=== PATIENT | female | born 2000 | race Caucasian/White ===

== ENCOUNTER 2020-07-21 17:39 | Emergency (ER) | payer SELFPAY ==
[2020-07-21 18:22] VITALS: BP 109/77; PULSE 108; RESP 14; TEMP 36.4; O2SAT 98; BMI 35.5
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
[2020-07-21] MEDS: ketorolac 60 mg/2 mL INJ IM (19:25)
[2020-07-21 20:06] VITALS: BP 113/75; PULSE 96; RESP 14; O2SAT 97
== END 2020-07-21 20:06 | disposition home or self-care (01) ==
PROVIDERS: Emergency Provider Physician Assistant; PCP Family Medicine
DX: Z04.1 Encounter for examination and observation following transport accident (principal); G44.319 Acute post-traumatic headache, not intractable; R07.89 Other chest pain; V47.6XXA Car passenger injured in collision with fixed or stationary object in traffic accident, initial encounter
CPT/HCPCS: 70450; 71101; 99283; J1885

== ENCOUNTER 2020-11-23 21:00 | Inpatient (IN) | payer SELFPAY ==
[2020-11-23 21:09] VITALS: BP 139/88; PULSE 113; RESP 16; TEMP 36.6; O2SAT 97; BMI 34.7
--- NOTE | 2020-11-23 21:18 | W.ED.PSYCH ---
Documented by User: KARIME Andrade 11/24/20 02:20 HPI - Psych General: Chief Complaint: Psychiatric Symptoms Stated Complaint: SI Time Seen by Provider: 11/23/20 21:12 History of Present Illness: HPI Narrative: Patient is a 20-year-old female comes to the ED with SI. She states she has a history of depression, anxiety and SI and was on some antidepressant medications couple years ago but when she became an adult she lost insurance and has not been on any meds since. Patient says symptoms started approximately 1 week ago. Denies any acute distress or causing worsening symptoms. she denies any plan. She is also a cutter and made some superficial cuts on her left wrist but today before coming to the ED. She endorses worsening depression and she says she sometimes sleeps a lot and other times she can hardly get any sleep during the night. She also endorses increased anxiety currently. Denies any HI, auditory or visual hallucinations. Associated symptoms: Reports depression and suicidal ideation; Deny auditory hallucinations, visual hallucinations or homicidal ideation Review of Systems Const: Denies: fever(s), chills or fatigue Eyes: Denies: change in vision or eye discomfort ENMT: Denies: throat pain, odynophagia, nasal discharge or nasal congestion Card: Denies: chest pain, palpitations, edema, swelling of feet/ankles, dyspnea on exertion or orthopnea Resp: Denies: dyspnea, productive cough or non-productive cough GI: Denies: abdominal pain, nausea, vomiting, diarrhea, constipation or hematochezia : Denies: flank pain, dysuria or hematuria Musc: Denies: neck pain, back pain or extremity swelling Skin/Breast: Denies: rash or new lesions Neuro: Denies: headache(s), numbness in extremities or weakness in extremities Psych: Reports: anxiety, depression, sleeping less, sleeping more and suicidal ideation; Denies: visual hallucinations, auditory hallucinations or homicidal ideation COUNT INCLUDES THE [facility] ED Female Reproductive History: Date of last menstrual period: 11/23/20 Physical Exam Const: COMMON NORMALS: patient oriented x3 HENMT: COMMON NORMALS: normocephalic HEAD & SCALP: normocephalic MOUTH: Normal oral and palatal mucosa present THROAT: posterior oropharynx normal and uvula midline Neck/C-Spine: COMMON NORMALS: supple GENERAL: Yes normal visual inspection Resp: COMMON NORMALS: normal respiratory effort, No retractions, No use of accessory muscles and clear to auscultation bilaterally AUSCULTATION: clear to auscultation bilaterally Cardio: COMMON NORMALS: regular rate, regular rhythm, S1 normal heart sound present, S2 normal heart sound present, No gallops present (Cardio), No clicks present (Cardio), No murmurs present (Cardio) and Peripheral pulses 2+ throughout RATE: regular rate RHYTHM: regular rhythm HEART SOUNDS: S1 normal heart sound present and S2 normal heart sound present PERIPHERAL PULSES: Peripheral pulses 2+ throughout GI: COMMON NORMALS: Normal to inspection, nondistended, normoactive bowel sounds present, Soft to palpation, non-tender and no masses PALPATION: Yes Soft to palpation : COMMON NORMALS: Yes no CVA tenderness BLADDER/KIDNEY EXAM: Yes no CVA tenderness Back/Pelvis: COMMON NORMALS: no CVA tenderness Extremity: COMMON NORMALS: normal to inspection Neuro: COMMON NORMALS: patient oriented x3 and moves all extremities Psych: COMMON NORMALS: Normal thought process present and speech normal APPEARANCE: Yes grossly normal ATTITUDE: Yes calm ACTIVITY/MOTOR BEHAVIOR: Yes Avoids eye contact (attititude/behavior) SPEECH: Yes normal speech MOOD & AFFECT: Yes Flat affect present THOUGHT PROCESS: Normal thought process present THOUGHT CONTENT: Yes Suicidality present, No Homicidality present and No Hallucination(s) present ATTENTION/CONCENTRATION: Yes attention grossly intact and Yes concentration grossly intact MEMORY/COGNITION: Yes memory grossly intact and Yes cognition grossly intact INSIGHT: Fair insight present (Psych) JUDGEMENT: Fair judgement present (Psych) Skin: GENERAL SKIN EXAM: dry skin Course Consultations: Consultation #1: Contacted Dr. Hdz and told about patient case. He agreed to have patient admitted into the NPU. Vital Signs: Vital signs: Vital Signs Temperature 97.5 F L 11/24/20 00:13 Pulse Rate 91 11/24/20 00:13 Respiratory Rate 20 H 11/24/20 00:13 Blood Pressure 111/75 11/24/20 00:13 Pulse Oximetry 95 11/24/20 00:13 MDM - Psych MDM Narrative: Medical decision making narrative: Patient is a 20-year-old female comes to the ED with SI worsening depression symptoms. Patient denies any other physical symptoms such as fever, chills, abdominal pain, nausea/vomiting, chest pain, bladder or bowel symptoms. All prescreening labs performed. I contacted Dr. Hdz about patient case and he agreed to have patient admitted to NPU. Dr. Matamoros placed the admitting orders. Lab Data: Attestation: I reviewed the patient's lab results. Labs: Lab Results 11/23/20 11/23/20 11/23/20 Range/Units 22:00 22:00 22:00 WBC 8.8 (4.5-13.0) 10^3/ uL RBC 5.10 (4.1-5.3) 10^6/u L Hgb 14.8 (11.5-15.3) g/dL Hct 45.6 (37.0-47.0) % MCV 89.4 (81-99) fL MCH 29.0 (28.0-34.0) pg MCHC 32.5 (30.0-36.0) g/dL RDW 13.2 (12.1-15.1) % Plt Count 433 H (130-400) 10^3/c mm MPV 9.8 (7.4-10.4) fL Neut % (Auto) 55.5 % Lymph % (Auto) 35.5 % Casey % (Auto) 6.9 % Eos % (Auto) 1.3 % Baso % (Auto) 0.5 % Neut # (Auto) 4.88 (1.8-8.0) 10^3/u L Lymph # (Auto) 3.1 (1.5-6.5) 10^3/u L Casey # (Auto) 0.6 (0.2-0.9) 10^3/u L Eos # (Auto) 0.1 (0.0-0.8) 10^3/u L Baso # (Auto) 0.0 (0.0-0.1) 10^3/u L Nucleated RBC % (a uto) 0 % Nucleated RBCs # 0.0 /100WBC Sodium 145 (136-145) mmol/L Potassium 3.8 (3.5-5.1) mmol/L Chloride 107 (98-107) mmol/L Carbon Dioxide 25 (22-29) mmol/L Anion Gap 16.8 (5-19) BUN 5 L (6-20) mg/dL Creatinine 0.6 (0.5-0.9) mg/dL GFR Calculation 127.5 (90-130) mL/min Glucose 94 (65-115) mg/dL Calculated Osmolal ity 297 H (285-295) mOsm/k g Calcium 9.2 (8.5-10.5) mg/dL Total Bilirubin 0.2 (0.15-1.2) mg/dL AST 15 (0-32) U/L ALT 15 (0-33) U/L Alkaline Phosphata se 77 (35-105) IU/L Total Protein 7.1 (6.6-8.7) g/dL Albumin 4.0 (3.5-5.2) g/dL Globulin 3.1 (1.3-4.6) g/dL HCG, Qual Negative (Negative) Urine Color (Yellow) Urine Appearance (CLEAR) Urine pH (5-7) Ur Specific Gravit y (1.005-1.030) Urine Protein (Negative) Urine Glucose (UA) (Normal) Urine Ketones (Negative) Urine Blood (Negative) Urine Nitrate (Negative) Urine Bilirubin (Negative) Urine Urobilinogen (Negative) mg/dL Ur Leukocyte Porsha ase (Negative) Urine RBC (0-2) /hpf Urine WBC (0-5) /hpf Ur Squamous Epith Cells (0-5) /hpf Amorphous Sediment Urine Bacteria (NONE) /hpf Urine Mucus /hpf Salicylates < 0.3 L (3-10) mg/dL Urine Opiates Scre en (Negative) ng/mL Acetaminophen 17.0 (10-30) ug/mL Ur Barbiturates Sc reen (Negative) ng/mL Ur Phencyclidine S crn (Negative) ng/mL Ur Amphetamines Sc reen (Negative) ng/mL U Benzodiazepines Scrn (Negative) ng/mL Urine Cocaine Scre en (Negative) ng/mL U Marijuana (THC) Screen (Negative) ng/mL Ethyl Alcohol < 10 (0-10) mg/dL 11/23/20 11/23/20 Range/Units 22:00 22:00 WBC (4.5-13.0) 10^3/ uL RBC (4.1-5.3) 10^6/u L Hgb (11.5-15.3) g/dL Hct (37.0-47.0) % MCV (81-99) fL MCH (28.0-34.0) pg MCHC (30.0-36.0) g/dL RDW (12.1-15.1) % Plt Count (130-400) 10^3/c mm MPV (7.4-10.4) fL Neut % (Auto) % Lymph % (Auto) % Casey % (Auto) % Eos % (Auto) % Baso % (Auto) % Neut # (Auto) (1.8-8.0) 10^3/u L Lymph # (Auto) (1.5-6.5) 10^3/u L Casey # (Auto) (0.2-0.9) 10^3/u L Eos # (Auto) (0.0-0.8) 10^3/u L Baso # (Auto) (0.0-0.1) 10^3/u L Nucleated RBC % (a uto) % Nucleated RBCs # /100WBC Sodium (136-145) mmol/L Potassium (3.5-5.1) mmol/L Chloride (98-107) mmol/L Carbon Dioxide (22-29) mmol/L Anion Gap (5-19) BUN (6-20) mg/dL Creatinine (0.5-0.9) mg/dL GFR Calculation (90-130) mL/min Glucose (65-115) mg/dL Calculated Osmolal ity (285-295) mOsm/k g Calcium (8.5-10.5) mg/dL Total Bilirubin (0.15-1.2) mg/dL AST (0-32) U/L ALT (0-33) U/L Alkaline Phosphata se (35-105) IU/L Total Protein (6.6-8.7) g/dL Albumin (3.5-5.2) g/dL Globulin (1.3-4.6) g/dL HCG, Qual (Negative) Urine Color Yellow (Yellow) Urine Appearance Clear (CLEAR) Urine pH 6 (5-7) Ur Specific Gravit y 1.010 (1.005-1.030) Urine Protein Neg (Negative) Urine Glucose (UA) Norm (Normal) Urine Ketones Negative (Negative) Urine Blood 3+ H (Negative) Urine Nitrate Negative (Negative) Urine Bilirubin Neg (Negative) Urine Urobilinogen 1 H (Negative) mg/dL Ur Leukocyte Porsha ase Negative (Negative) Urine RBC 25-40 H (0-2) /hpf Urine WBC 0-4 H (0-5) /hpf Ur Squamous Epith Cells 10-15 H (0-5) /hpf Amorphous Sediment Not Reportable Urine Bacteria Trace (NONE) /hpf Urine Mucus 4+ /hpf Salicylates (3-10) mg/dL Urine Opiates Scre en Negative (Negative) ng/mL Acetaminophen (10-30) ug/mL Ur Barbiturates Sc reen Negative (Negative) ng/mL Ur Phencyclidine S crn Negative (Negative) ng/mL Ur Amphetamines Sc reen Negative (Negative) ng/mL U Benzodiazepines Scrn Negative (Negative) ng/mL Urine Cocaine Scre en Negative (Negative) ng/mL U Marijuana (THC) Screen Positive H (Negative) ng/mL Ethyl Alcohol (0-10) mg/dL Discharge Plan Discharge Patient Disposition: Admitted As Inpatient Admit Provider: Josse Hdz Clinical Impression: Suicidal ideation Condition: Stable Coding Level of Care Code ED Dye Range Operator for Chg Fwd Exam Comprehensive Documented by User: Danny Matamoros DO 11/24/20 05:32 HPI - Psych General: Chief Complaint: Psychiatric Symptoms Stated Complaint: SI Time Seen by Provider: 11/23/20 21:12 Course Vital Signs: Vital signs: Vital Signs Temperature 97.5 F L 11/24/20 00:13 Pulse Rate 91 11/24/20 00:13 Respiratory Rate 20 H 11/24/20 00:13 Blood Pressure 111/75 11/24/20 00:13 Pulse Oximetry 95 11/24/20 00:13 MDM - Psych MDM Narrative: Medical decision making narrative: Patient originally seen by Mr. Jayro PA-C. I agree with his history, evaluation, and work-up. This patient is medically stable. She is suicidal. She is willing to come in. She will go to the NPU. Lab Data: Labs: Lab Results 11/23/20 11/23/20 11/23/20 Range/Units 22:00 22:00 22:00 WBC 8.8 (4.5-13.0) 10^3/ uL RBC 5.10 (4.1-5.3) 10^6/u L Hgb 14.8 (11.5-15.3) g/dL Hct 45.6 (37.0-47.0) % MCV 89.4 (81-99) fL MCH 29.0 (28.0-34.0) pg MCHC 32.5 (30.0-36.0) g/dL RDW 13.2 (12.1-15.1) % Plt Count 433 H (130-400) 10^3/c mm MPV 9.8 (7.4-10.4) fL Neut % (Auto) 55.5 % Lymph % (Auto) 35.5 % Casey % (Auto) 6.9 % Eos % (Auto) 1.3 % Baso % (Auto) 0.5 % Neut # (Auto) 4.88 (1.8-8.0) 10^3/u L Lymph # (Auto) 3.1 (1.5-6.5) 10^3/u L Casey # (Auto) 0.6 (0.2-0.9) 10^3/u L Eos # (Auto) 0.1 (0.0-0.8) 10^3/u L Baso # (Auto) 0.0 (0.0-0.1) 10^3/u L Nucleated RBC % (a uto) 0 % Nucleated RBCs # 0.0 /100WBC Sodium 145 (136-145) mmol/L Potassium 3.8 (3.5-5.1) mmol/L Chloride 107 (98-107) mmol/L Carbon Dioxide 25 (22-29) mmol/L Anion Gap 16.8 (5-19) BUN 5 L (6-20) mg/dL Creatinine 0.6 (0.5-0.9) mg/dL GFR Calculation 127.5 (90-130) mL/min Glucose 94 (65-115) mg/dL Calculated Osmolal ity 297 H (285-295) mOsm/k g Calcium 9.2 (8.5-10.5) mg/dL Total Bilirubin 0.2 (0.15-1.2) mg/dL AST 15 (0-32) U/L ALT 15 (0-33) U/L Alkaline Phosphata se 77 (35-105) IU/L Total Protein 7.1 (6.6-8.7) g/dL Albumin 4.0 (3.5-5.2) g/dL Globulin 3.1 (1.3-4.6) g/dL HCG, Qual Negative (Negative) Urine Color (Yellow) Urine Appearance (CLEAR) Urine pH (5-7) Ur Specific Gravit y (1.005-1.030) Urine Protein (Negative) Urine Glucose (UA) (Normal) Urine Ketones (Negative) Urine Blood (Negative) Urine Nitrate (Negative) Urine Bilirubin (Negative) Urine Urobilinogen (Negative) mg/dL Ur Leukocyte Porsha ase (Negative) Urine RBC (0-2) /hpf Urine WBC (0-5) /hpf Ur Squamous Epith Cells (0-5) /hpf Amorphous Sediment Urine Bacteria (NONE) /hpf Urine Mucus /hpf Salicylates < 0.3 L (3-10) mg/dL Urine Opiates Scre en (Negative) ng/mL Acetaminophen 17.0 (10-30) ug/mL Ur Barbiturates Sc reen (Negative) ng/mL Ur Phencyclidine S crn (Negative) ng/mL Ur Amphetamines Sc reen (Negative) ng/mL U Benzodiazepines Scrn (Negative) ng/mL Urine Cocaine Scre en (Negative) ng/mL U Marijuana (THC) Screen (Negative) ng/mL Ethyl Alcohol < 10 (0-10) mg/dL 11/23/20 11/23/20 Range/Units 22:00 22:00 WBC (4.5-13.0) 10^3/ uL RBC (4.1-5.3) 10^6/u L Hgb (11.5-15.3) g/dL Hct (37.0-47.0) % MCV (81-99) fL MCH (28.0-34.0) pg MCHC (30.0-36.0) g/dL RDW (12.1-15.1) % Plt Count (130-400) 10^3/c mm MPV (7.4-10.4) fL Neut % (Auto) % Lymph % (Auto) % Casey % (Auto) % Eos % (Auto) % Baso % (Auto) % Neut # (Auto) (1.8-8.0) 10^3/u L Lymph # (Auto) (1.5-6.5) 10^3/u L Casey # (Auto) (0.2-0.9) 10^3/u L Eos # (Auto) (0.0-0.8) 10^3/u L Baso # (Auto) (0.0-0.1) 10^3/u L Nucleated RBC % (a uto) % Nucleated RBCs # /100WBC Sodium (136-145) mmol/L Potassium (3.5-5.1) mmol/L Chloride (98-107) mmol/L Carbon Dioxide (22-29) mmol/L Anion Gap (5-19) BUN (6-20) mg/dL Creatinine (0.5-0.9) mg/dL GFR Calculation (90-130) mL/min Glucose (65-115) mg/dL Calculated Osmolal ity (285-295) mOsm/k g Calcium (8.5-10.5) mg/dL Total Bilirubin (0.15-1.2) mg/dL AST (0-32) U/L ALT (0-33) U/L Alkaline Phosphata se (35-105) IU/L Total Protein (6.6-8.7) g/dL Albumin (3.5-5.2) g/dL Globulin (1.3-4.6) g/dL HCG, Qual (Negative) Urine Color Yellow (Yellow) Urine Appearance Clear (CLEAR) Urine pH 6 (5-7) Ur Specific Gravit y 1.010 (1.005-1.030) Urine Protein Neg (Negative) Urine Glucose (UA) Norm (Normal) Urine Ketones Negative (Negative) Urine Blood 3+ H (Negative) Urine Nitrate Negative (Negative) Urine Bilirubin Neg (Negative) Urine Urobilinogen 1 H (Negative) mg/dL Ur Leukocyte Porsha ase Negative (Negative) Urine RBC 25-40 H (0-2) /hpf Urine WBC 0-4 H (0-5) /hpf Ur Squamous Epith Cells 10-15 H (0-5) /hpf Amorphous Sediment Not Reportable Urine Bacteria Trace (NONE) /hpf Urine Mucus 4+ /hpf Salicylates (3-10) mg/dL Urine Opiates Scre en Negative (Negative) ng/mL Acetaminophen (10-30) ug/mL Ur Barbiturates Sc reen Negative (Negative) ng/mL Ur Phencyclidine S crn Negative (Negative) ng/mL Ur Amphetamines Sc reen Negative (Negative) ng/mL U Benzodiazepines Scrn Negative (Negative) ng/mL Urine Cocaine Scre en Negative (Negative) ng/mL U Marijuana (THC) Screen Positive H (Negative) ng/mL Ethyl Alcohol (0-10) mg/dL Discharge Plan Discharge Patient Disposition: Admitted As Inpatient Admit Provider: Josse Hdz Clinical Impression: Suicidal ideation Condition: Stable Coding Level of Care Code ED Dye Range Operator for Jannyg Fwd Exam Comprehensive
[2020-11-23] MEDS: LORazepam 1 mg Tablet PO (21:49)
[2020-11-23 22:13] LABS: Basophils % 0.5 %; Eosinophils # 0.1 10^3/uL (0.0-0.8); Eosinophils % 1.3 %; Hematocrit 45.6 % (37.0-47.0); Hemoglobin 14.8 g/dL (11.5-15.3); Lymphocytes # 3.1 10^3/uL (1.5-6.5); Lymphocytes % 35.5 %; Mean Corpuscular HGB Conc 32.5 g/dL (30.0-36.0); Mean Corpuscular Volume 89.4 fL (81-99); Mean Platelet Volume 9.8 fL (7.4-10.4); Monocytes # 0.6 10^3/uL (0.2-0.9); Monocytes % 6.9 %; Neutrophils # 4.88 10^3/uL (1.8-8.0); Neutrophils % 55.5 %; Nucleated Red Blood Cells % 0 %; Platelet Count 433 10^3/cmm (130-400); Red Cell Distribution Width 13.2 % (12.1-15.1); White Blood Count 8.8 10^3/uL (4.5-13.0)
[2020-11-23 22:22] LABS: HCG, Serum Qual Negative (Negative)
[2020-11-23 22:29] LABS: Alanine Aminotransferase 15 U/L (0-33); Alkaline Phosphatase 77 IU/L (35-105); Anion Gap 16.8 (5-19); Aspartate Amino Transferase 15 U/L (0-32); Blood Urea Nitrogen 5 mg/dL (6-20); Calcium 9.2 mg/dL (8.5-10.5); Carbon Dioxide 25 mmol/L (22-29); Chloride 107 mmol/L (98-107); Globulin 3.1 g/dL (1.3-4.6); Glomerular Filtration Rate 127.5 mL/min (90-130); Glucose 94 mg/dL (65-115); Osmolality Calculated 297 mOsm/kg (285-295); Potassium 3.8 mmol/L (3.5-5.1); Sodium 145 mmol/L (136-145); Total Bilirubin 0.2 mg/dL (0.15-1.2); Total Protein 7.1 g/dL (6.6-8.7)
[2020-11-23 22:30] LABS: Alcohol Level < 10 mg/dL (0-10); Salicylate < 0.3 mg/dL (3-10)
[2020-11-23 22:36] LABS: Amphetamines Screen Urine Negative (Negative); Barbiturates Screen Urine Negative (Negative); Benzodiazepines Screen Urine Negative (Negative); Cocaine Screen Urine Negative (Negative); Opiate Screen Urine Negative (Negative); PCP Screen Urine Negative (Negative); THC Screen Urine Positive (Negative)
[2020-11-23 22:42] LABS: Bilirubin Urine Neg (Negative); Blood Urine 3+ (Negative); Glucose Urine UA Norm (Normal); Ketones Urine Negative (Negative); Leukocyte Esterase Urine Negative (Negative); Nitrate Urine Negative (Negative); Protein Urine Neg (Negative); Urine Appearance Clear (CLEAR); Urine Color Yellow (Yellow); Urobilinogen Urine 1 mg/dL (Negative); pH Urine 6 (5-7)
[2020-11-23 22:43] LABS: Bacteria Urine TRACE /hpf; Mucus Urine 4+ /hpf; RBC Urine 25-40 /hpf (0-2); WBC Urine 0-4 /hpf (0-5)
[2020-11-23 22:44] LABS: Add Urine Culture? No
[2020-11-24 00:13] VITALS: BP 111/75; PULSE 91; RESP 20; TEMP 36.4; O2SAT 95
[2020-11-24 00:14] VITALS: BMI 35.7
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
[2020-11-24 06:00] VITALS: BP 96/52; PULSE 57; RESP 16; TEMP 36.9
[2020-11-24 14:00] VITALS: BP 111/75; PULSE 57; RESP 16; TEMP 36.7; O2SAT 98
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
--- NOTE | 2020-11-24 18:37 | PC.NURSE ---
Patient became tearful and upset after this nurse asked patient to remove a cardigan that had strings on the bottom, a nose ring and a surgical mask. Possessions were placed in the the patients storage bin and safe. Nurse will continue to monitor patient and redirect as needed.
[2020-11-24] MEDS: nicotine 2 mg Gum BUCCAL (19:22)
[2020-11-24 20:12] VITALS: BP 133/79; PULSE 75; RESP 15; TEMP 36.9; O2SAT 98
[2020-11-24] MEDS: trazodone 50 mg Tablet PO (20:50)
[2020-11-25 06:00] VITALS: BP 106/70; PULSE 81; RESP 15; TEMP 37; O2SAT 96
[2020-11-25] MEDS: nicotine 2 mg Gum BUCCAL ×3 (11:21→19:37)
[2020-11-25] MEDS: citalopram 20 mg Tablet PO (13:40)
[2020-11-25] MEDS: propranolol 20 mg Tablet PO ×2 (13:40→21:37)
[2020-11-25 14:00] VITALS: BP 103/65; PULSE 70; RESP 16; TEMP 36.7; O2SAT 98
[2020-11-25] MEDS: acetaminophen 325 mg Tablet 650 MG PO ×2 (15:39→22:27)
--- NOTE | 2020-11-25 16:05 | P.PN_ITS ---
Subjective NPU Subjective: Interval history: Nas presents today reporting that things are slowly improving. She reports that she is reached out to her family and she does not have some supports after discharge. She reports that work is important and she needs to make sure that she is back on track with that as well. We discussed her medications plan moving forward. We discussed that if she wanted to resume the Adderall she would have to work with her outpatient provider who has been prescribing that on that. She reports that her insurance is a big factor in her not being on her medication still. She reports that she should have insurance soon. We discussed the possibility of discharge in the next 48 hours. Mental Status Exam MSE Comments: This is an obese white female with two-tone colored hightop fade with it significantly longer on the top hospital scrubs with adequate grooming and eye contact. No abnormal movements except for mild psychomotor retardation. Cooperative with exam in no acute distress. Speech was slightly decreased mood described as numb affect subdued. Thought process organized. Thought content: Patient denied suicidal or homicidal ideation, there are no delusions reported or noted, she denied any auditory or visual donations. Attention concentration were intact memory appeared reliable but none were fully tested. She alert and oriented x3. Insight and judgment are limited, but improving and impulse control is limited. Vitals/I&O/Wt Last Vital Signs Temp 97.8 F 11/25/20 21:14 Pulse 96 11/25/20 21:14 Resp 20 H 11/25/20 21:14 BP 124/84 11/25/20 21:14 Pulse Ox 100 11/25/20 21:14 Data NPU : 11/23/20 22:00 11/23/20 22:00 A&P Additional A&P Information (1) Suicidal ideation: (2) PTSD (post-traumatic stress disorder): (3) Cluster B personality disorder: (4) Depression: (5) Alcohol use: (6) Cannabis use disorder, mild, abuse: Additional A&P Information This is a 20-year-old white female with a long history of trauma depression and pain issues with them likely cluster B personality traits who presents off of medication due to insurance considerations with a plan to be with insurance soon hoping to get her medications restarted. 1. Continue current medication. We restarted her Celexa, trazodone and propranolol with a plan to start Lamictal prior to discharge. 2. Continue every 15 minute checks for safety. 3. Encourage individual, group and milieu therapies. 4. Encourage sober living treatment after discharge at the highest level of care to which he is willing to commit. Attestations NPU Medical Necessity Statement*: Inpatient hospitalization is medically necessary and the clinically appropriate intervention at this time. We will monitor medications and make changes as indicated. Likely length of stay 1-3 days. Coding Level of Care Code Acute Warble Saw Operator for Winsome Muñoz
[2020-11-25 21:14] VITALS: BP 124/84; PULSE 96; RESP 20; TEMP 36.6; O2SAT 100
[2020-11-25] MEDS: trazodone 50 mg Tablet PO (21:38)
--- NOTE | 2020-11-25 22:30 | PC.NURSE ---
pt requested med for a headache, tylenol 650mg po given.
[2020-11-26 06:00] VITALS: BP 99/54; PULSE 63; RESP 18; TEMP 36.7; O2SAT 97
[2020-11-26] MEDS: propranolol 20 mg Tablet PO (09:54)
[2020-11-26] MEDS: lamoTRIgine 25 mg Tablet PO (09:54)
[2020-11-26] MEDS: citalopram 20 mg Tablet PO (09:54)
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
[2020-11-26 11:35] VITALS: BP 99/54; PULSE 63; RESP 18; TEMP 36.7; O2SAT 97
== END 2020-11-26 11:49 | disposition home or self-care (01) | DRG 881 ==
LOC: ER 23:56 → NP 11-24 00:10
PROVIDERS: Admitting Provider Psychiatry & Neurology Psychiatry; Emergency Provider Physician Assistant; PCP Family Medicine; Visit Provider Psychiatry & Neurology Psychiatry
DX: F32.9 Major depressive disorder, single episode, unspecified (principal); R45.851 Suicidal ideations; F60.89 Other specific personality disorders; F43.10 Post-traumatic stress disorder, unspecified; F41.9 Anxiety disorder, unspecified; F12.10 Cannabis abuse, uncomplicated; E66.9 Obesity, unspecified; G47.9 Sleep disorder, unspecified; Z72.89 Other problems related to lifestyle; Z81.8 Family history of other mental and behavioral disorders; Z62.810 Personal history of physical and sexual abuse in childhood; Z68.35 Body mass index [BMI] 35.0-35.9, adult; Z91.5 Personal history of self-harm
CPT/HCPCS: 80053; 80306; 80307; 81001; 84703; 85025; 99285

== ENCOUNTER 2021-03-19 00:41 | Emergency (ER) | payer SELFPAY ==
[2021-03-19 00:59] VITALS: BP 140/90; PULSE 84; RESP 18; TEMP 37.1; O2SAT 98; BMI 36.6
--- NOTE | 2021-03-19 01:06 | ECG_ITS ---
[facility] Test Date: 2021-03-19 Pat Name: Nas Haji Department: Room: Gender: Female Egg Breaker: : 2000 Requested By: Carlos Dial Order Number: [id number] Amaro MD: Gaby Bravo M.D. Measurements Intervals [place] Rate: 70 P: 42 IN: 146 QRS: 43 QRSD: 95 T: 27 QT: 412 QTc: 446 Interpretive Statements SINUS RHYTHM WITH MARKED SINUS ARRHYTHMIA Compared to ECG 08/03/2016 00:58:10 Short IN interval no longer present Electronically Signed On 03-20-2021 5:46:04 CDT by Gaby Bravo M.D. [id number]
--- NOTE | 2021-03-19 01:06 | XRR_ITS ---
PROCEDURE INFORMATION: Exam: XR Chest Exam date and time: 03/19/2021 1:06 AM Age: 20 years old Clinical indication: Shortness of breath; Patient HX: C/O SOB TECHNIQUE: Imaging protocol: XR of the chest. Views: 1 view. COMPARISON: CR XR ribs LT mn 3V w CXR1V [id number] 07/21/2020 7:09 PM FINDINGS: Lungs: Unremarkable. No consolidation. Pleural spaces: Unremarkable. No pleural effusion. No pneumothorax. Heart/Mediastinum: Unremarkable. No cardiomegaly. Bones/joints: Unremarkable. XR/XR chest 1V portable [id number] IMPRESSION: No acute findings. Radiation Dose CTDIVOL = (mGy): DLP = (mGy-cm)
--- NOTE | 2021-03-19 01:07 | ED_ITS ---
HPI - SOB/Dyspnea General: Chief Complaint: Shortness of Breath/Dyspnea Stated Complaint: SOB, chest discomfort Time Seen by Provider: 03/19/21 00:46 History of Present Illness: HPI Narrative: Patient is a 20-year-old female comes to the ED with shortness of breath. Patient has a history of depression, anxiety, PTSD and panic attacks. Her symptoms of shortness of breath started approximately a week ago. She also describes having some mild chest discomfort that is located all throughout her chest. this seems similar to past anxiety attacks but they have never went on this long. Symptoms get worse when she is around people and sometimes she gets the symptoms as well when she is alone. Patient has a prescription for propranolol to take for acute anxiety but says it does not work that well and she has not been taking it. She feels like her depr ession has improved over the past couple months. Denies any SI, HI, auditory or visual hallucinations. Denies any fever, chills, cough, upper respiratory symptoms, abdominal pain, bladder or bowel symptoms. She endorses having an episode of emesis today after she ate. Associated symptoms: Reports chest pain (mild discomfort-similar to past anxiety attacks); Deny abdominal pain, fever(s), nausea, orthopnea, palpitations or vomiting Review of Systems Const: Denies: fever(s), chills or fatigue Eyes: Denies: change in vision or eye discomfort ENMT: Denies: throat pain, odynophagia, nasal discharge or nasal congestion Card: Reports: chest pain (mild discomfort-similar to past anxiety attacks); Denies: palpitations, edema, swelling of feet/ankles, dyspnea on exertion or orthopnea Resp: Reports: dyspnea; Denies: productive cough or non-productive cough GI: Denies: abdominal pain, nausea, vomiting, diarrhea, constipation or hematochezia : Denies: flank pain, dysuria or hematuria Musc: Denies: neck pain, back pain or extremity swelling Skin/Breast: Denies: rash or new lesions Neuro: Denies: headache(s), numbness in extremities or weakness in extremities Psych: Reports: anxiety; Denies: visual hallucinations, auditory hallucinations, suicidal ideation or homicidal ideation [facility] ED Female Reproductive History: Date of last menstrual period: 11/23/20 Physical Exam Const: COMMON NORMALS: no acute distress, patient oriented x3, healthy appearing and alert GENERAL APPEARANCE: cooperative and anxious HENMT: COMMON NORMALS: normocephalic HEAD & SCALP: normocephalic MOUTH: Normal oral and palatal mucosa present THROAT: posterior oropharynx normal and uvula midline Eye: COMMON NORMALS: Equal, round and reactive pupils present PUPIL: Yes Equal, round and reactive pupils present Neck/C-Spine: COMMON NORMALS: supple GENERAL: Yes normal visual inspection Resp: COMMON NORMALS: normal respiratory effort, No retractions, No use of accessory muscles and clear to auscultation bilaterally EFFORT & INSPECTION: Yes able to speak in complete sentences, No tachypneic, No respiratory distress and No labored AUSCULTATION: clear to auscultation bilaterally Cardio: COMMON NORMALS: regular rate, regular rhythm, S1 normal heart sound present, S2 normal heart sound present, No gallops present (Cardio), No clicks present (Cardio), No murmurs present (Cardio) and Peripheral pulses 2+ throughout RATE: regular rate RHYTHM: regular rhythm HEART SOUNDS: S1 normal heart sound present and S2 normal heart sound present PERIPHERAL PULSES: Peripheral pulses 2+ throughout GI: COMMON NORMALS: Normal to inspection, nondistended, normoactive bowel sounds present, Soft to palpation, non-tender and no masses PALPATION: Yes Soft to palpation : COMMON NORMALS: Yes no CVA tenderness BLADDER/KIDNEY EXAM: Yes no CVA tenderness Back/Pelvis: COMMON NORMALS: no CVA tenderness Extremity: COMMON NORMALS: normal to inspection Neuro: COMMON NORMALS: patient oriented x3 and moves all extremities SENSORIUM/ORIENTATION: Yes alert Psych: COMMON NORMALS: mental status grossly normal, Normal thought process present and speech normal APPEARANCE: Yes grossly normal ATTITUDE: Yes calm ACTIVITY/MOTOR BEHAVIOR: Yes appropriate eye contact SPEECH: Yes normal speech MOOD & AFFECT: Yes anxious (Symptoms worsen when around people) and Yes tearful (When talking about her anxiety symptoms) THOUGHT PROCESS: Normal thought process present THOUGHT CONTENT: Yes Normal thought content present, No Suicidality present, No Homicidality present and No Hallucination(s) present ATTENTION/CONCENTRATION: Yes attention grossly intact and Yes concentration grossly intact MEMORY/COGNITION: Yes memory grossly intact and Yes cognition grossly intact INSIGHT: Good insight present (Psych) JUDGEMENT: Good judgement present (Psych) Skin: GENERAL SKIN EXAM: dry skin Course ED course: I talked with patient extensively about anxiety and told her that she needs to continue taking her prescribed propranolol to help with acute anxiety. I asked again if she is having any other issues or thoughts of suicide. Patient denied any SI and says that she has not had any thoughts of SI since her last psych hospitalization back on 11/24/20. While I was in the room talking to patient for approximately 10 minutes her pulse ox continued to be 95% and above. Her breathing appeared unlabored. Reevaluation(s): Reevaluation #1: After patient received Ativan her symptoms did improve. Anxiety is almost completely resolved and her shortness of breath has improved. Time: 02:10 Vital Signs: Vital signs: Vital Signs Temperature 98.7 F 03/19/21 00:59 Pulse Rate 76 03/19/21 02:29 Respiratory Rate 16 03/19/21 02:29 Blood Pressure 136/89 03/19/21 02:29 Pulse Oximetry 90 03/19/21 02:29 MDM - SOB/Dyspnea MDM Narrative: Medical decision making narrative: Patient is a 20-year-old female comes to the ED with shortness of breath. Patient has a history of anxiety, PTSD and depression. She says her current symptoms are like past acute anxiety attacks. Symptoms started approximately 7 days ago. Patient denies any SI, HI or any auditory visual hallucinations. She has a prescription of propranolol for acute anxiety but has not been taking it because she does not think it works. Exam shows a healthy and nontoxic appearing 20-year-old female that appears anxious. Rest of exam was benign. Vitals stable and patient patient was given a dose of Ativan while here in the ED and her symptoms improved. Chest x-ray showed no acute findings. EKG showed. Vitals are stable. I placed an order with case management for patient to be referred to behavioral health for follow-up and further evaluation of anxiety. Patient was discharged home with a prescription for Vistaril to use for any acute anxiety. I encourage patient to still try to use propranolol first to help with any acute anxiety attacks and if the propranolol is not working she can take the Vistaril. Return to ED precautions given. Told patient case mgr will contact in the next several days to set up an appointment with behavioral health. Patient understood and agreed with plan. Imaging Data^: CXR: Attestation: I personally reviewed and interpreted this imaging study as follows: My impression: chest x-ray showed no acute findings or infiltrates Radiologist's impression: [facility] [place], [place] [address]OFkv ReportSigned Patient: Nas Haji #: [id number]: 2000Acct#:[id number]/Sex: 20 / FADM Date: 03/19/21Loc: ERRoom/Bed:Attending Dr: Ordering Provider/Ordering MD: Carlos Dial Date of Service: 03/19/21 Procedure(s): XR chest 1V portable [id number] Accession Number(s): [id number] Report Number: [id number] PROCEDURE INFORMATION: Exam: XR Chest Exam date and time: 03/19/2021 1:06 AM Age: 20 years old Clinical indication: Shortness of breath; Patient HX: C/O SOB TECHNIQUE: Imaging protocol: XR of the chest. Views: 1 view. COMPARISON: CR XR ribs LT mn 3V w CXR1V [id number] 07/21/2020 7:09 PM FINDINGS: Lungs: Unremarkable. No consolidation. Pleural spaces: Unremarkable. No pleural effusion. No pneumothorax. Heart/Mediastinum: Unremarkable. No cardiomegaly. Bones/joints: Unremarkable. XR/XR chest 1V portable [id number] IMPRESSION: No acute findings. Radiation Dose CTDIVOL = (mGy): DLP = (mGy-cm) Dictated By:Ramana Osullivan MDSigned By:Ramana Osullivan MDSigned Date/Time:03/19/217DD/ 5 EKG Data^: EKG 1: Attestation: I personally reviewed and interpreted this EKG as follows: EKG Interpretation Date: 03/19/21 Interpretation: Sinus rhythm, 70 bpm, no ST segment elevation or depression seen. Discharge Plan Discharge Patient Disposition: Home Clinical Impression: Acute anxiety Condition: Stable Prescriptions: New Vistaril 50 mg capsule 50 mg PO Q8H PRN (Reason: acute anxiety) Qty: 30 RF: 0 No Action No Known Home Medications RF: 0 trazodone 50 mg Tablet 50 mg PO BEDTIME 30 Days Qty: 30 RF: 1 citalopram 20 mg Tablet 20 mg PO DAILY 30 Days Qty: 30 RF: 1 propranolol 20 mg Tablet 20 mg PO TID 30 Days Qty: 90 RF: 1 Lamictal 100 mg tablet 100 mg PO DAILY Qty: 30 RF: 1 Discharge Orders: Discharge ED (Routine); Ordered 03/19/21 Ordered By: Carlos Dial Discharge Diet: Regular Discharge Activity: Increase activity as tolerated Patient Instructions: Anxiety (ED) Activity Restrictions/Additional Instructions: Follow-up with medical provider as directed. Case management should be contacting you in the next several days to set up an appointment with behavioral health. Take medications as prescribed. Return to the ER or your medical provider if condition worsens. Please read and understand discharge instructions. Thank you for choosing [facility] for your healthcare needs today. Please realize this is an emergency room and that we are providing you with a medical screening exam and this may not be complete and all inclusive of all the testing and or work up that you may need to determine your ailment or severity of your illness. It is very important that you follow up as instructed or that you return to the Emergency Department should you have concerns or if your condition changes or worsens in any way. Coding Level of Care Code ED Supervisor Riprap Placing for Winsome Fwellie Exam Comprehensive
[2021-03-19] MEDS: LORazepam 2 mg/mL INJ 1 mL IM (01:25)
[2021-03-19 02:29] VITALS: BP 136/89; PULSE 76; RESP 16; O2SAT 90
[2021-03-19] MEDS: hyDROXYzine 25 mg Capsule PO (02:29)
--- NOTE | 2021-03-24 15:17 | DCPLANNER ---
real estate operations manager had message to speak with patient about getting services at [facility]. real estate operations manager called and spoke with patient, informed patient how to get services at [facility]. real estate operations manager explained to patient that she would need to go to [facility] anytime from 7:30 to 3:00 and fill out the initial paperwork and turn it in. real estate operations manager did explain to patient that [facility] pays for services at [facility] if patient did not have insurance.
== END 2021-03-19 02:20 | disposition home or self-care (01) ==
PROVIDERS: Emergency Provider Physician Assistant
DX: F41.9 Anxiety disorder, unspecified (principal)
CPT/HCPCS: 71045; 93005; 96372; 99283; J2060

== ENCOUNTER 2021-08-31 14:46 | Emergency (ER) | payer SELFPAY ==
[2021-08-31 15:17] VITALS: BP 139/86; PULSE 85; RESP 16; TEMP 37.2; O2SAT 99; BMI 37.5
--- NOTE | 2021-08-31 15:40 | XR_ITS ---
WS: [id number] Exam: XR chest 1V portable [id number] Date/Time of Exam: 08/31/2021 3:40 PM Reason For Exam: cough and congestion Comparison 03/19/2021. Findings: The lungs are clear and fully expanded. Costophrenic angles are sharp. No infiltrates. Bronchovascula r relief appears normal. Cardiac silhouette is unremarkable. Bony elements are intact. XR/XR chest 1V portable [id number] IMPRESSION: Unremarkable chest radiograph.
--- NOTE | 2021-08-31 15:42 | ED_ITS ---
Documented by User: KARIME Andrade 09/01/21 07:33 HPI - Headache General: Chief Complaint: Headache Stated Complaint: Fever, sick past week Time Seen by Provider: 08/31/21 15:28 History of Present Illness: Patient is a 21-year-old female comes to the ED wi th headache. Symptoms started about 5 days ago. She has a history of migraines and says this is similar to her past migraines. She rates her headache an 8 out of 10 and it is located all throughout her head but the more intense pain is behind both eyes. Endorses worsening headache with loud noises and lights. She has had nausea with it as well but no emesis. She has been taking Tylenol and i buprofen for the past 5 days and it has not helped. Patient also complaining of having a sore throat, cough and nasal congestion drainage. Upper respiratory symptoms started a little over 5 days ago as well. Cough was productive initially but is now become dry and nonproductive. Her cough and sore throat are improving over the past 5 days. Denies any fevers, vision changes, numbness/tingling or weakness to extremities or 1 side of face. Associated symptoms: Reports nausea; Deny chest pain, fever(s), rash or vomiting Review of Systems Const: Denies: fever(s), chills or fatigue Eyes: Reports: photophobia; Denies: change in vision or eye discomfort ENMT: Reports: throat pain, nasal discharge and nasal congestion; Denies: odynophagia Card: Denies: chest pain, palpitations, edema, swelling of feet/ankles, dyspnea on exertion or orthopnea Resp: Reports: non-productive cough; Denies: dyspnea or productive cough GI: Reports: nausea; Denies: abdominal pain, vomiting, diarrhea, constipation or hematochezia : Denies: flank pain, dysuria or hematuria Musc: Denies: neck pain, back pain or extremity swelling Skin/Breast: Denies: rash or new lesions Neuro: Reports: headache(s); Denies: numbness in extremities or weakness in extremities [facility] ED PFSH: Medical History Depression PTSD (post-traumatic stress disorder) Surgical History No pertinent past surgical history Female Reproductive History: Date of last menstrual period: 11/23/20 Physical Exam Const: COMMON NORMALS: no acute distress, patient oriented x3 and alert GENERAL APPEARANCE: cooperative and comfortable HENMT: COMMON NORMALS: normocephalic HEAD & SCALP: normocephalic MOUTH: Normal oral and palatal mucosa present THROAT: uvula midline, abnormal tonsil bilateral erythema and hypertrophy 1+ and posterior oropharynx abnormal erythema Eye: COMMON NORMALS: Equal, round and reactive pupils present GENERAL EYE: appearance normal, both eyes and all related structures PUPIL: Yes Equal, round and reactive pupils present Neck/C-Spine: COMMON NORMALS: supple GENERAL: Yes normal visual inspection Resp: COMMON NORMALS: normal respiratory effort, No retractions, No use of accessory muscles and clear to auscultation bilaterally AUSCULTATION: clear to auscultation bilaterally Cardio: COMMON NORMALS: regular rate, regular rhythm, S1 normal heart sound present, S2 normal heart sound present, No gallops present (Cardio), No clicks present (Cardio), No murmurs present (Cardio) and Peripheral pulses 2+ throughout RATE: regular rate RHYTHM: regular rhythm HEART SOUNDS: S1 normal heart sound present and S2 normal heart sound present PERIPHERAL PULSES: Peripheral pulses 2+ throughout GI: COMMON NORMALS: Normal to inspection, nondistended, normoactive bowel sounds present, Soft to palpation, non-tender and no masses PALPATION: Yes Soft to palpation : COMMON NORMALS: Yes no CVA tenderness BLADDER/KIDNEY EXAM: Yes no CVA tenderness Back/Pelvis: COMMON NORMALS: no CVA tenderness Extremity: COMMON NORMALS: normal to inspection Neuro: COMMON NORMALS: patient oriented x3 and moves all extremities SENSORIUM/ORIENTATION: Yes alert Skin: GENERAL SKIN EXAM: dry skin Course Vital Signs: Vital signs: Vital Signs Temperature 99 F 08/31/21 15:17 Pulse Rate 85 08/31/21 15:17 Respiratory Rate 16 08/31/21 15:17 Blood Pressure 139/86 08/31/21 15:17 Pulse Oximetry 99 08/31/21 15:17 MDM - Headache Lab Data Radiology Impressions Chest X-Ray 08/31/21 15:40 IMPRESSION: Unremarkable chest radiograph. Laboratory Results Group A Strep Rapid Negative (Negative) 08/31/21 17:46 Discharge Plan Discharge Patient Disposition: Home Clinical Impression: Migraine Qualifiers: Migraine type: unspecified Status migrainosus presence: without status migrainosus Intractability: not intractable Qualified Code(s): G43.909 - Migraine, unspecified, not intractable, without status migrainosus Pharyngitis Qualifiers: Pharyngitis/tonsillitis etiology: unspecified etiology Qualified Code(s): J02.9 - Acute pharyngitis, unspecified Condition: Stable Prescriptions: No Action Vistaril 50 mg capsule 50 mg PO Q8H PRN (Reason: acute anxiety) Qty: 30 0RF No Known Home Medications 0RF trazodone 50 mg Tablet 50 mg PO BEDTIME 30 Days Qty: 30 1RF citalopram 20 mg Tablet 20 mg PO DAILY 30 Days Qty: 30 1RF propranolol 20 mg Tablet 20 mg PO TID 30 Days Qty: 90 1RF Lamictal 100 mg tablet 100 mg PO DAILY Qty: 30 1RF Rx Instructions: Start after 25 mg titration complete. Discharge Orders: Discharge ED (Routine); Ordered 08/31/21 Ordered By: Octavio Rush Discharge Diet: Regular Discharge Activity: Increase activity as tolerated Patient Instructions: Migraine Headache (ED) Activity Restrictions/Additional Instructions: Follow-up with your primary care physician in the next 7 to 10 days for reevaluation. Continue taking all home medications as previously prescribed. Return to the ER or your medical provider if condition worsens. Please read and understand discharge instructions. Thank you for choosing [facility] for your healthcare needs today. Please realize this is an emergency room and that we are providing you with a medical screening exam and this may not be complete and all inclusive of all the testing and or work up that you may need to determine your ailment or severity of your illness. It is very important that you follow up as instructed or that you return to the Emergency Department should you have concerns or if your condition changes or worsens in any way. Stand Alone Forms: Work/School Release Sign Out Sign Out Data: Patient Sign Out occurred on 08/31/21 at 17:05. Patient's care was discussed, and care was transferred from to Octavio Rush. Post-Handoff Eval: Strep test was negative. Patient report resolutionof headache. Patient was released to home with work note for tonight. Coding Level of Care Code ED Beamer Hand for Chg Fwd Exam Comprehensive Documented by User: CAMRON Frey 08/31/21 18:02 HPI - Headache General: Chief Complaint: Headache Stated Complaint: Fever, sick past week Time Seen by Provider: 08/31/21 15:28 PFSH ED PFSH: Medical History Depression PTSD (post-traumatic stress disorder) Surgical History No pertinent past surgical history Course Vital Signs: Vital signs: Vital Signs Temperature 99 F 08/31/21 15:17 Pulse Rate 85 08/31/21 15:17 Respiratory Rate 16 08/31/21 15:17 Blood Pressure 139/86 08/31/21 15:17 Pulse Oximetry 99 08/31/21 15:17 MDM - Headache Medical Decision Making Patient came in today with complaints of headache and sore throat. Patient has felt ill for about 5 days. Patient does have a history of migraines. Exam showed some erythema to the posterior pharynx. Lungs were clear to auscultation. Skin was warm and dry. Differential diagnosis included but not limited to migraine headache, upper respiratory infection, strep pharyngitis. Chest x-ray was normal. Strep test was negative. Patient was given a migraine cocktail for headache and it resolved. Reviewed exam with patient with recommendations for fluids and rest. Patient reported understanding and agreed to plan. Lab Data Radiology Impressions Chest X-Ray 08/31/21 15:40 IMPRESSION: Unremarkable chest radiograph. Laboratory Results Group A Strep Rapid Negative (Negative) 08/31/21 17:46 Discharge Plan Discharge Patient Disposition: Home Clinical Impression: Migraine Qualifiers: Migraine type: unspecified Status migrainosus presence: without status migrainosus Intractability: not intractable Qualified Code(s): G43.909 - Migraine, unspecified, not intractable, without status migrainosus Pharyngitis Qualifiers: Pharyngitis/tonsillitis etiology: unspecified etiology Qualified Code(s): J02.9 - Acute pharyngitis, unspecified Condition: Stable Prescriptions: No Action Vistaril 50 mg capsule 50 mg PO Q8H PRN (Reason: acute anxiety) Qty: 30 0RF No Known Home Medications 0RF trazodone 50 mg Tablet 50 mg PO BEDTIME 30 Days Qty: 30 1RF citalopram 20 mg Tablet 20 mg PO DAILY 30 Days Qty: 30 1RF propranolol 20 mg Tablet 20 mg PO TID 30 Days Qty: 90 1RF Lamictal 100 mg tablet 100 mg PO DAILY Qty: 30 1RF Rx Instructions: Start after 25 mg titration complete. Discharge Orders: Discharge ED (Routine); Ordered 08/31/21 Ordered By: Octavio Rush Discharge Diet: Regular Discharge Activity: Increase activity as tolerated Patient Instructions: Migraine Headache (ED) Activity Restrictions/Additional Instructions: Follow-up with your primary care physician in the next 7 to 10 days for reevaluation. Continue taking all home medications as previously prescribed. Return to the ER or your medical provider if condition worsens. Please read and understand discharge instructions. Thank you for choosing [facility] for your healthcare needs today. Please realize this is an emergency room and that we are providing you with a medical screening exam and this may not be complete and all inclusive of all the testing and or work up that you may need to determine your ailment or severity of your illness. It is very important that you follow up as instructed or that you return to the Emergency Department should you have concerns or if your condition changes or worsens in any way. Stand Alone Forms: Work/School Release Sign Out Sign Out Data: Patient Sign Out occurred on 08/31/21 at 17:05. Patient's care was discussed, and care was transferred from to Octavio Rush. Post-Handoff Eval: Strep test was negative. Patient report resolutionof headache. Patient was released to home with work note for tonight. Coding Level of Care Code ED Beamer Hand for Winsome Muñoz Exam Comprehensive
[2021-08-31] MEDS: sodium chloride 0.9% 500 ML 999 ML IV (16:21)
[2021-08-31] MEDS: dexamethasone 10 mg/mL INJ IVP (16:26)
[2021-08-31] MEDS: metoclopramide 5 mg/mL SDV 2 mL 10 MG IVP (16:26)
[2021-08-31] MEDS: ketorolac 30 mg/mL INJ IVP (16:26)
[2021-08-31] MEDS: diphenhydrAMINE 50 mg/mL SDV 1mL 25 MG IVP (16:26)
[2021-08-31 17:57] LABS: Rapid Strep A Test Negative (Negative)
== END 2021-08-31 17:50 | disposition home or self-care (01) ==
PROVIDERS: Physician Assistant; Emergency Provider Nurse Practitioner Family
DX: G43.909 Migraine, unspecified, not intractable, without status migrainosus (principal); J02.9 Acute pharyngitis, unspecified
CPT/HCPCS: 71045; 87081; 87880; 96374; 96375; 99283; J1100; J1200; J1885; J2765; J7040

== ENCOUNTER 2021-10-29 02:13 | Emergency (ER) | payer SELFPAY ==
[2021-10-29 02:23] VITALS: BP 144/104; PULSE 70; RESP 18; TEMP 36.6; O2SAT 95; BMI 34.5
--- NOTE | 2021-10-29 02:29 | CTR_ITS ---
PROCEDURE INFORMATION: Exam: CT Head Without Contrast Exam date and time: 10/29/2021 2:43 AM Age: 21 years old Clinical indication: Injury or trauma; Fall; Blunt trauma (contusions or hematomas); Patient HX: Patient fell at home from becoming dizzy and struck head. C/O generalized headache. History of migraines. ; Additional info: Head injury TECHNIQUE: Imaging protocol: Computed tomography of the head without contrast. Radiation optimization: All CT scans at this facility use at least one of these dose optimization techniques: automated exposure control; mA and/or kV adjustment per patient size (includes targeted exams where dose is matched to clinical indication); or iterative reconstruction. COMPARISON: CT head wo con* [id number] 07/21/2020 7:06 PM RADIATION DOSE METRICS: Total DLP (mGy-cm): 782.65 FINDINGS: Brain: No acute intracranial hemorrhage or mass effect. No definite acute infarct by CT. MRI could be more sensitive/specific for detection, as clinically directed. Cerebral ventricles: Ventricle size is normal for age. Paranasal sinuses: Included paranasal sinuses are essentially clear. Mastoid air cells: No significant acute finding. Bones/joints: No definite acute skull fracture. Soft tissues: No significant acute finding. CT/CT head wo con* [id number] IMPRESSION: 1. No acute intracranial hemorrhage or mass effect. 2. No definite acute infarct by CT, see above. 3. Other findings discussed above.
--- NOTE | 2021-10-29 02:32 | ED_ITS ---
HPI - Nausea/Vomiting/Diarrhea General: Chief complaint: Nausea/Vomiting/Diarrhea Stated complaint: N/V,fall/hit head Time Seen by Provider: 10/29/21 02:25 Source: patient Mode of arrival: ambulatory Limitations: no limitations History of Present Illness: 21-year-old female 21-year-old female who states the last 2 to 3 hours has had multiple episodes of nausea and vomiting. She states she been trying to drink p.o. fluids and has not been able to tolerate any water and is vomited up immediately she states she is at work and after vomiting she felt very lightheaded and fell and hit her head she states since then she has had a headache she did posterior head with a posterior headache she denies any chest pain she has some mild abdominal cramping especially with vomiting denies any dysuria denies any fevers. Associated nausea: Yes Associated symtoms: Reports fatigue, headache(s) and nausea; Denies chest pain or dysuria Review of Systems Const: Reports: fatigue Eyes: Denies: blurry vision or eye discomfort ENMT: Denies: throat pain or dental pain Card: Denies: chest pain Resp: Denies: dyspnea GI: Reports: abdominal pain, nausea and vomiting : Denies: dysuria Musc: Denies: neck pain or back pain Skin/Breast: Denies: rash Neuro: Reports: headache(s) Psych: Denies: depression Luigi/Lymph: Denies: easy bruising All/Imm: Denies: urticaria PFS ED PFSH: Medical History Depression PTSD (post-traumatic stress disorder) Surgical History No pertinent past surgical history Female Reproductive History: Date of last menstrual period: 11/23/20 Physical Exam Const: COMMON NORMALS: no acute distress, patient oriented x3 and healthy appearing HENMT: COMMON NORMALS: normocephalic and atraumatic HEAD & SCALP: normoceph alic and atraumatic Eye: COMMON NORMALS: Equal, round and reactive pupils present and EOMs intact bilaterally PUPIL: Yes Equal, round and reactive pupils present Neck/C-Spine: COMMON NORMALS: full ROM and supple Chest: COMMONS NORMALS: normal inspection of the chest and normal palpation of entire chest wall Resp: COMMON NORMALS: normal respiratory effort, No retractions, No use of accessory muscles and clear to auscultation bilaterally AUSCULTATION: clear to auscultation bilaterally Cardio: COMMON NORMALS: regular rate, regular rhythm and No murmurs present (Cardio) RATE: regular rate RHYTHM: regular rhythm GI: COMMON NORMALS: Normal to inspection, nondistended, normoactive bowel sounds present, Soft to palpation, non-tender and no masses PALPATION: Yes Soft to palpation Extremity: COMMON NORMALS: normal to inspection and full ROM Neuro: COMMON NORMALS: patient oriented x3, moves all extremities and no focal motor deficits Psych: COMMON NORMALS: mental status grossly normal, Normal thought process present and cooperative THOUGHT PROCESS: Normal thought process present Skin: COMMON NORMALS: no rashes or lesions noted and no wounds GENERAL SKIN EXAM: no rashes or lesions noted Course Vital Signs: Vital signs: Vital Signs Temperature 97.9 F 10/29/21 02:23 Pulse Rate 70 10/29/21 02:23 Respiratory Rate 18 10/29/21 02:23 Blood Pressure 144/104 10/29/21 02:23 Pulse Oximetry 95 10/29/21 02:23 MDM - Nausea/Vomiting/Diarrhea Medical Decision Making Patient presents with nausea vomiting that improved here with Zofran she is able to tolerate p.o. patient's blood work shows no signs of anemia or dehydration her head CT here is normal she is able ambulate without any difficulty we will prescribe her Zofran she is stable for discharge return if worsening she understands agrees to plan. Lab Data : 10/29/21 03:56 10/29/21 03:[address] 10/29/21 02:29 IMPRESSION: 1. No acute intracranial hemorrhage or mass effect. 2. No definite acute infarct by CT, see above. 3. Other findings discussed above. Laboratory Results WBC 7.4 10^3/uL (4.0-10.0) 10/29/21 03:56 Corrected WBC Cancelled 10/29/21 03:00 RBC 5.78 10^6/uL (4.1-5.3) H 10/29/21 03:56 Hgb 16.7 g/dL (11.5-15.3) H 10/29/21 03:56 Hct 51.5 % (37.0-47.0) H 10/29/21 03:56 MCV 89.1 fl (81-99) 10/29/21 03:56 MCH 28.9 pg (28.0-34.0) 10/29/21 03:56 MCHC 32.4 g/dL (30.0-36.0) 10/29/21 03:56 RDW 13.6 % (12.1-15.1) 10/29/21 03:56 Plt Count 355 10^3/cmm (130-400) 10/29/21 03:56 MPV 9.3 fL (7.4-10.4) 10/29/21 03:56 Gran % Cancelled 10/29/21 03:00 Neut % (Auto) 65.7 % 10/29/21 03:56 Lymph % (Auto) 25.1 % 10/29/21 03:56 Young % (Auto) 7.5 % 10/29/21 03:56 Eos % (Auto) 1.0 % 10/29/21 03:56 Baso % (Auto) 0.4 % 10/29/21 03:56 Neut # (Auto) 4.84 10^3/uL (1.8-7.7) 10/29/21 03:56 Lymph # (Auto) 1.9 10^3/uL (0.8-4.8) 10/29/21 03:56 Young # (Auto) 0.6 10^3/uL (0.2-0.9) 10/29/21 03:56 Eos # (Auto) 0.1 10^3/uL (0.0-0.8) 10/29/21 03:56 Baso # (Auto) 0.0 10^3/uL (0.0-0.1) 10/29/21 03:56 Absolute Gran (auto) Cancelled 10/29/21 03:00 Nucleated RBC % (auto) 0 % 10/29/21 03:56 Nucleated RBCs # 0.0 /100WBC 10/29/21 03:56 Sodium 141 mmol/L (136-145) 10/29/21 03:56 Potassium 3.9 mmol/L (3.5-5.1) 10/29/21 03:56 Chloride 106 mmol/L (98-107) 10/29/21 03:56 Carbon Dioxide 22 mmol/L (22-29) 10/29/21 03:56 Anion Gap 16.9 (5-19) 10/29/21 03:56 BUN 6 mg/dL (6-20) 10/29/21 03:56 Creatinine 0.5 mg/dL (0.5-0.9) 10/29/21 03:56 GFR Calculation 155.7 mL/min (90-130) H 10/29/21 03:56 Glucose 95 mg/dL (65-115) 10/29/21 03:56 Calculated Osmolality 289 mOsm/kg (285-295) 10/29/21 03:56 Calcium 8.6 mg/dL (8.5-10.5) 10/29/21 03:56 Total Bilirubin 0.3 mg/dL (0.15-1.2) 10/29/21 03:56 AST 26 U/L (0-32) 10/29/21 03:56 ALT 28 U/L (0-33) 10/29/21 03:56 Alkaline Phosphatase 66 IU/L (35-105) 10/29/21 03:56 Total Protein 7.3 g/dL (6.6-8.7) 10/29/21 03:56 Albumin 3.8 g/dL (3.5-5.2) 10/29/21 03:56 Globulin 3.5 g/dL (1.3-4.6) 10/29/21 03:56 Lipase 14 U/L (13-60) 10/29/21 03:56 HCG, Qual Negative (Negative) 10/29/21 03:00 Discharge Plan Discharge Patient Disposition: Home Clinical Impression: Vomiting Qualifiers: Vomiting type: unspecified Nausea presence: with nausea Qualified Code(s): R11.2 - Nausea with vomiting, unspecified CHI (closed head injury) Qualifiers: Encounter type: initial encounter Qualified Code(s): S09.90XA - Unspecified injury of head, initial encounter Condition: Stable Prescriptions: New ondansetron 4 mg tablet,disintegrating 4 mg PO Q6H PRN (Reason: nausea and vomiting) Qty: 14 0RF No Action Vistaril 50 mg capsule 50 mg PO Q8H PRN (Reason: acute anxiety) Qty: 30 0RF trazodone 50 mg Tablet 50 mg PO BEDTIME 30 Days Qty: 30 1RF citalopram 20 mg Tablet 20 mg PO DAILY 30 Days Qty: 30 1RF propranolol 20 mg Tablet 20 mg PO TID 30 Days Qty: 90 1RF Lamictal 100 mg tablet 100 mg PO DAILY Qty: 30 1RF Rx Instructions: Start after 25 mg titration complete. Discharge Orders: Discharge ED (Routine); Ordered 10/29/21 Ordered By: Darryl Cook Discharge Diet: Advance as tolerated Discharge Activity: Resume usual activity Patient Instructions: Acute Nausea and Vomiting (ED) Coding Level of Care Code ED [facility] for Winsome Fwd Exam Comprehensive
[2021-10-29 03:00] VITALS: BP 114/83; PULSE 62; RESP 16; O2SAT 95
[2021-10-29] MEDS: sodium chloride 0.9% 1,000 ML 999 ML IV (03:06)
[2021-10-29] MEDS: ondansetron 2 mg/ML SDV 2 mL 4 MG IVP (03:07)
[2021-10-29 03:26] LABS: HCG, Serum Qual Negative (Negative)
[2021-10-29 04:00] VITALS: BP 110/72; PULSE 69; RESP 20; O2SAT 93
[2021-10-29 04:00] LABS: Basophils % 0.4 %; Eosinophils # 0.1 10^3/uL (0.0-0.8); Hematocrit 51.5 % (37.0-47.0); Hemoglobin 16.7 g/dL (11.5-15.3); Lymphocytes # 1.9 10^3/uL (0.8-4.8); Lymphocytes % 25.1 %; Mean Corpuscular HGB Conc 32.4 g/dL (30.0-36.0); Mean Corpuscular Hemoglobin 28.9 pg (28.0-34.0); Mean Corpuscular Volume 89.1 fl (81-99); Mean Platelet Volume 9.3 fL (7.4-10.4); Monocytes # 0.6 10^3/uL (0.2-0.9); Monocytes % 7.5 %; Neutrophils # 4.84 10^3/uL (1.8-7.7); Neutrophils % 65.7 %; Nucleated Red Blood Cells % 0 %; Platelet Count 355 10^3/cmm (130-400); Red Blood Count 5.78 10^6/uL (4.1-5.3); Red Cell Distribution Width 13.6 % (12.1-15.1); White Blood Count 7.4 10^3/uL (4.0-10.0)
[2021-10-29 04:18] LABS: Alanine Aminotransferase 28 U/L (0-33); Albumin Level 3.8 g/dL (3.5-5.2); Alkaline Phosphatase 66 IU/L (35-105); Blood Urea Nitrogen 6 mg/dL (6-20); Calcium 8.6 mg/dL (8.5-10.5); Carbon Dioxide 22 mmol/L (22-29); Chloride 106 mmol/L (98-107); Globulin 3.5 g/dL (1.3-4.6); Glomerular Filtration Rate 155.7 mL/min (90-130); Glucose 95 mg/dL (65-115); Lipase 14 U/L (13-60); Osmolality Calculated 289 mOsm/kg (285-295); Sodium 141 mmol/L (136-145); Total Bilirubin 0.3 mg/dL (0.15-1.2); Total Protein 7.3 g/dL (6.6-8.7)
[2021-10-29 04:20] LABS: Anion Gap 16.9 (5-19); Aspartate Amino Transferase 26 U/L (0-32); Potassium 3.9 mmol/L (3.5-5.1)
[2021-10-29 05:00] VITALS: BP 133/80; PULSE 64; RESP 16; O2SAT 96
[2021-10-29 06:08] LABS: Estmated Average Glucose 97
== END 2021-10-29 05:00 | disposition home or self-care (01) ==
PROVIDERS: Emergency Provider Emergency Medicine
DX: R11.2 Nausea with vomiting, unspecified (principal); S09.90XA Unspecified injury of head, initial encounter; W19.XXXA Unspecified fall, initial encounter
CPT/HCPCS: 70450; 80053; 83036; 83690; 84703; 85025; 96361; 96374; 99284; J2405; J7030

== ENCOUNTER 2021-12-26 14:42 | Emergency (ER) | payer SELFPAY ==
[2021-12-26 15:36] VITALS: BP 136/85; PULSE 98; RESP 14; TEMP 36.8; O2SAT 98; BMI 34.4
[2021-12-26 17:42] LABS: HCG Qualitative Urine. Negative (Negative)
[2021-12-26] MEDS: ketorolac 30 mg/mL INJ 15 MG IVP (18:16)
[2021-12-26] MEDS: ondansetron 2 mg/ML SDV 2 mL 4 MG IVP (18:16)
[2021-12-26] MEDS: diphenhydrAMINE 50 mg/mL SDV 1mL 25 MG IVP (18:18)
[2021-12-26] MEDS: dexamethasone 4 mg/mL INJ IVP (18:18)
[2021-12-26 18:45] LABS: Add Urine Microscopic? YES; Bilirubin Urine 1+ (Negative); Blood Urine Neg (Negative); Glucose Urine UA Norm (Normal); Ketones Urine Negative (Negative); Leukocyte Esterase Urine Trace (Negative); Nitrate Urine Negative (Negative); Protein Urine Neg (Negative); Urine Appearance SL Hazy (CLEAR); Urine Color Yellow (Yellow); Urobilinogen Urine 8 mg/dL (Negative); pH Urine 6 (5-7)
[2021-12-26 18:47] LABS: Bacteria Urine 1+ /hpf; Mucus Urine 2+ /hpf; WBC Urine 0-4 /hpf (0-5)
[2021-12-26 18:48] LABS: Add Urine Culture? No
--- NOTE | 2021-12-26 18:52 | W.ED.HA ---
HPI - Headache General: Chief Complaint: Headache Stated Complaint: Headache Time Seen by Provider: 12/26/21 16:08 History of Present Illness: 21 yo female patient presents with typical migraine headache. Pt states it started today after riding in a hot car with no AC. Pt c/o nausea with no vomiting. Pt denies any vision changes. Pt denies any other complaints. Associated symptoms: Deny chest pain, confusion, diaphoresis, fever(s), lightheadedness, malaise, pre-syncope, rash, syncope or vomiting Review of Systems Const: Denies: fever(s), chills, body aches, change in appetite, change in weight, fatigue, malaise or diaphoresis Eyes: Denies: change in vision, blurry vision, blind spots, eye discomfort, eye discharge, eye redness, floaters or seeing flashes ENMT: Denies: throat pain, uvular edema, enlarged tonsils, odynophagia, hoarseness, mouth pain, swelling of lips/tongue, oral sores, bleeding gums, dental pain, dry mouth, ear or mastoid pain, ear discharge, change in hearing, tinnitus, disequilibrium, nasal discharge, nasal congestion, post nasal drip or sinus pain Card: Denies: chest pain, palpitations, irregular heart rhythm, edema, swelling of feet/ankles, lightheadedness, syncope, pre-syncope, dyspnea on exertion, orthopnea, leg pain with exertion or acrocyanosis Resp: Denies: dyspnea, productive cough, non-productive cough, wheezing, stridor, pain on inspiration, change in phlegm color, hemoptysis or chest congestion GI: Denies: abdominal pain, vomiting, hematemesis, dysphagia, diarrhea, constipation, GI cramping, change in bowel habits or rectal pain : Denies: flank pain, difficulty voiding, dysuria, urinary frequency, urinary urgency, urinary hesitancy or hematuria Musc: Denies: neck pain, back pain, extremity pain, extremity swelling, joint pain, joint swelling, joint redness, joint warmth or deformity Skin/Breast: Denies: rash, pruritus, erythema, sores, new lesions, changes in skin color or dry skin Neuro: Denies: numbness in extremities, weakness in extremities, sensory changes, lack of coordination, difficulty walking, frequent falls, dizziness, vertigo, confusion, behavioral changes, Slurred speech present, difficulty communicating thoughts or seizure-like activity Psych: Denies: anxiety, depression, suicidal ideation or homicidal ideation Endo: Denies: polyuria, polydipsia, tired all the time, cold intolerance, excessive sweating, flushing, hot flashes or heat intolerance Luigi/Lymph: Denies: easy bruising, easy bleeding, petechiae, purpura, enlarged lymph nodes or tender lymph nodes All/Imm: Denies: urticaria, throat swelling, tongue swelling, facial swelling, acute wheezing or itchy eyes PFSH ED PFSH: Medical History Depression PTSD (post-traumatic stress disorder) Surgical History No pertinent past surgical history Female Reproductive History: Date of last menstrual period: 11/23/20 Physical Exam Const: COMMON NORMALS: no acute distress, patient oriented x3, healthy appearing, alert and well nourished GENERAL APPEARANCE: cooperative, comfortable, well kempt and well developed; not ill appearing ORIENTATION/CONSCIOUSNESS: Yes awake, Yes oriented to person, Yes oriented to place and Yes oriented to time HENMT: COMMON NORMALS: normocephalic, atraumatic, hearing grossly normal bilaterally, external ears normal, EAC's normal, TM's normal bilaterally, Normal external nose present, Normal nasal mucous membranes and turbinates present and moist oral mucous membranes HEAD & SCALP: normal to inspection, normocephalic and atraumatic FACE & SINUS: normal facial exam, sinuses nontender and face symmetric NOSE: Normal external nose present, Normal nares present, Normal nasal mucous membranes and turbinates present, No nasal discharge present and Abnormal external nose present EXTERNAL EAR: Yes external ears normal and Yes mastoids normal EXTERNAL AUDITORY CANAL: EAC's normal TYMPANIC MEMBRANE: TM's normal bilaterally MOUTH: Normal oral and palatal mucosa present, lip normal, tongue normal and Normal salivary glands and ducts present THROAT: no uvular edema Eye: COMMON NORMALS: Equal, round and reactive pupils present, EOMs intact bilaterally, conjunctivae normal and no scleral icterus GENERAL EYE: appearance normal, both eyes and all related structures EYELID: eyelids normal CONJUNCTIVA: Yes conjunctivae normal SCLERA: sclerae normal CORNEA: Yes corneas normal PUPIL: Yes Equal, round and reactive pupils present Neck/C-Spine: COMMON NORMALS: full ROM, no lymphadenopathy, supple, no meningeal signs, no JVD and Thyroid normal GENERAL: Yes normal visual inspection and Yes trachea midline THYROID: Thyroid normal CERVICAL SPINE: Yes cervical ROM normal Lymph: LYMPHATIC: no lymphadenopathy noted and no lymphedema noted Chest: COMMONS NORMALS: normal inspection of the chest and normal palpation of entire chest wall Resp: COMMON NORMALS: normal respiratory effort, No retractions, No use of accessory muscles and clear to auscultation bilaterally EFFORT & INSPECTION: Yes able to speak in complete sentences and Yes symmetric chest movement AUSCULTATION: clear to auscultation bilaterally Cardio: COMMON NORMALS: no JVD, regular rate and regular rhythm RATE: regular rate RHYTHM: regular rhythm GI: COMMON NORMALS: Normal to inspection, nondistended, normoactive bowel sounds present, Soft to palpation, non-tender, No hepatosplenomegaly present, no masses and no bruits INSPECTION: Yes normal to inspection AUSCULTATION: Yes normoactive bowel sounds PALPATION: Yes Soft to palpation and Yes No hepatosplenomegaly present PERCUSSION: normal to percussion RECTAL EXAM: deferred : COMMON NORMALS: Yes no CVA tenderness, Yes normal external appearance, Yes normal appearance of the vagina, Yes normal appearance of the cervix, Yes normal bimanual exam, Yes No adnexal tenderness and Yes no masses BLADDER/KIDNEY EXAM: Yes no CVA tenderness BIMANUAL EXAM - VAGINA & UTERUS: Yes normal bimanual exam Back/Pelvis: COMMON NORMALS: no CVA tenderness, thoracic and lumbar spine normal to inspection, no thoracic nor lumbar tenderness, thoraco-lumbar ROM normal and straight leg raise negative bilaterally THORACIC SPINE/UPPER BACK: Yes normal to inspection LUMBAR SPINE/LOWER BACK: Yes normal to inspection Extremity: COMMON NORMALS: normal to inspection, full ROM and capillary refill normal GENERAL: Yes normal exam except as noted Neuro: COMMON NORMALS: patient oriented x3, CN's II-XII intact bilaterally, moves all extremities, no focal motor deficits, no sensory deficits noted and gait normal SENSORIUM/ORIENTATION: Yes alert, Yes oriented to person, Yes oriented to place and Yes oriented to time MENINGEAL SIGNS: Yes no meningeal signs CRANIAL NERVES: Yes CN normal except as noted SPEECH: speech normal GAIT: Yes Normal gait present SENSORY EXAM: Yes extremities MOTOR EXAM: 5/5 motor strength present throughout Psych: COMMON NORMALS: mental status grossly normal, Normal thought process present, cooperative, normal affect, speech normal, activity/motor behavior normal, denies hallucinations, denies homicidal ideation and denies suicidal ideation APPEARANCE: Yes grossly normal and Yes well kempt ATTITUDE: Yes calm ACTIVITY/MOTOR BEHAVIOR: Yes appropriate eye contact SPEECH: Yes normal speech THOUGHT PROCESS: Normal thought process present THOUGHT CONTENT: Yes Normal thought content present ATTENTION/CONCENTRATION: Yes attention grossly intact MEMORY/COGNITION: Yes memory grossly intact INSIGHT: Good insight present (Psych) JUDGEMENT: Good judgement present (Psych) Skin: COMMON NORMALS: no rashes or lesions noted, no wounds, turgor normal, no jaundice, no petechiae and no mottling GENERAL SKIN EXAM: no rashes or lesions noted and turgor normal Course Vital Signs: Vital signs: Vital Signs Temperature 98.3 F 12/26/21 15:36 Pulse Rate 98 12/26/21 15:36 Respiratory Rate 14 12/26/21 15:36 Blood Pressure 136/85 12/26/21 15:36 Pulse Oximetry 98 12/26/21 15:36 MDM - Headache Medical Decision Making Patient is well appearing non toxic and in no acute distress.21 yo female patient presents with typical migraine headache. Pt states it started today after riding in a hot car with no AC. Pt c/o nausea with no vomiting. Pt denies any vision changes. Pt denies any other complaints. Pt has no red flag symptoms and has no focal neurological deficits noted. Pt had clinical improvement after 1 liter NS, Decadron, toradol, zofran and benadryl. Pt is requesting to go home at this time. Pt is medically stable for discharge Differential Diagnosis Likely migraine, tension headache, subarachnoid hemorrhage, headache, meningitis, sinusitis and postconcussion syndrome Lab Data Laboratory Results HCG, Qual Negative (Negative) 12/26/21 17:31 Urine Color Yellow (Yellow) 12/26/21 17:31 Urine Appearance Sl hazy (CLEAR) 12/26/21 17:31 Urine pH 6 (5-7) 12/26/21 17:31 Ur Specific [place] 1.020 (1.005-1.030) 12/26/21 17:31 Urine Protein Neg (Negative) 12/26/21 17:31 Urine Glucose (UA) Norm (Normal) 12/26/21 17:31 Urine Ketones Negative (Negative) 12/26/21 17:31 Urine Blood Neg (Negative) 12/26/21 17:31 Urine Nitrate Negative (Negative) 12/26/21 17:31 Urine Bilirubin 1+ (Negative) H 12/26/21 17:31 Urine Urobilinogen 8 mg/dL (Negative) H 12/26/21 17:31 Ur Leukocyte Esterase Trace (Negative) H 12/26/21 17:31 Urine RBC None /hpf (0-2) 12/26/21 17:31 Urine WBC 0-4 /hpf (0-5) H 12/26/21 17:31 Ur Squamous Epith Cells 10-15 /hpf (0-5) H 12/26/21 17:31 Amorphous Sediment Not Reportable 12/26/21 17:31 Urine Bacteria 1+ /hpf (NONE) H 12/26/21 17:31 Urine Mucus 2+ /hpf 12/26/21 17:31 Discharge Plan Discharge Patient Disposition: Home Clinical Impression: Migraine Condition: Stable Prescriptions: No Action Vistaril 50 mg capsule 50 mg PO Q8H PRN (Reason: acute anxiety) Qty: 30 0RF trazodone 50 mg Tablet 50 mg PO BEDTIME 30 Days Qty: 30 1RF citalopram 20 mg Tablet 20 mg PO DAILY 30 Days Qty: 30 1RF propranolol 20 mg Tablet 20 mg PO TID 30 Days Qty: 90 1RF Lamictal 100 mg tablet 100 mg PO DAILY Qty: 30 1RF Rx Instructions: Start after 25 mg titration complete. ondansetron 4 mg tablet,disintegrating 4 mg PO Q6H PRN (Reason: nausea and vomiting) Qty: 14 0RF Discharge Orders: Discharge ED (Routine); Ordered 12/26/21 Ordered By: Trina Wiggins Discharge Diet: Advance as tolerated Discharge Activity: Increase activity as tolerated Patient Instructions: Opioid Safety Activity Restrictions/Additional Instructions: Please return to ER with any fever, worsening nof pain, or any other concerning findings Stand Alone Forms: Work/School Release Coding Level of Care Code ED Day Camp Counselor for Winsome Muñoz
== END 2021-12-26 19:50 | disposition home or self-care (01) ==
PROVIDERS: Emergency Provider Registered Nurse
DX: G43.909 Migraine, unspecified, not intractable, without status migrainosus (principal)
CPT/HCPCS: 81001; 81025; 96374; 96375; 99284; J1100; J1200; J1885; J2405

== ENCOUNTER 2022-04-08 17:06 | Emergency (ER) | payer SELFPAY ==
[2022-04-08 17:09] VITALS: BP 128/82; PULSE 94; RESP 16; TEMP 36.8; O2SAT 98; BMI 34.4
--- NOTE | 2022-04-08 17:43 | W.ED.HA ---
HPI - Headache General: Chief Complaint: Headache Stated Complaint: headache for two days Time Seen by Provider: 04/08/22 17:40 Source: patient Mode of arrival: ambulatory Limitations: no limitations History of Present Illness: 21 yo female that states she has had a headache over the last 2 days. She states that she has a hx of migraines and this is similar. it began gradually and has worsened over the last 2 days. Headache is currently a 8/10. Has had photophobia and phonophobia. Denies vomiting and has had nausea. Denies fever, denies this being worse headache of her life. Associated symptoms: Deny chest pain, fever(s), nausea, rash or vomiting Review of Systems Const: Denies: fever(s), chills, body aches or change in appetite Eyes: Denies: blurry vision or eye discomfort ENMT: Denies: throat pain or dental pain Card: Denies: chest pain Resp: Denies: dyspnea GI: Denies: abdominal pain, nausea, vomiting or diarrhea : Denies: dysuria Musc: Denies: neck pain or back pain Skin/Breast: Denies: rash Neuro: Reports: headache(s) Psych: Denies: depression Luigi/Lymph: Denies: easy bruising All/Imm: Denies: urticaria PFSH ED PFSH: Medical History Depression PTSD (post-traumatic stress disorder) Surgical History No pertinent past surgical history Female Reproductive History: Date of last menstrual period: 04/05/22 Physical Exam Const: COMMON NORMALS: no acute distress, patient oriented x3 and healthy appearing HENMT: COMMON NORMALS: normocephalic and atraumatic HEAD & SCALP: normocephalic and atraumatic Eye: COMMON NORMALS: Equal, round and reactive pupils present and EOMs intact bilaterally PUPIL: Yes Equal, round and reactive pupils present Neck/C-Spine: COMMON NORMALS: full ROM and supple Chest: COMMONS NORMALS: normal inspection of the chest and normal palpation of entire chest wall Resp: COMMON NORMALS: normal respiratory effort, No retractions, No use of accessory muscles and clear to auscultation bilaterally AUSCULTATION: clear to auscultation bilaterally Cardio: COMMON NORMALS: regular rate, regular rhythm and No murmurs present (Cardio) RATE: regular rate RHYTHM: regular rhythm GI: COMMON NORMALS: Normal to inspection, nondistended, normoactive bowel sounds present, Soft to palpation, non-tender and no masses PALPATION: Yes Soft to palpation Extremity: COMMON NORMALS: normal to inspection and full ROM Neuro: COMMON NORMALS: patient oriented x3, moves all extremities and no focal motor deficits Psych: COMMON NORMALS: mental status grossly normal, Normal thought process present and cooperative THOUGHT PROCESS: Normal thought process present Skin: COMMON NORMALS: no rashes or lesions noted and no wounds GENERAL SKIN EXAM: no rashes or lesions noted Course Vital Signs: Vital signs: Vital Signs Temperature 98.3 F 04/08/22 18:16 Pulse Rate 94 04/08/22 18:16 Respiratory Rate 16 04/08/22 18:16 Blood Pressure 128/82 04/08/22 18:16 Pulse Oximetry 98 04/08/22 18:16 Oxygen Delivery Me thod 04/08/22 18:16 MDM - Headache Medical Decision Making Patient presents here with headache likely migraine headache feels like her previous migraines she is well-appearing here no signs of meningitis or subarachnoid hemorrhage she stable for discharge she is followed her PCP and return if worsening. Discharge Plan Discharge Patient Disposition: Home Clinical Impression: Migraine Condition: Stable Prescriptions: No Action Vistaril 50 mg capsule 50 mg PO Q8H PRN (Reason: acute anxiety) Qty: 30 0RF trazodone 50 mg Tablet 50 mg PO BEDTIME 30 Days Qty: 30 1RF citalopram 20 mg Tablet 20 mg PO DAILY 30 Days Qty: 30 1RF propranolol 20 mg Tablet 20 mg PO TID 30 Days Qty: 90 1RF Lamictal 100 mg tablet 100 mg PO DAILY Qty: 30 1RF Rx Instructions: Start after 25 mg titration complete. ondansetron 4 mg tablet,disintegrating 4 mg PO Q6H PRN (Reason: nausea and vomiting) Qty: 14 0RF Discharge Orders: Discharge ED (Routine); Ordered 04/08/22 Ordered By: Darryl Cook Discharge Diet: Advance as tolerated Discharge Activity: Resume usual activity Patient Instructions: Migraine Headache (ED) Coding Level of Care Code ED Falsework Builder for Chg Fwd Exam Comprehensive
[2022-04-08] MEDS: metoclopramide 5 mg/mL SDV 2 mL 10 MG IVP (18:01)
[2022-04-08] MEDS: diphenhydrAMINE 50 mg/mL SDV 1mL IVP (18:01)
[2022-04-08] MEDS: ketorolac 30 mg/mL INJ 15 MG IVP (18:01)
[2022-04-08 18:16] VITALS: BP 128/82; PULSE 94; RESP 16; TEMP 36.8; O2SAT 98
[2022-04-08 18:56] VITALS: BP 128/82; PULSE 94; RESP 16; TEMP 36.8; O2SAT 98
== END 2022-04-08 18:59 | disposition home or self-care (01) ==
PROVIDERS: Emergency Provider Emergency Medicine
DX: G43.909 Migraine, unspecified, not intractable, without status migrainosus (principal)
CPT/HCPCS: 96374; 96375; 99284; J1200; J1885; J2765

== ENCOUNTER 2022-10-05 10:54 | Emergency (ER) | payer SELFPAY ==
[2022-10-05 11:08] VITALS: BP 125/80; PULSE 60; RESP 18; TEMP 36.5; O2SAT 98
[2022-10-05 11:52] LABS: Basophils # 0.1 10^3/uL (0.0-0.1); Basophils % 0.8 %; Eosinophils # 0.4 10^3/uL (0.0-0.8); Eosinophils % 6.3 %; Hematocrit 49.2 % (37.0-47.0); Hemoglobin 15.7 g/dL (11.5-15.3); Lymphocytes # 1.9 10^3/uL (0.8-4.8); Lymphocytes % 29.8 %; Mean Corpuscular HGB Conc 31.9 g/dL (30.0-36.0); Mean Corpuscular Hemoglobin 29.3 pg (28.0-34.0); Mean Corpuscular Volume 91.8 fl (81-99); Mean Platelet Volume 9.8 fL (7.4-10.4); Monocytes # 0.5 10^3/uL (0.2-0.9); Monocytes % 7.8 %; Neutrophils # 3.47 10^3/uL (1.8-7.7); Neutrophils % 55.1 %; Nucleated Red Blood Cells % 0 %; Platelet Count 416 10^3/cmm (130-400); Red Blood Count 5.36 10^6/uL (4.1-5.3); Red Cell Distribution Width 13.2 % (12.1-15.1); White Blood Count 6.3 10^3/uL (4.0-10.0)
[2022-10-05 12:10] LABS: HCG, Serum Qual Negative (Negative)
[2022-10-05 12:16] LABS: Alanine Aminotransferase 12 U/L (0-33); Albumin Level 4.1 g/dL (3.5-5.2); Alkaline Phosphatase 59 U/L (35-105); Anion Gap 13.8 (5-19); Aspartate Amino Transferase 13 U/L (0-32); Blood Urea Nitrogen 4 mg/dL (6-20); Calcium 9.6 mg/dL (8.5-10.5); Carbon Dioxide 28 mmol/L (22-29); Chloride 104 mmol/L (98-107); Globulin 3.1 g/dL (1.3-4.6); Glucose 91 mg/dL (65-115); Osmolality Calculated 288 mOsm/kg (285-295); Potassium 4.8 mmol/L (3.5-5.1); Sodium 141 mmol/L (136-145); Total Bilirubin 0.2 mg/dL (0.15-1.2); Total Protein 7.2 g/dL (6.6-8.7)
--- NOTE | 2022-10-05 14:11 | ED_ITS ---
HPI - Headache General: Chief Complaint: Headache Stated Complaint: headache Time Seen by Provider: 10/05/22 13:43 Source: patient Mode of arrival: ambulatory Limitations: no limitations History of Present Illness: Patient is a 22-year-old female presents to ED today with a complaint of a migraine headache. Patient states she suffered from migraine headaches for many years and feels like her headache today is identical to previous migraines. She states she has had to come to the ED previously for headaches and feels like typical migraine cocktails usually work for her. She states she was on pr ophylactic and abortive medication therapies for her headaches but lost her insurance and has not been on these medications in many years. MD elicited complaint: migraine Pertinent past history: migraines Onset (ago): day(s) Onset description: gradually Severity: moderate Pain scale (0-10): 7 Exacerbating factors: none Relieving factors: nothing Associated symptoms: Reports no associated symptoms; Deny chest pain, fever(s), malaise, nausea, rash or vomiting Treatments prior to arrival: none Review of Systems Const: Denies: fever(s), chills, body aches, fatigue or malaise Eyes: Denies: change in vision or blurry vision Card: Denies: chest pain Resp: Denies: dyspnea GI: Denies: abdominal pain, nausea or vomiting Musc: Denies: neck pain, back pain, extremity pain or joint pain Skin/Breast: Denies: rash Neuro: Reports: headache(s); Denies: numbness in extremities, weakness in extremities, sensory changes or dizziness [facility] ED PFSH: Medical History Depression PTSD (post-traumatic stress disorder) Surgical History No pertinent past surgical history Physical Exam Const: COMMON NORMALS: no acute distress, average body habitus, patient oriented x3, no limitations, healthy appearing, alert and well nourished ORIENTATION/CONSCIOUSNESS: Yes awake, Yes oriented to person, Yes oriented to place and Yes oriented to time HENMT: COMMON NORMALS: normocephalic and atraumatic HEAD & SCALP: normal to inspection, normocephalic and atraumatic FACE & SINUS: normal facial exam Eye: GENERAL EYE: appearance normal, both eyes and all related structures Neck/C-Spine: COMMON NORMALS: full ROM, no lymphadenopathy and no meningeal signs Neuro: DIAN COMA SCALE: document GCS findings [place] coma scale eye opening: Spontaneous [place] coma scale verbal response: Orientated Dian coma scale motor response: Obey commands Dian coma scale total score: 15 COMMON NORMALS: patient oriented x3, CN's II-XII intact bilaterally, moves all extremities, no focal motor deficits, no sensory deficits noted and gait normal SENSORIUM/ORIENTATION: Yes alert, Yes oriented to person, Yes oriented to place and Yes oriented to time MENINGEAL SIGNS: Yes no meningeal signs Skin: COMMON NORMALS: no rashes or lesions noted GENERAL SKIN EXAM: no rashes or lesions noted Course Vital Signs: Vital signs: Vital Signs Temperature 97.7 F 10/05/22 11:08 Pulse Rate 60 10/05/22 11:08 Respiratory Rate 18 10/05/22 11:08 Blood Pressure 125/80 10/05/22 11:08 Pulse Oximetry 98 10/05/22 11:08 Oxygen Delivery Me thod Room Air 10/05/22 11:08 MDM - Headache Medical Decision Making SAMANIEGO trending downward. Patient states she feels comfortable going home at this time. She has received financial secretary paperwork from registration. Will place referral with case management to get her set up with a primary care provider. Lab Data 10/05/22 11:30 10/05/22 11:30 Laboratory Results WBC 6.3 10^3/uL (4.0-10.0) 10/05/22 11:30 RBC 5.36 10^6/uL (4.1-5.3) H 10/05/22 11:30 Hgb 15.7 g/dL (11.5-15.3) H 10/05/22 11:30 Hct 49.2 % (37.0-47.0) H 10/05/22 11:30 MCV 91.8 fl (81-99) 10/05/22 11:30 MCH 29.3 pg (28.0-34.0) 10/05/22 11:30 MCHC 31.9 g/dL (30.0-36.0) 10/05/22 11:30 RDW 13.2 % (12.1-15.1) 10/05/22 11:30 Plt Count 416 10^3/cmm (130-400) H 10/05/22 11:30 MPV 9.8 fL (7.4-10.4) 10/05/22 11:30 Neut % (Auto) 55.1 % 10/05/22 11:30 Lymph % (Auto) 29.8 % 10/05/22 11:30 [place] % (Auto) 7.8 % 10/05/22 11:30 Eos % (Auto) 6.3 % 10/05/22 11:30 Baso % (Auto) 0.8 % 10/05/22 11:30 Neut # (Auto) 3.47 10^3/uL (1.8-7.7) 10/05/22 11:30 Lymph # (Auto) 1.9 10^3/uL (0.8-4.8) 10/05/22 11:30 [place] # (Auto) 0.5 10^3/uL (0.2-0.9) 10/05/22 11:30 Eos # (Auto) 0.4 10^3/uL (0.0-0.8) 10/05/22 11:30 Baso # (Auto) 0.1 10^3/uL (0.0-0.1) 10/05/22 11:30 Nucleated RBC % (auto) 0 % 10/05/22 11:30 Nucleated RBCs # 0.0 /100WBC 10/05/22 11:30 Sodium 141 mmol/L (136-145) 10/05/22 11:30 Potassium 4.8 mmol/L (3.5-5.1) 10/05/22 11:30 Chloride 104 mmol/L (98-107) 10/05/22 11:30 Carbon Dioxide 28 mmol/L (22-29) 10/05/22 11:30 Anion Gap 13.8 (5-19) 10/05/22 11:30 BUN 4 mg/dL (6-20) L 10/05/22 11:30 Creatinine 0.6 mg/dL (0.5-0.9) 10/05/22 11:30 GFR Calculation 125.0 mL/min (90-130) 10/05/22 11:30 Glucose 91 mg/dL (65-115) 10/05/22 11:30 Calculated Osmolality 288 mOsm/kg (285-295) 10/05/22 11:30 Calcium 9.6 mg/dL (8.5-10.5) 10/05/22 11:30 Total Bilirubin 0.2 mg/dL (0.15-1.2) 10/05/22 11:30 AST 13 U/L (0-32) 10/05/22 11:30 ALT 12 U/L (0-33) 10/05/22 11:30 Alkaline Phosphatase 59 U/L (35-105) 10/05/22 11:30 Total Protein 7.2 g/dL (6.6-8.7) 10/05/22 11:30 Albumin 4.1 g/dL (3.5-5.2) 10/05/22 11:30 Globulin 3.1 g/dL (1.3-4.6) 10/05/22 11:30 HCG, Qual Negative (Negative) 10/05/22 11:30 Discharge Plan Discharge Patient Disposition: Home Clinical Impression: Migraine Qualifiers: Migraine type: unspecified Status migrainosus presence: without status migrainosus Intractability: not intractable Qualified Code(s): G43.909 - Migraine, unspecified, not intractable, without status migrainosus Condition: Stable Prescriptions: No Action No Known Home Medications Discharge Orders: Discharge ED (Routine); Ordered 10/05/22 Ordered By: Selina Roberson Patient Instructions: Headache - Migraine (Adult) Coding Level of Care Code ED Cad Draftsman for Winsome Muñoz
[2022-10-05] MEDS: sodium chloride 0.9% 1,000 ML 999 ML IV (15:11)
[2022-10-05] MEDS: ketorolac 60 mg/2 mL INJ 30 MG IVP (15:11)
[2022-10-05] MEDS: ondansetron 2 mg/ML SDV 2 mL 4 MG IVP (15:11)
[2022-10-05] MEDS: dexamethasone 10 mg/mL INJ 8 MG IV (15:11)
[2022-10-05] MEDS: diphenhydrAMINE 50 mg/mL SDV 1mL IVP (15:12)
--- NOTE | 2022-10-06 08:26 | DCPLANNER ---
feed manager had message to speak with patient about getting established with a primary care physician. feed manager called patient, no answer and unable to leave a voicemail. Recording stated that the line was placed out of service.
== END 2022-10-05 16:12 | disposition home or self-care (01) ==
PROVIDERS: Family Medicine; Emergency Provider Physician Assistant
DX: G43.909 Migraine, unspecified, not intractable, without status migrainosus (principal)
CPT/HCPCS: 36415; 80053; 84703; 85025; 96361; 96374; 96375; 99284; J1100; J1200; J1885; J2405; J7030

== ENCOUNTER 2022-11-18 02:46 | Emergency (ER) | payer SELFPAY ==
[2022-11-18 02:55] VITALS: BP 133/91; PULSE 97; RESP 18; TEMP 36.8; O2SAT 96; BMI 37.9
--- NOTE | 2022-11-18 02:59 | W.ED.EXTPRO ---
HPI - Extremity Problem General: Chief complaint: Extremity Injury, Upper Stated complaint: Rt hand Injury Time Seen by Provider: 11/18/22 02:56 History of Present Illness: Patient presents to the ER with complaints of right hand pain. Patient punched a wall when now her hand dominantly on her third and fourth metacarpals are bruised swollen and painful. MD Complaint: extremity pain and extremity swelling Onset (ago): hour(s) (2 hours ago) Pain Consistency: constant Location: right (Hand) Quality: aching Radiation: none Relieving factors: nothing Exacerbating factors: range of motion Associated symptoms: Reports no associated symptoms Review of Systems General: Reports: 10 or more systems reviewed and unremarkable except in HPI and below PFSH ED PFSH: Medical History Depression PTSD (post-traumatic stress disorder) Surgical History No pertinent past surgical history Physical Exam Const: COMMON NORMALS: no acute distress, average body habitus, patient oriented x3, no limitations, healthy appearing, alert and well nourished HENMT: COMMON NORMALS: normocephalic, atraumatic, hearing grossly normal bilaterally, external ears normal and moist oral mucous membranes HEAD & SCALP: normocephalic and atraumatic EXTERNAL EAR: Yes external ears normal Neck/C-Spine: COMMON NORMALS: full ROM, no lymphadenopathy, supple, no meningeal signs, no JVD and Thyroid normal THYROID: Thyroid normal Chest: COMMONS NORMALS: normal inspection of the chest and normal palpation of entire chest wall Resp: COMMON NORMALS: normal respiratory effort, No retractions, No use of accessory muscles and clear to auscultation bilaterally AUSCULTATION: clear to auscultation bilaterally Cardio: COMMON NORMALS: no JVD, regular rate, regular rhythm, S1 normal heart sound present, S2 normal heart sound present, No gallops present (Cardio), No clicks present (Cardio), No murmurs present (Cardio) and No rub (Cardio) RATE: regular rate RHYTHM: regular rhythm HEART SOUNDS: S1 normal heart sound present and S2 normal heart sound present GI: COMMON NORMALS: Normal to inspection, nondistended, normoactive bowel sounds present, Soft to palpation, non-tender, No hepatosplenomegaly present and no masses PALPATION: Yes Soft to palpation and Yes No hepatosplenomegaly present Extremity: NARRATIVE EXTREMITY EXAM: Right hand third and fourth metacarpal carpal junction bruise swollen tender to palpation. Good range of motion patient is neurovascularly intact distal to the wound Neuro: COMMON NORMALS: patient oriented x3 SENSORIUM/ORIENTATION: Yes alert MENINGEAL SIGNS: Yes no meningeal signs Course Vital Signs: Vital signs: Vital Signs Temperature 98.2 F 11/18/22 02:55 Pulse Rate 97 11/18/22 02:55 Respiratory Rate 18 11/18/22 02:55 Blood Pressure 133/91 11/18/22 02:55 Pulse Oximetry 96 11/18/22 02:55 MDM - Extremity (Nontraumatic) Medical Decision Making Patient presents to the ER with complaints of hand pain secondary to punching wall. Physical exam was performed patient had x-rays of her right hand which preliminary report was negative. Awaiting final report by radiologist. Patient will be discharged home with diagnosis of contusion and can take [id number] pain medicine. Differential Diagnosis Unlikely herpes zoster, gout, cellulitis, superficial thrombophlebitis, deep venous thrombosis of upper extremity, lower extremity edema or deep vein thrombosis of lower extremity Medical Records I reviewed the patient's medical records. Lab Data I reviewed the patient's lab results. Discharge Plan Discharge Patient Disposition: Home Clinical Impression: Contusion of hand, right Qualifiers: Encounter type: initial encounter Qualified Code(s): S60.221A - Contusion of right hand, initial encounter Condition: Stable Prescriptions: No Action No Known Home Medications Discharge Orders: Discharge ED (Routine); Ordered 11/18/22 Ordered By: Manuel Burk Patient Instructions: Contusion, P.R.I.C.E. Treatment (ED) Activity Restrictions/Additional Instructions: Take [id number] Tylenol and Motrin as directed as needed for pain. Please follow-up with your family practice doctor in the next 7 to 10 days as needed for further evaluation and treatment. Coding Level of Care Code ED Real Estate Director for Winsome Muñoz
--- NOTE | 2022-11-18 03:04 | XRR_ITS ---
PROCEDURE INFORMATION: Exam: XR Right Hand Exam date and time: 11/18/2022 3:05 AM Age: 22 years old Clinical indication: Injury or trauma; Blunt trauma (contusions or hematomas); Right; Patient HX: Contusion to posterior aspect of hand at region of 3rd and 4th mcp joints from punching a wall. ; Additional info: Pain, trauma TECHNIQUE: Imaging protocol: Radiologic exam of the right hand. Views: 3 or more views. COMPARISON: No relevant prior studies available. FINDINGS: Bones/joints: No acute fracture or malalignment. Joint spaces are maintained. Soft tissues: Soft tissue swelling over the dorsal aspect of the metacarpal heads. XR/XR hand RT min 3V* [id number] IMPRESSION: No acute fracture or malalignment.
--- NOTE | 2022-11-19 12:52 | DCPLANNER ---
clinical operations manager had message to speak with patient about getting established with a primary care physician. clinical operations manager called patient, no answer and unable to leave a voicemail. Recording stated that the line was placed out of service.
== END 2022-11-18 04:40 | disposition home or self-care (01) ==
PROVIDERS: Emergency Provider Emergency Medicine
DX: S60.221A Contusion of right hand, initial encounter (principal); W22.09XA Striking against other stationary object, initial encounter
CPT/HCPCS: 73130; 99283

== ENCOUNTER 2023-01-08 16:28 | Emergency (ER) | payer SELFPAY ==
[2023-01-08 16:38] VITALS: BP 136/85; PULSE 75; RESP 14; TEMP 36.8; O2SAT 98
--- NOTE | 2023-01-08 16:46 | XRR_ITS ---
PROCEDURE INFORMATION: Exam: XR Left Knee Exam date and time: 01/08/2023 5:08 PM Age: 22 years old Clinical indication: Injury or trauma; Fall; Work related; Sprain or strain; Patella or knee; Left TECHNIQUE: Imaging protocol: Radiologic exam of the left knee. Views: 3 views. COMPARISON: No relevant prior studies available. FINDINGS: Bones/joints: The bones are intact. No fracture. Probable small knee effusion. Soft tissues: Normal. XR/XR knee LT 3V* [id number] IMPRESSION: 1. No acute skeletal findings. 2. Probable small knee effusion.
--- NOTE | 2023-01-08 17:05 | W.ED.EXTPRO ---
HPI - Extremity Problem General: Chief complaint: Extremity Injury, Lower Stated complaint: fall, knee pain Time Seen by Provider: 01/08/23 16:56 History of Present Illness: 22-year-old female comes in today with injury to the left knee. Patient reports about 2 weeks ago she was at work when she slipped causing her to fall and twist her knee in awkward position. Since then patient has had difficulty with ambulation and has ended up falling 3 times. Patient reports that her knee seems to lock up on her at times. Patient appears nontoxic. Patient appears in no pain at rest. Patient has been able to ambulate on the knee and has been using a knee support. Associated symptoms: Deny chest pain or fever(s) Review of Systems Const: Denies: fever(s) Card: Denies: chest pain Resp: Denies: dyspnea Musc: Reports: joint pain (right knee) [facility] ED PFSH: Medical History Depression PTSD (post-traumatic stress disorder) Surgical History No pertinent past surgical history Physical Exam Const: COMMON NORMALS: alert HENMT: COMMON NORMALS: normocephalic HEAD & SCALP: normocephalic Neck/C-Spine: COMMON NORMALS: full ROM Resp: COMMON NORMALS: normal respiratory effort Cardio: COMMON NORMALS: regular rate RATE: regular rate Extremity: LEFT LOWER EXTREMITY: Yes knee joint (Lateral joint tenderness, minimal swelling,) Left knee: Yes inspection, Yes palpation, Yes ROM and Yes other (Tenderness to femoral lateral condyle and tibial plateau lateral) Neuro: SENSORIUM/ORIENTATION: Yes alert Course Vital Signs: Vital signs: Vital Signs Temperature 98.2 F 01/08/23 16:38 Pulse Rate 75 01/08/23 16:38 Respiratory Rate 14 01/08/23 16:38 Blood Pressure 136/85 01/08/23 16:38 Pulse Oximetry 98 01/08/23 16:38 MDM - Extremity (Nontraumatic) Medical Decision Making 22-year-old female comes in today for injury to the left knee. On exam patient has lateral joint tenderness of the left knee. Normal range of motion. No obvious laxity is noted with maneuvers. Tenderness is noted on palpation of the lateral femoral condyle, and lateral tibial plateau. Differential diagnosis includes lateral collateral ligament sprain, meniscal injury, tibial plateau fracture, contusion. X-ray of the knee was unremarkable. Patient has possibly a small effusion that was noted on the x-ray. Recommend follow-up with orthopedics for further evaluation and treatment. Patient was started on naproxen recommend use acetaminophen otherwise for pain. Patient has a knee brace that she uses which will be okay for her to continue. Patient reported understanding of care plan and need for follow-up or return to the ER. Lab Data Radiology Impressions Knee X-Ray 01/08/23 16:46 IMPRESSION: 1. No acute skeletal findings. 2. Probable small knee effusion. Discharge Plan Discharge Patient Disposition: Home Clinical Impression: Acute internal derangement of knee Qualifiers: Laterality: left Qualified Code(s): M23.92 - Unspecified internal derangement of left knee Condition: Stable Prescriptions: New naproxen 500 mg tablet 500 mg PO BID Qty: 30 0RF Discharge Orders: Discharge ED (Routine); Ordered 01/08/23 Ordered By: Octavio Rush Discharge Diet: Usual diet Discharge Activity: Increase activity as tolerated Patient Instructions: Knee Pain (ED) Activity Restrictions/Additional Instructions: Use naproxen 500 mg twice a day for pain and inflammation. Use acetaminophen for further pain relief. Activity as tolerated. Follow-up with primary care for further instructions. Return to ED for new concerns. Case management will contact you regarding follow-up appointment with orthopedist. Coding Level of Care Code ED Substitute School Nurse for Winsome Muñoz
--- NOTE | 2023-01-10 09:04 | DCPLANNER ---
it service manager had message to schedule a follow up appointment for patient with ortho. it service manager sent patients information to the front office staff at ortho. Patients information will be printed and reviewed. Clinic will call patient with appointment information.
== END 2023-01-08 17:53 | disposition home or self-care (01) ==
PROVIDERS: Emergency Provider Nurse Practitioner Family
DX: M23.92 Unspecified internal derangement of left knee (principal)
CPT/HCPCS: 73562; 99283

== ENCOUNTER 2023-07-12 15:02 | Emergency (ER) | payer OTHER, SELFPAY ==
[2023-07-12 15:13] VITALS: BP 129/74; PULSE 80; RESP 16; TEMP 37; O2SAT 99; BMI 28.4
[2023-07-12 15:25] VITALS: BP 129/75; PULSE 71; RESP 19; O2SAT 97
--- NOTE | 2023-07-12 15:35 | W.ED.HA ---
HPI - Headache General: Chief Complaint: Headache Stated Complaint: headache Time Seen by Provider: 07/12/23 15:19 Source: patient Mode of arrival: ambulatory Limitations: no limitations History of Present Illness: 22-year-old female with a history of migraine she states that she had a migraine over the last week states it is waxed and waned and resolved for couple days and is returned last 2 days she states that the main pain is in her left eye she denies any blurry vision she has photophobia and phonophobia denies any fever denies any neck pain Associated symptoms: Reports nausea; Deny chest pain, fever(s) or vomiting Review of Systems Const: Denies: fever(s), chills, body aches or change in appetite Eyes: Denies: blurry vision or eye discomfort ENMT: Denies: throat pain or dental pain Card: Denies: chest pain Resp: Denies: dyspnea GI: Reports: nausea; Denies: abdominal pain or vomiting Musc: Denies: neck pain or back pain Neuro: Reports: headache(s) PFSH ED PFSH: Medical History Depression PTSD (post-traumatic stress disorder) Surgical History No pertinent past surgical history Physical Exam Const: COMMON NORMALS: no acute distress, patient oriented x3 and healthy appearing HENMT: COMMON NORMALS: normocephalic and atraumatic HEAD & SCALP: normocephalic and atraumatic Eye: COMMON NORMALS: Equal, round and reactive pupils present and EOMs intact bilaterally PUPIL: Yes Equal, round and reactive pupils present Neck/C-Spine: COMMON NORMALS: full ROM, supple and no meningeal signs Chest: COMMONS NORMALS: normal inspection of the chest Resp: COMMON NORMALS: normal respiratory effort Extremity: COMMON NORMALS: normal to inspection and full ROM Neuro: COMMON NORMALS: patient oriented x3, moves all extremities and no focal motor deficits MENINGEAL SIGNS: Yes no meningeal signs Psych: COMMON NORMALS: mental status grossly normal, Normal thought process present and cooperative THOUGHT PROCESS: Normal thought process present Skin: COMMON NORMALS: no rashes or lesions noted and no wounds GENERAL SKIN EXAM: no rashes or lesions noted Course Vital Signs: Vital signs: Vital Signs Temperature 98.6 F 02/06/24 15:13 Pulse Rate 71 07/12/23 15:25 Respiratory Rate 19 H 07/12/23 15:25 Blood Pressure 129/75 07/12/23 15:25 Pulse Oximetry 97 07/12/23 15:25 Oxygen Delivery Me thod Room Air 07/12/23 15:25 MDM - Headache Medical Decision Making Patient presents here with headache is likely migraine headache headache is resolved here after Reglan Benadryl and Toradol we will get her follow-up with her neurologist she has had chronic migraine she has no signs of subarachnoid hemorrhage or meningitis. Medical Records I reviewed the patient's medical records. No radiology studies performed this visit Discharge Plan Discharge Patient Disposition: Home Clinical Impression: Headache Condition: Stable Prescriptions: No Action prednisone 20 mg tablet 60 mg PO DAILY 5 Days Qty: 15 0RF methocarbamol 750 mg tablet 750 mg PO TID PRN (Reason: muscle spasm) Qty: 30 0RF ibuprofen 600 mg tablet 600 mg PO Q8H PRN (Reason: pain) Qty: 60 0RF Discharge Orders: Discharge ED (Routine); Ordered 07/12/23 Ordered By: Darryl Cook Referrals: Byron Castillo MD [Physician] - 4-7 days Discharge Diet: Advance as tolerated Discharge Activity: Resume usual activity Patient Instructions: Migraine Headache (ED) Stand Alone Forms: Work/School Release Coding Level of Care Code ED Finishing Machine Operator Automatic for Winsome Muñoz
[2023-07-12] MEDS: ketorolac 60 mg/2 mL INJ IM (15:37)
[2023-07-12] MEDS: diphenhydrAMINE 50 mg/mL SDV 1mL IM (15:38)
[2023-07-12] MEDS: metoclopramide 5 mg/mL SDV 2 mL 10 MG IM (15:39)
[2023-07-12 16:22] VITALS: BP 105/60; PULSE 66; O2SAT 98
--- NOTE | 2023-07-13 11:20 | DCPLANNER ---
message sent to neurology for follow up- migraine headaches
== END 2023-07-12 16:24 | disposition home or self-care (01) ==
PROVIDERS: Emergency Provider Emergency Medicine
DX: R51.9 Headache, unspecified (principal)
CPT/HCPCS: 96372; 99284; J1200; J1885; J2765

== ENCOUNTER 2023-07-14 18:24 | Emergency (ER) | payer OTHER, SELFPAY ==
--- NOTE | 2023-07-14 18:25 | XRR_ITS ---
PROCEDURE INFORMATION: Exam: XR Left Hand Exam date and time: 07/14/2023 6:42 PM Age: 22 years old Clinical indication: Injury or trauma; Fall; Swelling (edema); Hand; Left TECHNIQUE: Imaging protocol: Radiologic exam of the left hand. Views: 3 or more views. COMPARISON: No relevant prior studies available. FINDINGS: Bones/joints: Normal. Soft tissues: Normal. XR/XR hand LT min 3V* [id number] IMPRESSION: No acute findings.
[2023-07-14 18:26] VITALS: BP 116/74; PULSE 64; RESP 16; TEMP 36.3; O2SAT 99; BMI 28.4
--- NOTE | 2023-07-14 18:28 | W.ED.UPPEXIN ---
HPI - Extremity Injury (Upper) General: Chief Complaint: Extremity Injury, Upper Stated Complaint: Left Hand Injury Fall Time Seen by Provider: 07/14/23 18:28 History of Present Illness: Patient was at work and she slipped and fell catching herself with outstretched left hand. Patient has bruising to the palmar left hand along the second metacarpal. Patient is concerned she might have fractured her hand. Patient appears nontoxic. Patient appears no acute distress. Review of Systems General: Reports: 10 or more systems reviewed and unremarkable except in HPI and below Musc: Reports: extremity pain and extremity swelling ON LICENSE OF [facility] ED PFSH: Medical History Depression PTSD (post-traumatic stress disorder) Surgical History No pertinent past surgical history Physical Exam Const: COMMON NORMALS: alert HENMT: COMMON NORMALS: normocephalic HEAD & SCALP: normocephalic Neck/C-Spine: COMMON NORMALS: full ROM Resp: COMMON NORMALS: normal respiratory effort and clear to auscultation bilaterally AUSCULTATION: clear to auscultation bilaterally Cardio: COMMON NORMALS: regular rate and regular rhythm RATE: regular rate RHYTHM: regular rhythm GI: COMMON NORMALS: non-tender Back/Pelvis: COMMON NORMALS: thoracic and lumbar spine normal to inspection Extremity: LEFT UPPER EXTREMITY: Yes hand & digits (Bruising along the MCP joint palmar) Neuro: SENSORIUM/ORIENTATION: Yes alert Skin: COMMON NORMALS: turgor normal GENERAL SKIN EXAM: turgor normal Course Vital Signs: Vital signs: Vital Signs Temperature 97.4 F L 07/14/23 18:26 Pulse Rate 64 07/14/23 18:26 Respiratory Rate 16 07/14/23 18:26 Blood Pressure 116/74 07/14/23 18:26 Pulse Oximetry 99 07/14/23 18:26 Oxygen Delivery Me thod Room Air 07/14/23 18:26 MDM - Extremity Injury (Upper) Medical Decision Making Patient comes in for evaluation of injury to the left hand. On exam patient has some bruising to the MCP joint area of the second digit of the left hand. Differential diagnosis includes sprain, fracture, dislocation. X-ray notes no acute fracture. Reviewed exam with patient with recommendations for treatment and follow-up. Patient reported understanding. Lab Data Radiology Impressions Hand X-Ray 07/14/23 18:25 IMPRESSION: No acute findings. All radiology interpretation(s) finalized by discharge Discharge Plan Discharge Patient Disposition: Home Clinical Impression: Sprain of hand, left Qualifiers: Encounter type: initial encounter Qualified Code(s): S63.92XA - Sprain of unspecified part of left wrist and hand, initial encounter Condition: Stable Prescriptions: No Action prednisone 20 mg tablet 60 mg PO DAILY 5 Days Qty: 15 0RF methocarbamol 750 mg tablet 750 mg PO TID PRN (Reason: muscle spasm) Qty: 30 0RF ibuprofen 600 mg tablet 600 mg PO Q8H PRN (Reason: pain) Qty: 60 0RF Discharge Orders: Discharge ED (Routine); Ordered 07/14/23 Ordered By: Octavio Rush Patient Instructions: Opioid Safety, Pain Management Coding Level of Care Code ED Terminal System Operator for Winsome Muñoz
[2023-07-14 19:19] VITALS: BP 116/74; PULSE 64; RESP 16; TEMP 36.3; O2SAT 99
== END 2023-07-14 19:20 | disposition home or self-care (01) ==
PROVIDERS: Emergency Provider Nurse Practitioner Family
DX: S63.92XA Sprain of unspecified part of left wrist and hand, initial encounter (principal); W01.0XXA Fall on same level from slipping, tripping and stumbling without subsequent striking against object, initial encounter
CPT/HCPCS: 73130; 99283

== ENCOUNTER → 2023-08-04 11:49 | Outpatient (BNVA) | payer OTHER, SELFPAY | PROVIDERS: Visit Provider Family Medicine Adult Medicine | DX: R68.89 Other general symptoms and signs (principal) | CPT/HCPCS: 87400 ==

== ENCOUNTER 2023-08-25 20:40 | Emergency (ER) | payer OTHER, SELFPAY ==
[2023-08-25 20:53] VITALS: BP 111/72; PULSE 84; RESP 14; TEMP 36.6; O2SAT 97
--- NOTE | 2023-08-25 22:48 | W.ED.HA ---
HPI - Headache General: Chief Complaint: Headache Stated Complaint: N\Blurrey Vision\Weak Time Seen by Provider: 08/25/23 22:47 History of Present Illness: 23-year-old female comes in today for complaints of headache x 3 days. Patient also reports that she felt dizzy at work which prompted her to come in for further evaluation. Patient appears nontoxic. Patient appears in mild to moderate pain. Review of Systems General: Reports: 10 or more systems reviewed and unremarkable except in HPI and below PFSH ED PFSH: Medical History (Updated 08/26/23 @ 00:08 by CAMRON Frey) Influenza B Positive test 08/04/2023 for influenza B Depression PTSD (post-traumatic stress disorder) Surgical History No pertinent past surgical history Physical Exam Const: COMMON NORMALS: alert HENMT: COMMON NORMALS: normocephalic HEAD & SCALP: normocephalic Resp: COMMON NORMALS: normal respiratory effort Cardio: COMMON NORMALS: regular rate RATE: regular rate Back/Pelvis: COMMON NORMALS: thoracic and lumbar spine normal to inspection Extremity: COMMON NORMALS: normal to inspection Neuro: SENSORIUM/ORIENTATION: Yes alert Skin: COMMON NORMALS: turgor normal GENERAL SKIN EXAM: turgor normal Course Vital Signs: Vital signs: Vital Signs Temperature 97.9 F 08/25/23 20:53 Pulse Rate 83 08/25/23 23:09 Respiratory Rate 18 08/25/23 23:09 Blood Pressure 113/64 08/25/23 23:09 Pulse Oximetry 99 08/25/23 23:09 Oxygen Delivery Me thod Room Air 08/25/23 23:09 MDM - Headache Medical Decision Making 23-year-old female comes in today with migraine headache. On exam there is no focal neurodeficits. Pupils are equal reactive. Bilateral lungs are clear to auscultation. Vital signs are normal. Differential diagnosis includes tension headache, dehydration, migraine headache, anxiety. CBC CMP was normal. Patient was administered a headache cocktail including 10 mg of metoclopramide, 15 mg ketorolac, 25 mg diphenhydramine, and 10 mg of dexamethasone along with 500 mL of saline. Patient had resolution of headache and was discharged home. Lab Data 08/25/23 23:00 08/25/23 23:00 Laboratory Results WBC 10.85 10^3/uL (3.29-11.43) 08/25/23 23:00 RBC 4.77 10^6/uL (3.85-5.65) 08/25/23 23:00 Hgb 13.90 g/dL (11.27-16.99) 08/25/23 23:00 Hct 43.3 % (36-47) 08/25/23 23:00 MCV 90.8 fl (85-98) 08/25/23 23:00 MCH 29.1 pg (27-33) 08/25/23 23:00 MCHC 32.1 g/dL (30-55) 08/25/23 23:00 RDW 13.2 % (12.1-15.1) 08/25/23 23:00 Plt Count 354 10^3/cmm (157-399) 08/25/23 23:00 MPV 9.5 fL (7.4-10.4) 08/25/23 23:00 Neut % (Auto) 83.4 % 08/25/23 23:00 Lymph % (Auto) 8.8 % 08/25/23 23:00 Ashley % (Auto) 6.6 % 08/25/23 23:00 Eos % (Auto) 0.8 % 08/25/23 23:00 Baso % (Auto) 0.1 % 08/25/23 23:00 Neut # (Auto) 9.05 10^3/uL (1.8-7.7) H 08/25/23 23:00 Lymph # (Auto) 1.0 10^3/uL (0.8-4.8) 08/25/23 23:00 Ashley # (Auto) 0.7 10^3/uL (0.2-0.9) 08/25/23 23:00 Eos # (Auto) 0.1 10^3/uL (0.0-0.8) 08/25/23 23:00 Baso # (Auto) 0.0 10^3/uL (0.0-0.1) 08/25/23 23:00 Nucleated RBC % (auto) 0 % 08/25/23 23:00 Nucleated RBCs # 0.0 /100WBC 08/25/23 23:00 Sodium 141 mmol/L (136-145) 08/25/23 23:00 Potassium 3.8 mmol/L (3.5-5.1) 08/25/23 23:00 Chloride 106 mmol/L (98-107) 08/25/23 23:00 Carbon Dioxide 24 mmol/L (22-29) 08/25/23 23:00 Anion Gap 14.8 (5-19) 08/25/23 23:00 BUN 9 mg/dL (6-20) 08/25/23 23:00 Creatinine 0.6 mg/dL (0.5-0.9) 08/25/23 23:00 GFR Calculation 123.9 mL/min (90-130) 08/25/23 23:00 Glucose 87 mg/dL (65-115) 08/25/23 23:00 Calculated Osmolality 290 mOsm/kg (285-295) 08/25/23 23:00 Calcium 9.1 mg/dL (8.5-10.5) 08/25/23 23:00 Total Bilirubin 0.4 mg/dL (0.15-1.2) 08/25/23 23:00 AST 13 U/L (0-32) 08/25/23 23:00 ALT 13 U/L (0-33) 08/25/23 23:00 Alkaline Phosphatase 52 U/L (35-105) 08/25/23 23:00 Total Protein 7.4 g/dL (6.6-8.7) 08/25/23 23:00 Albumin 4.2 g/dL (3.5-5.2) 08/25/23 23:00 Globulin 3.2 g/dL (1.3-4.6) 08/25/23 23:00 HCG, Qual Negative (Negative) 08/25/23 23:00 No radiology studies performed this visit Discharge Plan Discharge Patient Disposition: Home Clinical Impression: Migraine Qualifiers: Migraine type: unspecified Status migrainosus presence: without status migrainosus Intractability: not intractable Qualified Code(s): G43.909 - Migraine, unspecified, not intractable, without status migrainosus Condition: Stable Prescriptions: No Action ibuprofen 600 mg tablet 600 mg PO Q8H PRN (Reason: pain) Qty: 60 0RF Discharge Orders: Discharge ED (Routine); Ordered 08/26/23 Ordered By: Octavio Rush Discharge Diet: Usual diet Discharge Activity: Increase activity as tolerated Patient Instructions: Migraine Headache (ED) Activity Restrictions/Additional Instructions: Home and rest. Drink plenty water and fluids. Follow-up with primary care in 2 to 3 days. Return to ED for new concerns. Stand Alone Forms: Work/School Release Coding Level of Care Code ED Inventory Control Analyst for Winsome Muñoz
[2023-08-25] MEDS: sodium chloride 0.9% 500 ML 999 ML IV (23:00)
[2023-08-25] MEDS: diphenhydrAMINE 50 mg/mL SDV 1mL 25 MG IVP (23:02)
[2023-08-25] MEDS: metoclopramide 5 mg/mL SDV 2 mL 10 MG IVP (23:02)
[2023-08-25] MEDS: dexamethasone 10 mg/mL INJ IM (23:02)
[2023-08-25] MEDS: ketorolac 30 mg/mL INJ 15 MG IVP (23:02)
[2023-08-25 23:04] LABS: Basophils % 0.1 %; Eosinophils # 0.1 10^3/uL (0.0-0.8); Eosinophils % 0.8 %; Hematocrit 43.3 % (36-47); Lymphocytes % 8.8 %; Mean Corpuscular HGB Conc 32.1 g/dL (30-55); Mean Corpuscular Hemoglobin 29.1 pg (27-33); Mean Corpuscular Volume 90.8 fl (85-98); Mean Platelet Volume 9.5 fL (7.4-10.4); Monocytes # 0.7 10^3/uL (0.2-0.9); Monocytes % 6.6 %; Neutrophils # 9.05 10^3/uL (1.8-7.7); Neutrophils % 83.4 %; Nucleated Red Blood Cells % 0 %; Platelet Count 354 10^3/cmm (157-399); Red Blood Count 4.77 10^6/uL (3.85-5.65); Red Cell Distribution Width 13.2 % (12.1-15.1); White Blood Count 10.85 10^3/uL (3.29-11.43)
[2023-08-25 23:09] VITALS: BP 113/64; PULSE 83; RESP 18; O2SAT 99
[2023-08-25 23:19] LABS: HCG, Serum Qual Negative (Negative)
[2023-08-25 23:23] LABS: Alanine Aminotransferase 13 U/L (0-33); Albumin Level 4.2 g/dL (3.5-5.2); Alkaline Phosphatase 52 U/L (35-105); Anion Gap 14.8 (5-19); Aspartate Amino Transferase 13 U/L (0-32); Blood Urea Nitrogen 9 mg/dL (6-20); Calcium 9.1 mg/dL (8.5-10.5); Carbon Dioxide 24 mmol/L (22-29); Chloride 106 mmol/L (98-107); Creatinine Clr Calc Pharmacy 153.3316; Globulin 3.2 g/dL (1.3-4.6); Glomerular Filtration Rate 123.9 mL/min (90-130); Glucose 87 mg/dL (65-115); Osmolality Calculated 290 mOsm/kg (285-295); Potassium 3.8 mmol/L (3.5-5.1); Sodium 141 mmol/L (136-145); Total Bilirubin 0.4 mg/dL (0.15-1.2); Total Protein 7.4 g/dL (6.6-8.7)
[2023-08-26 00:29] VITALS: BP 120/59; PULSE 69; O2SAT 95
== END 2023-08-26 00:29 | disposition home or self-care (01) ==
PROVIDERS: Emergency Provider Nurse Practitioner Family
DX: G43.909 Migraine, unspecified, not intractable, without status migrainosus (principal)
CPT/HCPCS: 80053; 84703; 85025; 96372; 96374; 96375; 99284; J1100; J1200; J1885; J2765; J7040

== ENCOUNTER → 2023-09-14 14:27 | Outpatient (BNVA) | payer OTHER, SELFPAY | PROVIDERS: Referring Provider Nurse Practitioner Family; Visit Provider Psychiatry & Neurology Neurology | DX: G43.909 Migraine, unspecified, not intractable, without status migrainosus (principal); E53.8 Deficiency of other specified B group vitamins; E55.9 Vitamin D deficiency, unspecified | CPT/HCPCS: 36415; 82306; 82607; 82746; 83735; 83921; 84439; 84443; 84481 ==

== ENCOUNTER → 2024-03-12 15:40 | Outpatient (BNVA) | payer OTHER, SELFPAY | PROVIDERS: PCP Family Medicine; Visit Provider Family Medicine | DX: F32.1 Major depressive disorder, single episode, moderate (principal); F31.9 Bipolar disorder, unspecified; S69.91XA Unspecified injury of right wrist, hand and finger(s), initial encounter; X58.XXXA Exposure to other specified factors, initial encounter | CPT/HCPCS: 73130 ==

== ENCOUNTER 2024-07-20 14:09 | Emergency (ER) | payer OTHER, SELFPAY ==
[2024-07-20 14:10] VITALS: BP 101/66; PULSE 73; RESP 16; TEMP 36.4; O2SAT 99; BMI 27.4
--- NOTE | 2024-07-20 14:19 | W.ED.HA ---
HPI - Headache General: Chief Complaint: Headache Stated Complaint: migraine Time Seen by Provider: 07/20/24 14:12 Source: patient Mode of arrival: ambulatory Limitations: no limitations History of Present Illness: Patient is a 24-year-old female presents to ED today with a complaint of a migraine headache over the past 4 days. She states she has a longstanding history of migraine headaches and normally uses Ubrelvy. She states this medication is not helping with her current headache. She states her headache currently feels like typical migraine headaches. She is currently rating it an 8/10. Headache seems to be worse with light and sound. She has no fevers or neck pain/stiffness. No recent injury or trauma. She states she has had to come to the ER before for previous migraines and the typical migraine medications usually help. MD elicited complaint: headache and migraine Pertinent past history: migraines Onset (ago): day(s) Severity: severe Pain scale (0-10): 8 Quality & Timing: similar to previous headaches Exacerbating factors: light and noise Relieving factors: nothing Associated symptoms: Reports nausea; Deny confusion, fever(s), lightheadedness, pre-syncope, syncope or vomiting Treatments prior to arrival: migraine medication Related Data Previous Rx's ?Medication ?Instructions ?Recorded thiamine HCl (vitamin B1) 100 mg 100 mg PO DAILY #30 tabs 09/14/23 tablet cholecalciferol (vitamin D3) 1,250 50,000 unit PO ONCE #8 caps 09/19/23 mcg (50,000 unit) capsule ubrogepant 100 mg tablet (Ubrelvy) 100 mg PO DAILY PRN chronic 12/15/23 migraine #14 tabs aripiprazole 10 mg tablet (Abilify) 10 mg PO DAILY #30 tabs 05/22/24 buspirone 10 mg tablet 10 mg PO BID #60 tabs 05/22/24 trazodone 50 mg tablet 100 mg (2 x 50 mg) PO .HS PRN 05/22/24 insomnia #60 tabs venlafaxine 75 mg tablet,extended 75 mg PO DAILY #30 tabs 05/22/24 release 24 hr ondansetron HCl 4 mg tablet 4 mg PO Q8H PRN nausea and 06/19/24 vomiting #10 tabs Allergies Allergy/AdvReac Type Severity Reaction Status Date / Time NKDA AdvReac Mild NKDA Uncoded 06/19/24 18:10 Review of Systems Const: Denies: fever(s) Eyes: Reports: photophobia; Denies: change in vision, blurry vision, floaters or seeing flashes Card: Denies: lightheadedness, syncope or pre-syncope GI: Reports: nausea; Denies: vomiting Musc: Denies: neck pain Neuro: Reports: headache(s); Denies: numbness in extremities, weakness in extremities, sensory changes, lack of coordination, dizziness, confusion, behavioral changes, Slurred speech present, difficulty communicating thoughts or seizure-like activity PFS ED PFSH: Medical History Psychiatric care Chronic migraine Methamphetamine use disorder, moderate, in sustained remission Alcohol use disorder, severe, in sustained remission DEEPAK (generalized anxiety disorder) Moderate major depression Concentration deficit Tachycardia Bipolar disorder Influenza B Positive test 08/04/2023 for influenza B Depression PTSD (post-traumatic stress disorder) Surgical History No pertinent past surgical history Social History Smoking and tobacco/nicotine status: current every day tobacco/nicotine user (vape) Physical Exam Const: COMMON NORMALS: no acute distress, average body habitus, patient oriented x3, no limitations, healthy appearing, alert and well nourished HENMT: FACE & SINUS: normal facial exam Eye: GENERAL EYE: appearance normal, both eyes and all related structures and normal light reflex DIRECT OPHTHALMOSCOPY: Yes normal light reflex Neck/C-Spine: COMMON NORMALS: full ROM and no meningeal signs GENERAL: Yes normal visual inspection Neuro: DIAN COMA SCALE: document GCS findings [place] coma scale eye opening: Spontaneous Dian coma scale verbal response: Orientated Dian coma scale motor response: Obey commands [place] coma scale total score: 15 COMMON NORMALS: patient oriented x3, CN's II-XII intact bilaterally, moves all extremities, no focal motor deficits, no sensory deficits noted and gait normal SENSORIUM/ORIENTATION: Yes alert MENINGEAL SIGNS: Yes no meningeal signs Course Vital Signs: Vital signs: Vital Signs Temperature 97.5 F L 07/20/24 14:10 Pulse Rate 58 L 07/20/24 15:32 Respiratory Rate 16 07/20/24 15:32 Blood Pressure 111/66 07/20/24 15:32 Pulse Oximetry 98 07/20/24 15:32 Oxygen Delivery Me thod Room Air 07/20/24 15:32 MDM - Headache Medical Decision Making SAMANIEGO improved after medications. She wants to go home and rest. Return precautions discussed. Medical Records I reviewed the patient's medical records. No radiology studies performed this visit Discharge Plan Discharge Patient Disposition: Home Clinical Impression: Migraine Qualifiers: Migraine type: unspecified Status migrainosus presence: without status migrainosus Intractability: not intractable Qualified Code(s): G43.909 - Migraine, unspecified, not intractable, without status migrainosus Condition: Stable Prescriptions: No Action thiamine HCl (vitamin B1) 100 mg tablet 100 mg PO DAILY Qty: 30 0RF ondansetron HCl 4 mg tablet 4 mg PO Q8H PRN (Reason: nausea and vomiting) Qty: 10 0RF venlafaxine 75 mg tablet extended release 24hr 75 mg PO DAILY Qty: 30 2RF aripiprazole [Abilify] 10 mg tablet 10 mg PO DAILY Qty: 30 2RF buspirone 10 mg tablet 10 mg PO BID Qty: 60 2RF trazodone 50 mg tablet 100 mg PO .HS PRN (Reason: insomnia) Qty: 60 2RF cholecalciferol (vitamin D3) 1,250 mcg (50,000 unit) capsule 50,000 unit PO ONCE Qty: 8 5RF Rx Instructions: take 1 tab weekly Ubrelvy 100 mg tablet 100 mg PO DAILY PRN (Reason: chronic migraine) Qty: 14 5RF Rx Instructions: do not exceed 200 mg a day Discharge Orders: Discharge ED (Routine); Ordered 07/20/24 Ordered By: Selina Roberson Referrals: Marcus Nicholson MD [Primary Care Provider] - Patient Instructions: Migraine Headache (ED) Stand Alone Forms: Work/School Release Print Language: Tuvaluan Coding Level of Care Code ED Hand Mold Maker for Winsome Muñoz
[2024-07-20] MEDS: diphenhydrAMINE 50 mg/mL SDV 1mL IM (14:55)
[2024-07-20] MEDS: ketorolac 60 mg/2 mL INJ IM (14:55)
[2024-07-20] MEDS: ondansetron 2 mg/ML SDV 2 mL 4 MG IM (14:55)
[2024-07-20 15:32] VITALS: BP 111/66; PULSE 58; RESP 16; O2SAT 98
[2024-07-20] MEDS: SUMAtriptan 6 mg/0.5 mL SDV SUBCUT (15:36)
[2024-07-20 16:23] VITALS: BP 109/84; PULSE 79; RESP 18; O2SAT 100
== END 2024-07-20 16:24 | disposition home or self-care (01) ==
PROVIDERS: Emergency Provider Physician Assistant; PCP Family Medicine
DX: G43.909 Migraine, unspecified, not intractable, without status migrainosus (principal); F17.290 Nicotine dependence, other tobacco product, uncomplicated
CPT/HCPCS: 96372; 99284; J1200; J1885; J2405; J3030

== ENCOUNTER 2024-07-26 10:11 | Emergency (ER) | payer OTHER, SELFPAY ==
[2024-07-26 11:06] LABS: Basophils % 0.5 %; Eosinophils # 0.1 10^3/uL (0.0-0.8); Eosinophils % 1.9 %; Hematocrit 44.2 % (36-47); Lymphocytes # 1.1 10^3/uL (0.8-4.8); Lymphocytes % 17.6 %; Mean Corpuscular HGB Conc 32.4 g/dL (30-55); Mean Corpuscular Hemoglobin 29.4 pg (27-33); Mean Corpuscular Volume 90.8 fl (85-98); Mean Platelet Volume 8.9 fL (7.4-10.4); Monocytes # 0.4 10^3/uL (0.2-0.9); Monocytes % 6.6 %; Neutrophils # 4.69 10^3/uL (1.8-7.7); Neutrophils % 73.1 %; Nucleated Red Blood Cells % 0 %; Platelet Count 424 10^3/cmm (157-399); Red Blood Count 4.87 10^6/uL (3.85-5.65); Red Cell Distribution Width 13.1 % (12.1-15.1); White Blood Count 6.41 10^3/uL (3.29-11.43)
[2024-07-26 11:19] VITALS: BP 119/71; PULSE 65; RESP 18; TEMP 36.8; O2SAT 98
[2024-07-26 11:35] LABS: Alanine Aminotransferase 10 U/L (0-33); Alkaline Phosphatase 51 U/L (35-105); Aspartate Amino Transferase 12 U/L (0-32); Blood Urea Nitrogen 7 mg/dL (6-20); Calcium 9.3 mg/dL (8.5-10.5); Carbon Dioxide 26 mmol/L (22-29); Chloride 100 mmol/L (98-107); Globulin 3.4 g/dL (1.3-4.6); Glomerular Filtration Rate 102.8 mL/min (90-130); Glucose 92 mg/dL (65-115); Lipase 20 U/L (13-60); Osmolality Calculated 286 mOsm/kg (285-295); Sodium 139 mmol/L (136-145); Total Bilirubin 0.3 mg/dL (0.15-1.2); Total Protein 7.4 g/dL (6.6-8.7)
--- NOTE | 2024-07-26 11:46 | ED_ITS ---
HPI - Headache 2 General: Chief Complaint: Headache Stated Complaint: vomitting blood and headache Time Seen by Provider: 07/26/24 11:18 History of Present Illness: 24-year-old female with history of migra ine headaches, alcohol use in remission, bipolar disorder and PTSD who presents emergency room with a headache and vomiting. She says she vomited some blood. Says she has vomited blood before but use that after she vomited she said there was blood when she had vomited initially today. She has some mild left lower quadrant pain. Not tender to palpation. No dysuria. No chest pain. She has photophobia. She says this could be just one of her migraines but she was concerned about the vomiting of the blood. Related Data Previous Rx's ?Medication ?Instructions ?Recorded thiamine HCl (vitamin B1) 100 mg 100 mg PO DAILY #30 t abs 09/14/23 tablet cholecalciferol (vitamin D3) 1,250 50,000 unit PO ONCE #8 caps 09/19/23 mcg (50,000 unit) capsule ubrogepant 100 mg tablet (Ubrelvy) 100 mg PO DAILY PRN chronic 12/15/23 migraine #14 tabs aripiprazole 10 mg tablet (Abilify) 10 mg PO DAILY #30 tabs 05/22/24 buspirone 10 mg tablet 10 mg PO BID #60 tabs trazodone 50 mg tablet 100 mg (2 x 50 mg) PO .HS [place] N 05/22/24 insomnia #60 tabs venlafaxine 75 mg tablet,extended 75 mg PO DAILY #30 t abs 05/22/24 release 24 hr ondansetron HCl 4 mg tablet 4 mg PO Q8H PRN nausea and 06/19/24 vomiting #10 tabs ondansetron 8 mg disintegrating 8 mg PO Q6H #14 tabs 0 07/26/24 tablet promethazine 25 mg rectal 25 mg [place] Q6H PRN nausea and 07/26/24 suppository vomiting #12 ea Allergies Allergy/AdvReac Type Severity Reaction Status Date / Time NKDA AdvReac Mild NKDA Uncoded 06/19/24 18:10 Review of Systems 2 Narrative: Constitutional symptoms: Negative except as documented in HPI. Skin symptoms: Negative except as documented in HPI. Eye symptoms: Negative except as documented in HPI. ENMT symptoms: Negative except as documented in HPI. Respiratory symptoms: Negative except as documented in HPI. Cardiovascular symptoms: Negative except as documented in HPI. Gastrointestinal symptoms: Negative except as documented in HPI. Genitourinary symptoms: Negative except as documented in HPI. Musculoskeletal symptoms: Negative except as documented in HPI. Neurologic symptoms: Negative except as documented in HPI. Psychiatric symptoms: Negative except as documented in HPI. Endocrine symptoms: Negative except as documented in HPI. PFSH ED 2 PFSH: Medical History Psychiatric care Chronic migraine Methamphetamine use disorder, moderate, in sustained remission Alcohol use disorder, severe, in sustained remission DEEPAK (generalized anxiety disorder) Moderate major depression Concentration deficit Tachycardia Bipolar disorder Influenza B Positive test 08/04/2023 for influenza B Depression PTSD (post-traumatic stress disorder) Surgical History No pertinent past surgical history Social History Smoking and tobacco/nicotine status: current every day tobacco/nicotine user (vape) Physical Exam 2 Narrative: EXAM NARRATIVE: General: Alert, no acute distress. Skin: Warm, dry. Head: Normocephalic, atraumatic. Neck: Supple, trachea midline. Eye: Extraocular movements are intact. Ears, nose, mouth and throat: Tacky oral mucosa Cardiovascular: Regular, Normal peripheral perfusion. Respiratory: Lungs are clear to auscultation, respirations are non-labored, breath sounds are equal, Symmetrical chest wall expansion. Gastrointestinal: Soft, Nontender, Non distended Musculoskeletal: Normal ROM, no deformity. Neurological: Alert and oriented, No focal neurological deficit observed. Psychiatric: Cooperative, appropriate mood & affect. Course 2 Vital Signs: Vital signs: Vital Signs Temperature 98.2 F 07/26/24 11:19 Pulse Rate 63 07/26/24 14:35 Respiratory Rate 18 07/26/24 11:19 Blood Pressure 126/87 07/26/24 14:35 Pulse Oximetry 93 07/26/24 14:35 Oxygen Delivery Me thod Room Air 07/26/24 14:00 MDM - Headache Medical Decision Making Medical decision making: Differential diagnosis for this patient presenting with severe headache including but not limited to and based on the above HPI, review of systems and physical exam: Intracranial hemorrhage, stroke, migraine, cluster headache, infections such as influenza, covid Orders placed to evaluate differential diagnosis based on the above differential, HPI and physical exam Lab Review: Laboratory results were reviewed and interpreted by myself the emergency room physician. No leukocytosis. No anemia. No renal failure. No UTI. No flu or COVID. I reviewed the patient's medical record. Reexamination: Patient says she feels much better after medications. Assessment and plan: Migraine headache - 50 mg IV Benadryl - 30 mg IV Toradol - 10 mg IV Reglan - 8 mg IV Zofran - 60 mg IV Norflex - 1 L normal saline bolus - Discharged home - Discussed plan with patient. Answered any questions. - Evaluation and treatment of this problem were appropriate in the emergency setting. Lab Data 07/26/24 10:50 07/26/24 10:50 Laboratory Results WBC 6.41 10^3/uL (3.29-11.43) 07/26/24 10:50 RBC 4.87 10^6/uL (3.85-5.65) 07/26/24 10:50 Hgb 14.30 g/dL (11.27-16.99) 07/26/24 10:50 Hct 44.2 % (36-47) 07/26/24 10:50 MCV 90.8 fl (85-98) 07/26/24 10:50 MCH 29.4 pg (27-33) 07/26/24 10:50 MCHC 32.4 g/dL (30-55) 07/26/24 10:50 RDW 13.1 % (12.1-15.1) 07/26/24 10:50 Plt Count 424 10^3/cmm (157-399) H 07/26/24 10:50 MPV 8.9 fL (7.4-10.4) 07/26/24 10:50 Neut % (Auto) 73.1 % 07/26/24 10:50 Lymph % (Auto) 17.6 % 07/26/24 10:50 Bleck[place] % (Auto) 6.6 % 07/26/24 10:50 Eos % (Auto) 1.9 % 07/26/24 10:50 Baso % (Auto) 0.5 % 07/26/24 10:50 Neut # (Auto) 4.69 10^3/uL (1.8-7.7) 07/26/24 10:50 Lymph # (Auto) 1.1 10^3/uL (0.8-4.8) 07/26/24 10:50 [place]ck[place] # (Auto) 0.4 10^3/uL (0.2-0.9) 07/26/24 10:50 Eos # (Auto) 0.1 10^3/uL (0.0-0.8) 07/26/24 10:50 Baso # (Auto) 0.0 10^3/uL (0.0-0.1) 07/26/24 10:50 Nucleated RBC % (auto) 0 % 07/26/24 10:50 Nucleated RBCs # 0.0 /100WBC 07/26/24 10:50 Sodium 139 mmol/L (136-145) 07/26/24 10:50 Potassium 4.0 mmol/L (3.5-5.1) 07/26/24 10:50 Chloride 100 mmol/L (98-107) 07/26/24 10:50 Carbon Dioxide 26 mmol/L (22-29) 07/26/24 10:50 Anion Gap 17.0 (5-19) 07/26/24 10:50 BUN 7 mg/dL (6-20) 07/26/24 10:50 Creatinine 0.7 mg/dL (0.5-0.9) 07/26/24 10:50 GFR Calculation 102.8 mL/min (90-130) 07/26/24 10:50 Glucose 92 mg/dL (65-115) 07/26/24 10:50 Calculated Osmolality 286 mOsm/kg (285-295) 07/26/24 10:50 Calcium 9.3 mg/dL (8.5-10.5) 07/26/24 10:50 Total Bilirubin 0.3 mg/dL (0.15-1.2) 07/26/24 10:50 AST 12 U/L (0-32) 07/26/24 10:50 ALT 10 U/L (0-33) 07/26/24 10:50 Alkaline Phosphatase 51 U/L (35-105) 07/26/24 10:50 Total Protein 7.4 g/dL (6.6-8.7) 07/26/24 10:50 Albumin 4.0 g/dL (3.5-5.2) 07/26/24 10:50 Globulin 3.4 g/dL (1.3-4.6) 07/26/24 10:50 Lipase 20 U/L (13-60) 07/26/24 10:50 Urine Color Yellow (Yellow) 07/26/24 13:21 Urine Appearance Clear (CLEAR) 07/26/24 13:21 Urine pH 7.5 (5-7) 07/26/24 13:21 Ur Specific [place] 1.008 (1.005-1.030) 07/26/24 13:21 Urine Protein Negative (Negative) 07/26/24 13:21 Urine Glucose (UA) Negative (Normal) 07/26/24 13:21 Urine Ketones Negative (Negative) 07/26/24 13:21 Urine Blood Negative (Negative) 07/26/24 13:21 Urine Nitrate Negative (Negative) 07/26/24 13:21 Urine Bilirubin Negative (Negative) 07/26/24 13:21 Urine Urobilinogen 0.2 mg/dL (Negative) 07/26/24 13:21 Ur Leukocyte Esterase Trace (Negative) A 07/26/24 13:21 Urine RBC 0-4 /hpf (0-2) H 07/26/24 13:21 Urine WBC 0-5 /hpf (0-5) 07/26/24 13:21 Ur Squamous Epith Cells 3-5 /hpf (0-5) 07/26/24 13:21 Amorphous Sediment Not Reportable 07/26/24 13:21 Urine Bacteria Trace /hpf (NONE) 07/26/24 13:21 Fine Granular Casts Rare /lpf 07/26/24 13:21 Urine Opiates Screen Negative ng/mL (Negative) 07/26/24 13:21 Ur Barbiturates Screen Negative ng/mL (Negative) 07/26/24 13:21 Ur Phencyclidine Scrn Negative ng/mL (Negative) 07/26/24 13:21 Ur Amphetamines Screen Negative ng/mL (Negative) 07/26/24 13:21 U Benzodiazepines Scrn Negative ng/mL (Negative) 07/26/24 13:21 Urine Cocaine Screen Negative ng/mL (Negative) 07/26/24 13:21 U Marijuana (THC) Screen Positive ng/mL (Negative) H 07/26/24 13:21 Ethyl Alcohol < 10 mg/dL (0-10) 07/26/24 10:50 Influenza A (PCR) Negative (Negative) 07/26/24 11:20 Influenza Type B (PCR) Negative (Negative) 07/26/24 11:20 RSV (PCR) Negative (Negative) 07/26/24 11:20 SARS-CoV-2 (PCR) Negative (Negative) 07/26/24 11:20 No radiology studies performed this visit Discharge Plan Discharge Patient Disposition: Home Clinical Impression: Vomiting, Dehydration Migraine Qualifiers: Migraine type: unspecified Status migrainosus presence: without status migrainosus Intractability: not intractable Qualified Code(s): G43.909 - Migraine, unspecified, not intractable, without status migrainosus Condition: Stable Prescriptions: New promethazine 25 mg suppository 25 mg [place] Q6H PRN (Reason: nausea and vomiting) Qty: 12 0RF ondansetron 8 mg tablet,disintegrating 8 mg PO Q6H Qty: 14 0RF Rx Instructions: Take 1/2-1 tab every 6 hours as needed for nausea and vomiting No Action thiamine HCl (vitamin B1) 100 mg tablet 100 mg PO DAILY Qty: 30 0RF ondansetron HCl 4 mg tablet 4 mg PO Q8H PRN (Reason: nausea and vomiting) Qty: 10 0RF venlafaxine 75 mg tablet extended release 24hr 75 mg PO DAILY Qty: 30 2RF aripiprazole [Abilify] 10 mg tablet 10 mg PO DAILY Qty: 30 2RF buspirone 10 mg tablet 10 mg PO BID Qty: 60 2RF trazodone 50 mg tablet 100 mg PO .HS PRN (Reason: insomnia) Qty: 60 2RF cholecalciferol (vitamin D3) 1,250 mcg (50,000 unit) capsule 50,000 unit PO ONCE Qty: 8 5RF Rx Instructions: take 1 tab weekly Ubrelvy 100 mg tablet 100 mg PO DAILY PRN (Reason: chronic migraine) Qty: 14 5RF Rx Instructions: do not exceed 200 mg a day Discharge Orders: Discharge ED (Routine); Ordered 07/26/24 Ordered By: Cha Munoz Referrals: Marcus Nicholson MD [Primary Care Provider] - Discharge Diet: Advance as tolerated Discharge Activity: Increase activity as tolerated Patient Instructions: Migraine Headache (ED), Acute Nausea and Vomiting (ED), Opioid Safety, Pain Management Activity Restrictions/Additional Instructions: Thank you for choosing [facility] for your healthcare needs today. Please realize this is an emergency room and that we are providing you with a medical screening exam and this may not be complete and all inclusive of all the testing and or work up that you may need to determine your ailment or severity of your illness. You have been screened and evaluated and felt safe for discharge. Health conditions do change or evolve sometimes and as such it is important that you follow up with your Primary Doctor to be re checked, 3-5 days is a general good time frame for follow up. You are always welcome to return to the ED for re assessment if your symptoms are worsening or you have new concerns Print Language: Korean Coding Level of Care Code ED Milk Collector for Winsome Muñoz
[2024-07-26 11:59] LABS: Alcohol Level < 10 mg/dL (0-10)
[2024-07-26 12:11] LABS: Influenza A NEGATIVE (Negative); Influenza B NEGATIVE (Negative); Respiratory Syncytial Virus Ce NEGATIVE (Negative); SARS-CoV-2 PCR NEGATIVE (Negative)
[2024-07-26] MEDS: sodium chloride 0.9% 1,000 ML 999 ML IV (12:13)
[2024-07-26 12:37] VITALS: PULSE 63; O2SAT 98
[2024-07-26] MEDS: ondansetron 2 mg/ML SDV 2 mL 8 MG IVP (12:37)
[2024-07-26] MEDS: ketorolac 30 mg/mL INJ IVP (12:37)
[2024-07-26 13:22] VITALS: BP 122/73; PULSE 70; O2SAT 93
[2024-07-26] MEDS: diphenhydrAMINE 50 mg/mL SDV 1mL 25 MG IVP (13:27)
[2024-07-26] MEDS: metoclopramide 5 mg/mL SDV 2 mL 10 MG IVP (13:28)
[2024-07-26] MEDS: orphenadrine 30 mg/mL Inj 2 mL 60 MG IVP (13:29)
[2024-07-26 13:32] VITALS: BP 122/72; PULSE 81; O2SAT 98
[2024-07-26 13:32] LABS: Bilirubin Urine Negative (Negative); Blood Urine Negative (Negative); Glucose Urine UA Negative (Normal); Ketones Urine Negative (Negative); Leukocyte Esterase Urine Trace (Negative); Nitrate Urine Negative (Negative); Protein Urine Negative (Negative); Specific Gravity, Urine 1.008 (1.005-1.030); Urine Appearance Clear (CLEAR); Urine Color Yellow (Yellow); Urobilinogen Urine 0.2 mg/dL (Negative); pH Urine 7.5 (5-7)
[2024-07-26 13:40] LABS: Amphetamines Screen Urine Negative (Negative); Barbiturates Screen Urine Negative (Negative); Benzodiazepines Screen Urine Negative (Negative); Cocaine Screen Urine Negative (Negative); Opiate Screen Urine Negative (Negative); PCP Screen Urine Negative (Negative); THC Screen Urine Positive (Negative)
[2024-07-26 14:00] VITALS: BP 97/53; PULSE 65; O2SAT 100
[2024-07-26 14:19] LABS: Bacteria Urine TRACE /hpf; RBC Urine 0-4 /hpf (0-2); UA Manual Slide Review YES; UA Slide Review UA Slide Review Perf; WBC Urine 0-5 /hpf (0-5)
[2024-07-26 14:20] LABS: Fine Granular Casts Urine RARE /lpf
[2024-07-26 14:35] VITALS: BP 126/87; PULSE 63; O2SAT 93
== END 2024-07-26 14:36 | disposition home or self-care (01) ==
PROVIDERS: Emergency Medicine; Emergency Provider Emergency Medicine; PCP Family Medicine
DX: R11.10 Vomiting, unspecified (principal); E86.0 Dehydration; G43.909 Migraine, unspecified, not intractable, without status migrainosus; Z11.52 Encounter for screening for COVID-19; F17.290 Nicotine dependence, other tobacco product, uncomplicated
CPT/HCPCS: 36415; 80053; 80306; 80307; 81001; 83690; 85025; 87637; 96361; 96374; 96375; 99284; J1200; J1885; J2360; J2405; J2765; J7030

== ENCOUNTER 2024-10-11 02:25 | Emergency (ER) | payer OTHER, SELFPAY ==
[2024-10-11 02:29] VITALS: BP 147/84; PULSE 118; RESP 18; TEMP 37.5; O2SAT 97; BMI 28.8
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
[2024-10-11 02:37] VITALS: BP 138/85; PULSE 104; RESP 16; O2SAT 96
[2024-10-11] MEDS: HYDROcodone-acetaminophen 5-325 mg Tablet 1 TAB PO (03:10)
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
[2024-10-11 03:38] VITALS: BP 131/81; PULSE 102; O2SAT 96
== END 2024-10-11 03:40 | disposition home or self-care (01) ==
PROVIDERS: Emergency Provider Emergency Medicine; PCP Family Medicine
DX: S62.91XA Unspecified fracture of right hand, initial encounter for closed fracture (principal); F17.290 Nicotine dependence, other tobacco product, uncomplicated; Y04.2XXA Assault by strike against or bumped into by another person, initial encounter
CPT/HCPCS: 29125; 73130; 99283; J9999

== ENCOUNTER → 2024-12-26 10:02 | Outpatient (BNVA) | payer OTHER, SELFPAY | PROVIDERS: PCP Family Medicine; Visit Provider Registered Nurse Neonatal Intensive Care | DX: M25.562 Pain in left knee (principal) | CPT/HCPCS: 73562 ==

== ENCOUNTER → 2025-01-03 14:20 | Outpatient (BNVA) | payer OTHER, SELFPAY | PROVIDERS: PCP Family Medicine; Visit Provider Orthopaedic Surgery | DX: S89.92XD Unspecified injury of left lower leg, subsequent encounter (principal); M25.562 Pain in left knee; W19.XXXD Unspecified fall, subsequent encounter | CPT/HCPCS: 73560; 73565 ==

== ENCOUNTER 2025-02-26 14:03 | Emergency (ER) | payer OTHER, SELFPAY ==
--- NOTE | 2025-02-26 14:05 | XR_ITS ---
WS: [id number] Exam: XR chest 1V portable [id number] Date/Time of Exam: 02/26/2025 2:05 PM Reason For Exam: dyspnea/cough Comparison 08/31/2021. Lungs are fully expanded and clear. Normal cardiomediastinal silhouette. No pleural effusions. Unremarkable bony structures. XR/XR chest 1V portable [id number] IMPRESSION: 1. Negative chest.
--- NOTE | 2025-02-26 14:12 | ECG_ITS ---
[facility]: 2025-02[facility]26 Pat Name: Nas Haji Department: Room: Gender: Female Rn Call Center: : 2000 Requested By: Chris Macias Order Number: [id number] Prem MD: Eric Adame M.D. Measurements Intervals [place] Rate: 89 P: 40 TX: 126 QRS: 40 QRSD: 96 T: 26 QT: 342 QTc: 416 Interpretive Statements SINUS RHYTHM POSSIBLE RIGHT VENTRICULAR CONDUCTION DELAY [RSR (QR) IN V1/V2] Compared to ECG 03/19/2021 01:27:03 Sinus arrhythmia no longer present Electronically Signed On 02-27-2025 21:24:14 CDT by Eric Adame M.D. [email or web address] [id number]
[2025-02-26 14:14] VITALS: BP 127/76; PULSE 95; RESP 16; TEMP 36.4; O2SAT 100; BMI 27.4
[2025-02-26 14:37] LABS: Hematocrit 41.0 % (36-47); Hemoglobin 13.50 g/dL (11.27-16.99); Mean Corpuscular HGB Conc 32.9 g/dL (30-55); Mean Corpuscular Hemoglobin 29.9 pg (27-33); Mean Corpuscular Volume 90.7 fl (85-98); Nucleated Red Blood Cells % 0 %; Platelet Count 407 10^3/cmm (157-399); Red Blood Count 4.52 10^6/uL (3.85-5.65); White Blood Count 7.96 10^3/uL (3.29-11.43)
--- NOTE | 2025-02-26 14:42 | ECG_ITS ---
[facility] Test Date: 2025-02-26 Pat Name: Nas Haji Department: Room: Gender: Female [employer]: : 2000 Requested By: Stefan Santos Order Number: [id number] Amaro MD: Eric Adame M.D. Measurements Intervals [place] Rate: 84 P: 37 MA: 141 QRS: 34 QRSD: 94 T: 23 QT: 345 QTc: 410 Interpretive Statements SINUS RHYTHM POSSIBLE RIGHT VENTRICULAR CONDUCTION DELAY [RSR (QR) IN V1/V2] Compared to ECG 03/19/2021 01:27:03 NO SIGNIFICANT CHANGE Electronically Signed On 02-27-2025 20:49:54 CDT by Eric Adame M.D. [email or web address] [id number]
[2025-02-26 14:57] LABS: Alanine Aminotransferase 22 U/L (0-33); Albumin Level 4.3 g/dL (3.5-5.2); Alkaline Phosphatase 49 U/L (35-105); Anion Gap 15.9 (5-19); Aspartate Amino Transferase 15 U/L (0-32); Blood Urea Nitrogen 15 mg/dL (6-20); Calcium 9.4 mg/dL (8.5-10.5); Carbon Dioxide 24 mmol/L (22-29); Chloride 102 mmol/L (98-107); Creatinine Clr Calc Pharmacy 113.7057; Globulin 3.2 g/dL (1.3-4.6); Glucose 85 mg/dL (65-115); Osmolality Calculated 286 mOsm/kg (285-295); Potassium 3.9 mmol/L (3.5-5.1); Sodium 138 mmol/L (136-145); Total Protein 7.5 g/dL (6.6-8.7)
--- NOTE | 2025-02-26 15:09 | W.ED.CHESTPA ---
HPI - Chest Pain General: Chief Complaint: Chest Pain Stated Complaint: alise saini Time Seen by Provider: 02/26/25 14:05 Source: patient Mode of arrival: ambulatory Limitations: no limitations History of Present Illness: Patient is a 24-year-old female who presents to the emergency department complaining of chest pain and shortness of breath that began yesterday. She states that she was at primary care office this morning and was referred to the emergency department as she states her primary care had fear that she was having a heart attack. Patient denies any personal cardiac history other than transient tachycardia, does have a history of anxiety and panic but states this feels somewhat different. She does have a history of asthma as well, but states that she is not wheezing and her shortness of breath is worse with ambulating. Does report positive family history of cardiac disease prior to the age of 40, states that she herself has not underwent any specialized cardiac testing such as echocardiogram or stress testing. Does report some dizziness and lightheadedness, no syncopal episodes and she does note that her chest pain has eased up at this time. She notes the pain is centrally located and nonradiating, only exacerbating factor is exertion. Overall pain has been constant since onset despite the improvement. MD complaint: chest pain Onset (ago): day(s) Timing of current episode: constant and other (Improving) Prior episodes: No Onset: during rest Pain location: substernal Pain radiation: none Severity: mild Quality: tightness Exacerbating factors: exertion Associated symptoms: Reports dyspnea; Deny abdominal pain, fever(s), nausea, palpitations or vomiting Related Data Previous Rx's ?Medication ?Instructions ?Recorded thiamine HCl (vitamin B1) 100 mg 100 mg PO DAILY #30 tabs 09/14/23 tablet cholecalciferol (vitamin D3) 1,250 50,000 unit PO ONCE #8 caps 09/19/23 mcg (50,000 unit) capsule ubrogepant 100 mg tablet (Ubrelvy) 100 mg PO DAILY PRN chronic 12/15/23 migraine #14 tabs aripiprazole 10 mg tablet (Abilify) 10 mg PO DAILY #30 tabs 05/22/24 buspirone 10 mg tablet 10 mg PO BID #60 tabs 05/22/24 trazodone 50 mg tablet 100 mg (2 x 50 mg) PO .HS PRN 05/22/24 insomnia #60 tabs venlafaxine 75 mg tablet,extended 75 mg PO DAILY #30 tabs 05/22/24 release 24 hr ondansetron HCl 4 mg tablet 4 mg PO Q8H PRN nausea and 06/19/24 vomiting #10 tabs ondansetron 8 mg disintegrating 8 mg PO Q6H #14 tabs 07/26/24 tablet Allergies Allergy/AdvReac Type Severity Reaction Status Date / Time No Known Allergies Allergy Verified 02/26/25 14:16 Review of Systems General: Reports: 10 or more systems reviewed and unremarkable except in HPI and below Const: Denies: fever(s), chills or fatigue Eyes: Denies: change in vision ENMT: Denies: throat pain, ear or mastoid pain or nasal discharge Card: Reports: chest pain and lightheadedness; Denies: palpitations or swelling of feet/ankles Resp: Reports: dyspnea; Denies: productive cough or wheezing GI: Denies: abdominal pain, nausea, vomiting, diarrhea or constipation : Denies: flank pain, difficulty voiding, dysuria or urinary frequency Musc: Denies: neck pain, back pain or joint pain Skin/Breast: Denies: rash Neuro: Reports: dizziness; Denies: headache(s), numbness in extremities or weakness in extremities PFSH ED PFSH: Medical History Psychiatric care Chronic migraine Methamphetamine use disorder, moderate, in sustained remission Alcohol use disorder, severe, in sustained remission DEEPAK (generalized anxiety disorder) Moderate major depression Concentration deficit Tachycardia Bipolar disorder Influenza B Positive test 08/04/2023 for influenza B Depression PTSD (post-traumatic stress disorder) Surgical History No pertinent past surgical history Social History Smoking and tobacco/nicotine status: current every day tobacco/nicotine user (vape) Physical Exam Const: COMMON NORMALS: no acute distress, patient oriented x3 and no limitations GENERAL APPEARANCE: cooperative, comfortable and well developed ORIENTATION/CONSCIOUSNESS: Yes awake, Yes oriented to person, Yes oriented to place and Yes oriented to time HENMT: COMMON NORMALS: normocephalic, atraumatic and hearing grossly normal bilaterally HEAD & SCALP: normocephalic and atraumatic Eye: COMMON NORMALS: Equal, round and reactive pupils present, EOMs intact bilaterally and conjunctivae normal CONJUNCTIVA: Yes conjunctivae normal PUPIL: Yes Equal, round and reactive pupils present Neck/C-Spine: COMMON NORMALS: full ROM, supple and no JVD Resp: COMMON NORMALS: normal respiratory effort, No retractions, No use of accessory muscles and clear to auscultation bilaterally AUSCULTATION: clear to auscultation bilaterally Cardio: COMMON NORMALS: no JVD, regular rate, regular rhythm, No clicks present (Cardio), No murmurs present (Cardio) and No rub (Cardio) RATE: regular rate RHYTHM: regular rhythm Extremity: COMMON NORMALS: normal to inspection, full ROM and capillary refill normal Neuro: COMMON NORMALS: patient oriented x3, moves all extremities, no focal motor deficits and no sensory deficits noted SENSORIUM/ORIENTATION: Yes oriented to person, Yes oriented to place and Yes oriented to time Psych: COMMON NORMALS: mental status grossly normal and Normal thought process present THOUGHT PROCESS: Normal thought process present Skin: COMMON NORMALS: no rashes or lesions noted GENERAL SKIN EXAM: no rashes or lesions noted Course Vital Signs: Vital signs: Vital Signs Temperature 97.5 F L 02/26/25 14:14 Pulse Rate 95 02/26/25 14:14 Respiratory Rate 16 02/26/25 14:14 Blood Pressure 127/76 02/26/25 14:14 Pulse Oximetry 100 02/26/25 14:14 Oxygen Delivery Me thod Room Air 02/26/25 14:14 MDM - Chest Pain Medical Decision Making Patient presenting with chest pain shortness of breath referred by primary care's office. Normal physical exam, reports pertinent family history but no personal history other than tachycardia. Baseline troponin was negative. CBC and CMP otherwise unremarkable, EKG normal and chest x-ray normal. Heart score of 0. Do not suspect that this chest pain is cardiac in nature, prior to discharge notes complete resolution of her symptoms. Encouraged her to follow-up with primary care in the next 1 to 2 weeks for routine reevaluation and further outpatient cardiac management. She is given strict return precautions in the meantime, is stable for discharge home at this time. Lab Data 02/26/25 14:28 02/26/25 14:28 Radiology Impressions Chest X-Ray 02/26/25 14:05 IMPRESSION: 1. Negative chest. Laboratory Results WBC 7.96 10^3/uL (3.29-11.43) 02/26/25 14: RBC 4.52 10^6/uL (3.85-5.65) 02/26/25 14:28 Hgb 13.50 g/dL (11.27-16.99) 02/26/25 14:28 Hct 41.0 % (36-47) 02/26/25 14:28 MCV 90.7 fl (85-98) 02/26/25 14:28 MCH 29.9 pg (27-33) 02/26/25 14:28 MCHC 32.9 g/dL (30-55) 02/26/25 14:28 RDW 13.0 % (12.1-15.1) 02/26/25 14:28 Plt Count 407 10^3/cmm (157-399) H 02/26/25 14:28 MPV 9.0 fL (7.4-10.4) 02/26/25 14:28 Neut % (Auto) 67.3 % 02/26/25 14:28 Lymph % (Auto) 23.1 % 02/26/25 14:28 [place] % (Auto) 7.7 % 02/26/25 14:28 Eos % (Auto) 0.9 % 02/26/25 14:28 Baso % (Auto) 0.5 % 02/26/25 14:28 Neut # (Auto) 5.36 10^3/uL (1.8-7.7) 02/26/25 14:28 Lymph # (Auto) 1.8 10^3/uL (0.8-4.8) 02/26/25 14:28 [place] # (Auto) 0.6 10^3/uL (0.2-0.9) 02/26/25 14:28 Eos # (Auto) 0.1 10^3/uL (0.0-0.8) 02/26/25 14:28 Baso # (Auto) 0.0 10^3/uL (0.0-0.1) 02/26/25 14:28 Nucleated RBC % (auto) 0 % 02/26/25 14:28 Nucleated RBCs # 0.0 /100WBC 02/26/25 14:28 Sodium 138 mmol/L (136-145) 02/26/25 14:28 Potassium 3.9 mmol/L (3.5-5.1) 02/26/25 14:28 Chloride 102 mmol/L (98-107) 02/26/25 14:28 Carbon Dioxide 24 mmol/L (22-29) 02/26/25 14:28 Anion Gap 15.9 (5-19) 02/26/25 14:28 BUN 15 mg/dL (6-20) 02/26/25 14:28 Creatinine 0.8 mg/dL (0.5-0.9) 02/26/25 14:28 GFR Calculation 88.1 mL/min (90-130) L 02/26/25 14:28 Glucose 85 mg/dL (65-115) 02/26/25 14:28 Calculated Osmolality 286 mOsm/kg (285-295) 02/26/25 14:28 Calcium 9.4 mg/dL (8.5-10.5) 02/26/25 14:28 Total Bilirubin 0.3 mg/dL (0.15-1.2) 02/26/25 14:28 AST 15 U/L (0-32) 02/26/25 14:28 ALT 22 U/L (0-33) 02/26/25 14:28 Alkaline Phosphatase 49 U/L (35-105) 02/26/25 14:28 Troponin T Baseline < 6 ng/L (0-10) 02/26/25 14:28 Total Protein 7.5 g/dL (6.6-8.7) 02/26/25 14:28 Albumin 4.3 g/dL (3.5-5.2) 02/26/25 14:28 Globulin 3.2 g/dL (1.3-4.6) 02/26/25 14:28 All radiology interpretation(s) finalized by discharge Clincial Decision Support The following clinical decision support tools were used to aid in care of the patient HEART Score -> History: Slightly Suspicous, EKG: Normal, Age: Less than 45 yrs, Risk Factors: No Risk Factors Known, Troponin: Baseline Trop <16 ng/L. Resulting HEART Score: 0. Discharge Plan Discharge Patient Disposition: Home Clinical Impression: Chest pain, non-cardiac Condition: Stable Prescriptions: No Action thiamine HCl (vitamin B1) 100 mg tablet 100 mg PO DAILY Qty: 30 0RF ondansetron HCl 4 mg tablet 4 mg PO Q8H PRN (Reason: nausea and vomiting) Qty: 10 0RF venlafaxine 75 mg tablet extended release 24hr 75 mg PO DAILY Qty: 30 2RF aripiprazole [Abilify] 10 mg tablet 10 mg PO DAILY Qty: 30 2RF buspirone 10 mg tablet 10 mg PO BID Qty: 60 2RF trazodone 50 mg tablet 100 mg PO .HS PRN (Reason: insomnia) Qty: 60 2RF cholecalciferol (vitamin D3) 1,250 mcg (50,000 unit) capsule 50,000 unit PO ONCE Qty: 8 5RF Rx Instructions: take 1 tab weekly Ubrelvy 100 mg tablet 100 mg PO DAILY PRN (Reason: chronic migraine) Qty: 14 5RF Rx Instructions: do not exceed 200 mg a day ondansetron 8 mg tablet,disintegrating 8 mg PO Q6H Qty: 14 0RF Rx Instructions: Take 1/2-1 tab every 6 hours as needed for nausea and vomiting Discharge Orders: Discharge ED (Routine); Ordered 02/26/25 Ordered By: Stefan Johns Referrals: Gloria Paredes [Primary Care Provider] Patient Instructions: Patient Portal & Camila Instructions Activity Restrictions/Additional Instructions: Noncardiac Chest Pain Discharge Discharge Instructions: Noncardiac Chest Pain You were evaluated in the emergency department for chest pain. After careful assessment?including your medical history, physical exam, heart tracing (ECG), and blood tests for heart injury (troponin)?your risk of a serious heart problem is extremely low. Your HEART score is 0, which means your chance of having a heart attack or other major heart event in the next 30 days is less than 1%. What does noncardiac chest pain mean? Your chest pain is not caused by a heart problem. There are many other possible causes, such as muscle strain, acid reflux, anxiety, or other conditions. Most people with chest pain in the emergency department do not have a heart problem. What should you do next? - Follow up with your primary care provider (PCP): Schedule an appointment within the next 2 weeks, or as soon as possible, to discuss your symptoms and any further evaluation that may be needed. - Watch for new or worsening symptoms: Return to the emergency department or call 911 if you have any of the following: - Chest pain that is severe, lasts more than a few minutes, or comes with sweating, nausea, or trouble breathing - Pain that spreads to your arm, neck, jaw, or back - Feeling faint, very weak, or having a fast or irregular heartbeat - Coughing up blood, sudden shortness of breath, or severe pain with breathing Managing your symptoms: - If your pain is mild and related to movement or position, gentle stretching and [id number] pain medicine (like acetaminophen or ibuprofen) may help. Use these only as directed. - If you have symptoms of acid reflux (burning pain after eating, sour taste), try avoiding spicy or fatty foods, eating smaller meals, and not lying down right after eating. - If you feel anxious, talk to your PCP about ways to manage stress or anxiety. Next steps in your care: Your PCP may recommend further tests or treatments based on your symptoms and medical history. Most people with low-risk chest pain do not need more heart tests right away. Questions or concerns: If you have questions about your diagnosis or treatment, write them down and bring them to your follow-up appointment. Summary: - Your heart tests today were normal and your risk of a heart problem is very low. - Follow up with your PCP within 2 weeks. - Return to the emergency department if you have new or severe symptoms. Take care and let your healthcare team know if you need more help or information. Print Language: [place] Citizen Coding Level of Care Code ED Rec[employer] Deeds for Winsome Muñoz
[2025-02-26 15:13] LABS: Troponin(5th) Baseline < 6 ng/L (0-10)
[2025-02-26 15:36] VITALS: BP 119/85; PULSE 87; O2SAT 97
[2025-02-26 15:45] VITALS: BP 119/85; PULSE 86; O2SAT 98
== END 2025-02-26 15:53 | disposition home or self-care (01) ==
PROVIDERS: Family Medicine; Emergency Provider Physician Assistant; PCP Nurse Practitioner Adult Health
DX: R07.89 Other chest pain (principal); F17.290 Nicotine dependence, other tobacco product, uncomplicated
CPT/HCPCS: 36415; 71045; 80053; 84484; 85025; 93005; 99285

== ENCOUNTER 2025-05-05 07:06 | Emergency (ER) | payer OTHER, SELFPAY ==
--- OUTSIDE RECORDS SUMMARY | 2013-08-31 02:40 | XMS_ITS | Continuity of Care Document ---
Author Organization [facility]. Address [address] [place] [address] Phone Care Team Providers Care Music Manager Name Role Phone Unavailable Unavailable Unavailable Advance Directives Directive Yes / No Effective Date File Name No Information Encounters Encounter Description Practice Location Reason(s) For Visit Diagnoses Date Provider Providers Copied on Encounter [facility]., [address], [place], [address], [place] tel:[phone] [place] [facility] No Information 4 No Information Referring Provider: MARIO Macias, [address] [place], [address]. tel:[phone] Family History Family Member Type Diagnosis Age At Onset Problem (finding) No family history of Hy pertension Problem (finding) No family hist ory of Congenital Heart Disease Problem (finding) No family hist ory of Cardiomyopathy - hypertrophic Maternal Uncle Problem (finding) Sudden Maternal Grandmother Problem (finding) Arrhythmia Mother Problem (finding) SBE with valve replacement and pericarditis Problem (finding) No family hist ory of Diabetes Mellitus Problem (finding) No family hist ory of Cardiomyopathy - dilated Problem (finding) No family hist ory of Premature CAD Payers Payer name Insurance type Covered alliance party ID Authoryulissaa emerald(s) PRAKASH [facility] [id number] Social History Type Description Quantity Date Captured [...]
[2025-05-05 07:13] VITALS: BP 107/79; PULSE 80; RESP 18; TEMP 36.9; O2SAT 97; BMI 31.6
--- OUTSIDE RECORDS SUMMARY | 2025-05-05 07:13 | XMS_ITS | Data Portability ---
Author Organization [facility] Mukesh Cochran [facility] Address [address] [facility] [address] [place] [address] Assessment No assessment recorded. Plan of Treatment Reminders Order Date Submit Date Provider Last Modified By Organization Details Last Modified Time Details Appointments None recorded. Lab None recorded. Referral None recorded. Procedures None recorded. Surgeries None recorded. Imaging None recorded. Medication Orders ondansetron HCl (PF) 4 mg/2 mL injection solution 2024 [email or web address] Not available 15:17:30 ondansetron 4 mg disintegrat ing tablet 2024 025 [facility], [address], [place], [address], 14:42:18 amoxicillin 500 mg capsule 2024 025 [facility], [address], [place], [address], 05:01:33 prednisone 10 mg tablet 2024 025 [facility], [address], [place], [address], 14:36:37 triamcinolo ne acetonide 0.1 % topical cream 2023 024 [facility], [address], [place], [address], 4 16:39:54 prednisone 20 mg tablet 2023 025 [facility], [address], [place], [address], 13:39:42 Patient TargetsNo targets recorded. Patient Instructions Encounter Date Encounter Id Patient Instructions Last Modified By Organization Details Last Modified Time 10/21/2024 [id number] Increase fluids and follow up for worsening [email or web address] Not available 10/21/2024 13:52:48 Reason for Referral None Reported. Problems Name Problem SNOMED Code Status Onset Date Resolution Date Notes Provider Name and Address Organization Details Recorded Time Removal of sebaceous cyst Active 012 cyst removed from left eyelid; 01/08/20 12 11:08AM by Mariajose Real LPN, Office Visit; Promoted ; acuity set as *; Not Available [facility] 03:07:28 Problem Notes None recorded. Procedures Surgical History Date Name Laterality Status Provider Name and Address Organization Details Recorded Time Eye Surgery completed [facility] 02/17/2024 16:22:10 procedure on elbow completed [facility] 02/17/2024 16:22:17 Imaging Results None recorded. Procedure Notes None recorded. Medical Equipment None Reported. Allergies No known drug allergies Medications Name Sig Start Date Stop Date Status Note LastModified by Organization Details LastModified Time amoxicill in 500 mg capsule Take 1 capsule every 8 hours by oral route with meal(s) for 10 days. 11/07 completed Not Available Not Available Not Available venlafaxi ne ER 37.5 mg capsule,e xtended release 24 hr TAKE 1 CAPSULE BY MOUTH ONCE DAILY active Not Available Not Available No t Available prednison e 10 mg tablet TAKE 2 TABLETS BY MOUTH ONCE DAILY FOR 4 DAYS AND 1 ONCE DAILY FOR 4 DAYS 03/31 completed Not Available Not Available Not Available trazodone 50 mg tablet TAKE 2 TABLETS BY MOUTH AT BEDTIME NEEDED FOR INSOMNIA active Not Available Not Available No t Available hydrocodo ne 5 mg-acetam inophen 325 mg tablet TAKE 1 TABLET BY MOUTH EVERY 6 HOURS 03/31 completed Not Available Not Available Not Available promethaz ine 25 mg rectal supposito ry INSERT 1 SUPPOSIT ORY RECTALLY EVERY 6 HOURS NEEDED FOR NAUSEA AND VOMITING 03/31 completed Not Available Not Available Not Available prednison e 20 mg tablet TAKE 1 TABLET BY MOUTH ONCE DAILY FOR 5 DAYS 10/21 completed Not Available Not Available Not Available triamcino lone acetonide 0.1 % topical cream APPLY A THIN LAYER TO THE AFFECTED AREA TOPICALL Y TWICE DAILY active Not Available Not Available No t Available ondansetr on 8 mg disintegr ating tablet DISSOLVE 1/2 TO 1 (ONE-FELICITAS F TO ONE) TABLET IN MOUTH EVERY 6 HOURS NEEDED FOR NAUSEA AND VOMITING active Not Available Not Available No t Available pantopraz ole 20 mg tablet,de layed release TAKE 2 TABLETS BY MOUTH ONCE DAILY active Not Available Not Available No t Available propranol ol 10 mg tablet TAKE 1 TABLET BY MOUTH TWICE DAILY 02/16 completed Not Available Not Available Not Available methocarb samir 750 mg tablet 02/16 completed Not Available Not Available Not Available trazodone 100 mg tablet TAKE 1 TABLET BY MOUTH ONCE DAILY active Not Available Not Available No t Available venlafaxi ne 37.5 mg tablet TAKE 1 TABLET BY MOUTH ONCE DAILY WITH FOOD active Not Available Not Available No t Available buspirone 10 mg tablet TAKE 1 TABLET BY MOUTH TWICE DAILY active Not Available Not Available No t Available ergocalci ferol (vitamin D2) 1,250 mcg (50,000 unit) capsule TAKE 1 CAPSULE BY MOUTH ONCE A WEEK active Not Available Not Available No t Available ibuprofen 600 mg tablet 02/16 completed Not Available Not Available Not Available ondansetr on 4 mg disintegr ating tablet Place 1 tablet every 4-6 hours by translin gual route as needed, for nausea/ vomiting . 2024 active Not Available Not Available Not Avai lable medroxypr ogesteron e 150 mg/mL intramusc ular syringe BRING TO OFFICE FOR ADMINIST RATION active Not Available Not Available No t Available aripipraz ole 10 mg tablet TAKE 1 TABLET BY MOUTH ONCE DAILY active Not Available Not Available No t Available vitamin B complex active Not Available Not Available Not Available Adderall daily 02/16 completed 0; Recorded 01/08/20 12 11:16AM by Mariajose Real LPN, Office Visit; Not Available Not Available Not Available Abilify active Not Available Not Avail able Not Available ondansetr on HCl (PF) 4 mg/2 mL injection solution Take 4 mg every day by injectio n route for 1 day. 2024 active Not Available Not Available Not Avai lable cholecalc iferol (vitamin D3) 1,250 mcg (50,000 unit) capsule TAKE 1 CAPSULE BY MOUTH ONCE A WEEK active Not Available Not Available No t Available venlafaxi ne ER 75 mg tablet,ex tended release 24 hr TAKE 1 TABLET BY MOUTH ONCE DAILY active Not Available Not Available No t Available Ubrelvy 100 mg tablet take 1-2 TABLETS BY MOUTH DAILY NEEDED FOR chronic migraine (not TO exceed 200mg PER DAY) active Not Available Not Available No t Available Vitals Date Recorded Body height Body mass index (BMI) Body weight Oxygen saturation Heart rate Respiratory rate Body temperature Systolic And Diastolic Provider Name and Address Organization Details Last Updated DateTime 5 165.1 cm 30.5 kg/m2 38945.8 g 97 % 95 /min 18 /min 98.1 [degF] 128/70 mm[Hg] ANDREWS OQUENDO [facility] 5 13:39:07 Date Recorded Body height Body mass index (BMI) Body weight Oxygen saturation Heart rate Respiratory rate Body temperature Systolic And Diastolic Provider Name and Address Organization Details Last Updated DateTime 4 165.1 cm 28.8 kg/m2 93748.4 8 g 98 % 85 /min 16 /min 98.5 [degF] 134/74 mm[Hg] Sharon Efrakamron [facility] 4 16:23:41 Date Recorded Body height Body mass index (BMI) Body weight Oxygen saturation Heart rate Body temperature Systolic And Diastolic Provider Name and Address Organization Details Last Updated DateTime 5 165.1 cm 33.6 kg/m2 70720.6 6 g 98 % 81 /min 98.5 [degF] 128/88 mm[Hg] Hedy Wang [facility] 14:39:32 Social History Question Answer Notes LastModified by Organizat ion Details LastModified Time Tobacco Smoking Status Current Every Day Smoker Sharon Awad [facility] [place] [facility] 02/17/2024 16:22:03 What Was The Date Of Your Most Recent Tobacco Screening? 03/31/2025 [email or web address] Information not available 03/31/2025 Sex: Unknown Functional Status None recorded. Mental Status None recorded. Family History Nothing Reported. Medical History No medical history recorded. Gynecological HistoryNo gynecological history recorded. Obstetrics History GPAL:G 0 P 0 0 0 0 Past Encounters Encounter ID Performer Location Encounter Start Date Encounter Closed Date Diagnosis/Indication Diagnosis SNOMED-CT Code Diagnosis ICD10 Code Diagnosis IMO Codes Diagnosis Note [id number] SUZANNE BELL MARTIAL ARTS INSTRUCTOR [facility] ([facility]) [address] [place] [phone] 02/17/2024 16:17:43 02/17/2024 16:43:28 Dry skin dermatitis 770602887 L85.3 Acute urticaria [id number] [id number] L50.9 Discused use of prednisone and topical ointment. May use zyrtec in the morning and benadryl at night. [id number] JAXON ZELAYA APRN [facility] ([facility]) [address] [place], [place] [address] 10/21/2024 13:31:02 10/22/2024 14:04:15 Bacterial sinusitis 822969626 J32.9 B96.89 [id number] CAMRON GONG [facility] ([facility]) [address] [place] [phone] 03/31/2025 14:04:16 04/01/2025 15:20:07 Nausea and vomiting 72162444 R11.2 [id number] Increase po fluids as tolerated. Use Zofran as prescribed . RTC with any new or worsening symptoms. Health Concerns Section Related Observation LastModified by Organization Detai ls LastModified Time None Recorded Concern Status LastModified by Organization Details LastModified Time None Recorded Advance Directives Directive None Recorded Payers Insurance Date Sequence Insurance Name Policy Number Policy Morales Covered Member ID Morales Member ID Guarantor Name 03/31/2025 1 ANA JAMESR FROM [employer] (EPO) Nas Haji [id number] Nas Macias Adithya Notes Date Note Type Note Provider Name and Address Organization Details Recorded Time 02/17/2024 text/html General Rash/Ski n LesionReported by PatientROS as noted in the HPI walk in patientpatient is here today for a rash on her inner right thigh that started when she woke up this morning and has just gotten bigger as the day went on. Patient said that it hayes and itches. has not taken or applied any meds to this. states she has hx of sensitive skin. no known new exposures. feels well otherwise SUZANNE BELL, [address], [address], [facility] 02/18/2024 09:45:29 10/21/2024 text/html ROS as noted in the HPI Patient c/o cough that's been going on for a couple weeks. She states that she's coughing so hard she feels like she could pass out. She feels hot but is not running a fever. Hurts to breathe. JAXON ZELAYA APRN [address] [place], [address], [facility] 10/21/2024 13:53:02 03/31/2025 text/html ROS as noted in the HPI walk inwoke this am nausea, vomiting, diarrhea. Patient has not taken anything for symptoms. Family had similar symptoms earlier this week. CALEB VASQUEZ, [facility] [address] [place], [address], [facility] 03/31/2025 14:44:20 OBGyn Episode No OBEpisode recorded.
--- OUTSIDE RECORDS SUMMARY | 2025-05-05 07:13 | XMS_ITS | Continuity of Care Document ---
Author Organization [facility], [facility] ([facility]) Address [address] [place] [address] Assessment No assessment recorded. Plan of Treatment Reminders Order Date Submit Date Provider Last Modified By Organization Details Last Modified Time Details Appointments None recorded. Lab None recorded. Referral None recorded. Procedures None recorded. Surgeries None recorded. Imaging None recorded. Medication Orders ondansetron HCl (PF) 4 mg/2 mL injection solution 2024 [email or web address] Not available 15:17:30 ondansetron 4 mg disintegrat ing tablet 2024 025 [facility], [address], [place], [address], 14:42:18 Patient TargetsNo targets recorded. Patient InstructionsNo instructions recorded. Reason for Referral None Reported. Problems Name Problem SNOMED Code Status Onset Date Resolution Date Notes Provider Name and Address Organization Details Recorded Time Removal of sebaceous cyst Active 012 cyst removed from left eyelid; 01/08/20 12 11:08AM by Mariajose Real LPN, Office Visit; Promoted ; acuity set as *; Not Available [facility] 3 03:07:28 Problem Notes None recorded. Procedures Surgical History Date Name Laterality Status Provider Name and Address Organization Details Recorded Time Eye Surgery completed [place] 16:22:10 [facility] 16:22:17 Imaging Results None recorded. Procedure [...] Updated DateTime 5 165.1 cm 33.6 kg/m2 89109.6 6 g 98 % 81 /min 98.5 [degF] 128/88 mm[Hg] Hedy Wang [facility] 5 14:39:32 Social History Question Answer Notes LastModified by Organizat ion Details LastModified Time Tobacco Smoking Status Current Every Day Smoker Sharon Awad cj, [facility] 02/17/2024 16:22:03 What Was The Date [...] ICD10 Code Diagnosis IMO Codes Diagnosis Note [id number] CAMRON GONG [facility] ([facility]) [address] [place] [address] 03/31/2025 14:04:16 04/01/2025 15:20:07 Nausea and vomiting 41238397 R11.2 [id number] Increase po fluids as tolerated. Use Zofran as prescribed . RTC with any new or worsening symptoms. Health Concerns Section Related Observation LastModified by Organization Detai ls LastModified Time None Recorded Concern Status LastModified by Organization Details LastModified Time None Recorded Payers Encounter Date Sequence Insurance Name Policy Number Policy Morales Covered Member ID Morales Member ID Guarantor Name 03/31/2025 1 [place] [employer] [employer] ([place]PO) Lexxie L Adithya [id number] Lexxie L Adithya Notes Date Note Type Note Provider Name and Address Organization Details Recorded Time 03/31/2025 text/html ROS as noted in the HPI walk inwoke this am nausea, vomiting, diarrhea. Patient has not taken anything for symptoms. Family had similar symptoms earlier this week. CAMRON GONG [address] [place] [address], [phone], [facility] 03/31/2025 14:44:20 OBGyn Episode No OBEpisode recorded.
--- NOTE | 2025-05-05 07:14 | ED_ITS ---
HPI - General Adult 2 General: Chief complaint: Nausea/Vomiting/Diarrhea Stated complaint: migraine Time Seen by Provider: 05/05/25 07:07 Source: patient Mode of arrival: ambulatory Limitations: no limitations History of Present Illness: 24-year-old female states she has been s ick over the last 3 days. States she has had nausea vomiting she states her whole family had the same symptoms. States she has a history of migraines and started having a migraine headache as well. States headaches and 8 out of 10. Denies any abdominal pain denies any fevers. Associated symptoms: Reports vomiting Related Data Previous Rx's ?Medication ?Instructions ?Recorded thiamine HCl (vitamin B1) 100 mg 100 mg PO DAILY #30 t abs 09/14/23 tablet cholecalciferol (vitamin D3) 1,250 50,000 unit PO ONCE #8 caps 09/19/23 mcg (50,000 unit) capsule ubrogepant 100 mg tablet (Ubrelvy) 100 mg PO DAILY PRN chronic 12/15/23 migraine #14 tabs aripiprazole 10 mg tablet (Abilify) 10 mg PO DAILY #30 tabs 05/22/24 buspirone 10 mg tablet 10 mg PO BID #60 tabs trazodone 50 mg tablet 100 mg (2 x 50 mg) PO .HS NC N 05/22/24 insomnia #60 tabs venlafaxine 75 mg tablet,extended 75 mg PO DAILY #30 t abs 05/22/24 release 24 hr ondansetron HCl 4 mg tablet 4 mg PO Q8H PRN nausea and 06/19/24 vomiting #10 tabs ondansetron 8 mg disintegrating 8 mg PO Q6H #14 tabs 0 07/26/24 tablet ondansetron 4 mg disintegrating 4 mg PO Q6H PRN nausea and 05/05/25 tablet vomiting #14 tabs Allergies Allergy/AdvReac Type Severity Reaction Status Date / Time No Known Allergies Allergy Verified 02/26/25 14:16 Review of Systems 2 GI: Reports: vomiting PFSH ED 2 PFSH: Medical History Psychiatric care Chronic migraine Methamphetamine use disorder, moderate, in sustained remission Alcohol use disorder, severe, in sustained remission DEEPAK (generalized anxiety disorder) Moderate major depression Concentration deficit Tachycardia Bipolar disorder Influenza B Positive test 08/04/2023 for influenza B Depression PTSD (post-traumatic stress disorder) Surgical History No pertinent past surgical history Social History Smoking and tobacco/nicotine status: current every day tobacco/nicotine user (vape) Physical Exam 2 Const: COMMON NORMALS: no acute distress, patient oriented x3 and healthy appearing HENMT: COMMON NORMALS: normocephalic and atraumatic HEAD & SCALP: n ormocephalic and atraumatic Neck/C-Spine: COMMON NORMALS: full ROM and supple Chest: COMMONS NORMALS: normal inspection of the chest Resp: COMMON NORMALS: normal respiratory effort Cardio: COMMON NORMALS: regular rate, regular rhythm and No murmurs present (Cardio) RATE: regular rate RHYTHM: regular rhythm GI: COMMON NORMALS: Normal to inspection, nondistended, normoactive bowel sounds present, Soft to palpation, non-tender and no masses PALPATION: Yes Soft to palpation Extremity: COMMON NORMALS: normal to inspection and full ROM Neuro: COMMON NORMALS: patient oriented x3, moves all extremities and no focal motor deficits Psych: COMMON NORMALS: mental status grossly normal, Normal thought process present and cooperative THOUGHT PROCESS: Normal thought process present Skin: COMMON NORMALS: no rashes or lesions noted and no wounds GENERAL SKIN EXAM: no rashes or lesions noted Course 2 Vital Signs: Vital signs: Vital Signs Temperature 98.5 F 05/05/25 07:13 Pulse Rate 77 05/05/25 07:30 Respiratory Rate 16 05/05/25 07:30 Blood Pressure 116/74 05/05/25 07:30 Pulse Oximetry 100 05/05/25 07:30 Oxygen Delivery Me thod Room Air 05/05/25 07:30 MDM - General Adult Medical Decision Making Patient presents rhythm nausea vomiting along with headache differential includes viral syndrome, meningitis subarachnoid hemorrhage. Patient has no signs of meningitis. No signs of subarachnoid hemorrhage likely has a migraine vomiting is likely from a viral syndrome lab work shows no significant abnormality she feels improved here after Reglan Benadryl Toradol and fluids she is stable for discharge we will prescribe Zofran follow-up PCP return if worsening Medical Records I reviewed the patient's medical records. Lab Data I reviewed the patient's lab results. 05/05/25 07:21 05/05/25 07:21 Laboratory Results WBC 3.91 10^3/uL (3.29-11.43) 05/05/25 07:21 RBC 5.03 10^6/uL (3.85-5.65) 05/05/25 07:21 Hgb 14.80 g/dL (11.27-16.99) 05/05/25 07:21 Hct 44.6 % (36-47) 05/05/25 07:21 MCV 88.7 fl (85-98) 05/05/25 07:21 MCH 29.4 pg (27-33) 05/05/25 07:21 MCHC 33.2 g/dL (30-55) 05/05/25 07:21 RDW 12.5 % (12.1-15.1) 05/05/25 07:21 Plt Count 268 10^3/cmm (157-399) 05/05/25 07:21 MPV 9.0 fL (7.4-10.4) 05/05/25 07:21 Neut % (Auto) 49.1 % 05/05/25 07:21 Lymph % (Auto) 35.5 % 05/05/25 07:21 [place] % (Auto) 11.0 % 05/05/25 07:21 Eos % (Auto) 3.3 % 05/05/25 07:21 Baso % (Auto) 0.8 % 05/05/25 07:21 Neut # (Auto) 1.92 10^3/uL (1.8-7.7) 05/05/25 07:21 Lymph # (Auto) 1.4 10^3/uL (0.8-4.8) 05/05/25 07:21 [place] # (Auto) 0.4 10^3/uL (0.2-0.9) 05/05/25 07:21 Eos # (Auto) 0.1 10^3/uL (0.0-0.8) 05/05/25 07:21 Baso # (Auto) 0.0 10^3/uL (0.0-0.1) 05/05/25 07:21 Nucleated RBC % (auto) 0 % 05/05/25 07:21 Nucleated RBCs # 0.0 /100WBC 05/05/25 07:21 Sodium 142 mmol/L (136-145) 05/05/25 07:21 Potassium 4.2 mmol/L (3.5-5.1) 05/05/25 07:21 Chloride 105 mmol/L (98-107) 05/05/25 07:21 Carbon Dioxide 25 mmol/L (22-29) 05/05/25 07:21 Anion Gap 16.2 (5-19) 05/05/25 07:21 BUN 9 mg/dL (6-20) 05/05/25 07:21 Creatinine 0.7 mg/dL (0.5-0.9) 05/05/25 07:21 GFR Calculation 102.8 mL/min (90-130) 05/05/25 07:21 Glucose 100 mg/dL (65-115) 05/05/25 07:21 Calculated Osmolality 293 mOsm/kg (285-295) 05/05/25 07:21 Calcium 9.7 mg/dL (8.5-10.5) 05/05/25 07:21 Total Bilirubin 0.3 mg/dL (0.15-1.2) 05/05/25 07:21 AST 17 U/L (0-32) 05/05/25 07:21 Alkaline Phosphatase 47 U/L (35-105) 05/05/25 07:21 Total Protein 7.9 g/dL (6.6-8.7) 05/05/25 07:21 Albumin 4.6 g/dL (3.5-5.2) 05/05/25 07:21 Globulin 3.3 g/dL (1.3-4.6) 05/05/25 07:21 Lipase 34 U/L (13-60) 05/05/25 07:21 All radiology interpretation(s) finalized by discharge Discharge Plan Discharge Patient Disposition: Home Clinical Impression: Headache, Vomiting Condition: Stable Prescriptions: New ondansetron 4 mg tablet,disintegrating 4 mg PO Q6H PRN (Reason: nausea and vomiting) Qty: 14 0RF No Action thiamine HCl (vitamin B1) 100 mg tablet 100 mg PO DAILY Qty: 30 0RF ondansetron HCl 4 mg tablet 4 mg PO Q8H PRN (Reason: nausea and vomiting) Qty: 10 0RF venlafaxine 75 mg tablet extended release 24hr 75 mg PO DAILY Qty: 30 2RF aripiprazole [Abilify] 10 mg tablet 10 mg PO DAILY Qty: 30 2RF buspirone 10 mg tablet 10 mg PO BID Qty: 60 2RF trazodone 50 mg tablet 100 mg PO .HS PRN (Reason: insomnia) Qty: 60 2RF cholecalciferol (vitamin D3) 1,250 mcg (50,000 unit) capsule 50,000 unit PO ONCE Qty: 8 5RF Rx Instructions: take 1 tab weekly Ubrelvy 100 mg tablet 100 mg PO DAILY PRN (Reason: chronic migraine) Qty: 14 5RF Rx Instructions: do not exceed 200 mg a day ondansetron 8 mg tablet,disintegrating 8 mg PO Q6H Qty: 14 0RF Rx Instructions: Take 1/2-1 tab every 6 hours as needed for nausea and vomiting Discharge Orders: Discharge ED (Routine); Ordered 05/05/25 Ordered By: Darryl Cook Referrals: Gloria Paredes [Primary Care Provider] Discharge Diet: Advance as tolerated Discharge Activity: Resume usual activity Patient Instructions: Acute Nausea and Vomiting (ED) Print Language: Macedonian Coding Level of Care Code ED At Risk Specialist for Winsome Muñoz
[2025-05-05] MEDS: diphenhydrAMINE 50 mg/mL SDV 1mL IVP (07:24)
[2025-05-05 07:25] LABS: Hematocrit 44.6 % (36-47); Hemoglobin 14.80 g/dL (11.27-16.99); Mean Corpuscular HGB Conc 33.2 g/dL (30-55); Mean Corpuscular Hemoglobin 29.4 pg (27-33); Mean Corpuscular Volume 88.7 fl (85-98); Nucleated Red Blood Cells % 0 %; Platelet Count 268 10^3/cmm (157-399); Red Blood Count 5.03 10^6/uL (3.85-5.65); White Blood Count 3.91 10^3/uL (3.29-11.43)
[2025-05-05] MEDS: metoclopramide 5 mg/mL SDV 2 mL 10 MG IVP (07:25)
[2025-05-05 07:30] VITALS: BP 116/74; PULSE 77; RESP 16; O2SAT 100
[2025-05-05 07:45] LABS: Alanine Aminotransferase 60 U/L (0-33); Albumin Level 4.6 g/dL (3.5-5.2); Alkaline Phosphatase 47 U/L (35-105); Anion Gap 16.2 (5-19); Aspartate Amino Transferase 17 U/L (0-32); Blood Urea Nitrogen 9 mg/dL (6-20); Calcium 9.7 mg/dL (8.5-10.5); Carbon Dioxide 25 mmol/L (22-29); Chloride 105 mmol/L (98-107); Globulin 3.3 g/dL (1.3-4.6); Glucose 100 mg/dL (65-115); Lipase 34 U/L (13-60); Osmolality Calculated 293 mOsm/kg (285-295); Potassium 4.2 mmol/L (3.5-5.1); Sodium 142 mmol/L (136-145); Total Protein 7.9 g/dL (6.6-8.7)
[2025-05-05 07:53] VITALS: BP 116/67; PULSE 74; O2SAT 100
== END 2025-05-05 08:01 | disposition home or self-care (01) ==
PROVIDERS: Emergency Provider Emergency Medicine; PCP Nurse Practitioner Adult Health
DX: R51.9 Headache, unspecified (principal); R11.10 Vomiting, unspecified; F17.290 Nicotine dependence, other tobacco product, uncomplicated
CPT/HCPCS: 36415; 80053; 83690; 85025; 96374; 96375; 99284; J1200; J1885; J2765; J7030

== ENCOUNTER 2025-05-08 21:09 | Emergency (ER) | payer OTHER, SELFPAY ==
--- OUTSIDE RECORDS SUMMARY | 2013-08-31 02:40 | XMS_ITS | Continuity of Care Document ---
Author Organization [facility]. Address [address] [place] [address] Phone Care Team Providers Care Systems Planner Name Role Phone Unavailable Unavailable Unavailable Advance Directives Directive Yes / No Effective Date File Name No Information Encounters Encounter Description Practice Location Reason(s) For Visit Diagnoses Date Provider Providers Copied on Encounter [facility], [address], [place], [address], [place] tel:[phone] [place] [facility] No Information 4 No Information Referring Provider: MARIO Macias, [address] [place], [address]. tel:[phone] Family History Family Member Type Diagnosis Age At Onset Mother Problem (finding) SBE with valve replacement and pericarditis Problem (finding) No family hist ory of Cardiomyopathy - dilated Problem (finding) No family hist ory of Congenital Heart Disease Problem (finding) No family history of Hy pertension Problem (finding) No family hist ory of Cardiomyopathy - hypertrophic Problem (finding) No family hist ory of Premature CAD Problem (finding) No family hist ory of Diabetes Mellitus Maternal Uncle Problem (finding) Sudden Maternal Grandmother Problem (finding) Arrhythmia Payers Payer name Insurance type Covered democrat ID Authornena corbin(s) PRAKASH [facility] INDEMNITY [id number] Social History Type Description Quantity Date Captured [...]
--- OUTSIDE RECORDS SUMMARY | 2025-05-08 21:18 | XMS_ITS | Continuity of Care Document ---
Author Organization [facility], [facility] ([facility]) Address [address] [place] [address] Assessment No assessment recorded. Plan of Treatment Reminders Order Date Submit Date Provider Last Modified By Organization Details Last Modified Time Details Appointments None recorded. Lab None recorded. Referral None recorded. Procedures None recorded. Surgeries None recorded. Imaging None recorded. Medication Orders ondansetron HCl (PF) 4 mg/2 mL injection solution 2024 [email or web address] Not available 15:17:30 ondansetron 4 mg disintegrat ing tablet [address]24 [address] [facility], [address], [place], [address], 14:42:18 Patient TargetsNo targets recorded. Patient InstructionsNo instructions recorded. Reason for Referral None Reported. Problems Name Problem SNOMED Code Status Onset Date Resolution Date Notes Provider Name and Address Organization Details Recorded Time Removal of sebaceous cyst Active 012 cyst removed from left eyelid; 01/08/20 12 11:08AM by Mariajose Real LPN, Office Visit; Promoted ; acuity set as *; Not Available [facility] 03:07:28 Problem Notes None recorded. Procedures Surgical History Date Name Laterality Status Provider Name and Address Organization Details Recorded Time [facility] Surgery [facility] 16:22:10 [facility] 16:22:17 Imaging Results None recorded. [...] Updated DateTime 5 165.1 cm 33.6 kg/m2 06600.6 6 g 98 % 81 /min 98.5 [degF] 128/88 mm[Hg] Hedy Wang [facility], L[facility]CAntonella 5 14:39:32 Social History Question Answer Notes LastModified by Organizat ion Details LastModified Time Tobacco Smoking Status Current Every Day Smoker Sharon Awad cj, [facility] 02/17/2024 16:22:03 What Was The Date [...] ICD10 Code Diagnosis IMO Codes Diagnosis Note [id number] CAMRON GONG [facility] ([facility]) [address] [place] [address] 03/31/2025 14:04:16 04/01/2025 15:20:07 Nausea and vomiting [id number] R11.2 [id number] Increase po fluids as tolerated. Use Zofran [...] Name 03/31/2025 1 [facility] [place] [facility] (EPO) Lexxie L Adithya [id number] 1 Lexxie L Adithya Notes Date Note Type Note Provider Name and Address Organization Details Recorded Time 03/31/2025 text/html ROS as noted in the HPI walk inwoke this am nausea, vomiting, diarrhea. Patient has not taken anything for symptoms. Family had similar symptoms earlier this week. CAMRON GONG [address] [place] [address], [phone], [facility] 03/31/2025 14:44:20 OBGyn Episode No OBEpisode recorded.
--- OUTSIDE RECORDS SUMMARY | 2025-05-08 21:18 | XMS_ITS | Data Portability ---
Author Organization [facility] Mukesh Cochran [facility] Address [address] [facility] [address] [place] [address] Assessment No assessment recorded. Plan of Treatment Reminders Order Date Submit Date Provider Last Modified By Organization Details Last Modified Time Details Appointments None recorded. Lab None recorded. Referral None recorded. Procedures None recorded. Surgeries None recorded. Imaging None recorded. Medication Orders ondansetron HCl (PF) 4 mg/2 mL injection solution 2024 025 [email or web address] Not available 15:17:30 ondansetron 4 mg disintegrat ing tablet 2024 025 [facility], [address], [place], [address], 14:42:18 amoxicillin 500 mg capsule 2024 025 [facility], [address], [place], [address], 05:01:33 prednisone 10 mg tablet 2024 025 [facility], [address], [place], [address], 14:36:37 triamcinolo ne acetonide 0.1 % topical cream 2023 024 [facility], [address], [place], [address], 4 16:39:54 prednisone 20 mg tablet 2023 025 [facility], [address], [place], [address], 13:39:42 Patient TargetsNo targets recorded. Patient Instructions Encounter Date Encounter Id Patient Instructions Last Modified By Organization Details Last Modified Time 10/21/2024 [id number] Increase fluids and follow up for worsening [...] ; acuity set as *; Not Available [facility] 03:07:28 Problem Notes None recorded. Procedures Surgical History Date Name Laterality Status Provider Name and Address Organization Details Recorded Time Eye Surgery completed [facility] L[facility]CAntonella 02/17/2024 16:22:10 procedure on elbow completed [facility] 02/17/2024 16:22:17 Imaging Results None recorded. [...] Updated DateTime 5 165.1 cm 30.5 kg/m2 69573.8 g 97 % 95 /min 18 /min 98.1 [degF] 128/70 mm[Hg] ANDREWS OQUENDO [facility] 5 13:39:07 Date Recorded Body height Body mass index (BMI) Body weight Oxygen saturation Heart rate Respiratory rate Body temperature Systolic And Diastolic Provider Name and Address Organization Details Last Updated DateTime 4 165.1 cm 28.8 kg/m2 88718.4 8 g 98 % 85 /min 16 /min 98.5 [degF] 134/74 mm[Hg] Sharon Efrakamron [facility] 4 16:23:41 Date Recorded Body height Body mass index (BMI) Body weight Oxygen saturation Heart rate Body temperature Systolic And Diastolic Provider Name and Address Organization Details Last Updated DateTime 5 165.1 cm 33.6 kg/m2 95091.6 6 g 98 % 81 /min 98.5 [degF] 128/88 mm[Hg] Hedy Wang [facility] 14:39:32 Social History Question Answer Notes LastModified by Organizat ion Details LastModified Time Tobacco Smoking Status Current Every Day Smoker Sharon Awad [facility] [place] [facility] 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 May use zyrtec in the morning and benadryl at night. [id number] JAXON ZELAYA APRN [facility] ([facility]) [address] [place], [place] [address] 10/21/2024 13:31:02 10/22/2024 14:04:15 Bacterial sinusitis [id number] J32.9 B96.89 [id number] CAMRON GONG [facility] ([facility]) [address] [place] [address] 03/31/2025 14:04:16 04/01/2025 15:20:07 Nausea and vomiting 96231436 R11.2 [id number] Increase po fluids as tolerated. Use Zofran [...] [facility] (EPO) Nas Haji [id number] 1 Nas Macias Adithya Notes Date Note [...] new exposures. feels well otherwise SUZANNE BELL, [address], [address], [facility] 02/18/2024 09:45:29 10/21/2024 text/html ROS as noted in the HPI Patient c/o cough that's been going on for a couple weeks. She states that she's coughing so hard she feels like she could pass out. She feels hot but is not running a fever. Hurts to breathe. JAXON ZELAYA APRN [address] [place], [address], [facility], L.LAntonellaC. 10/21/2024 13:53:02 03/31/2025 text/html ROS as noted in the HPI walk inwoke this am nausea, vomiting, diarrhea. Patient has not taken anything for symptoms. Family had similar symptoms earlier this week. CALEB VASQUEZ, [facility] [address] [place], [address], [facility] 03/31/2025 14:44:20 OBGyn Episode No OBEpisode recorded.
[2025-05-08 21:36] VITALS: BP 134/87; PULSE 98; RESP 18; TEMP 36.8; O2SAT 98; BMI 33.3
[2025-05-08 22:17] LABS: Glucose Urine UA Negative (Normal); Nitrate Urine Negative (Negative); Specific Gravity, Urine 1.022 (1.005-1.030)
[2025-05-08 22:22] LABS: Add Urine Microscopic? YES
== END 2025-05-08 23:44 | disposition left against medical advice (07) ==
PROVIDERS: Student in an Organized Health Care Education/Training Program; Emergency Provider Family Medicine; PCP Nurse Practitioner Adult Health
DX: Z01.89 Encounter for other specified special examinations (principal); Z53.21 Procedure and treatment not carried out due to patient leaving prior to being seen by health care provider
CPT/HCPCS: 81001

== ENCOUNTER 2025-05-09 08:58 | Emergency (ER) | payer OTHER, SELFPAY ==
[2025-05-09 09:12] VITALS: BP 124/83; PULSE 143; RESP 18; TEMP 36.9; O2SAT 95; BMI 33.3
--- NOTE | 2025-05-09 09:36 | W.ED.NAVMDI ---
HPI - Nausea/Vomiting/Diarrhea General: Chief complaint: Nausea/Vomiting/Diarrhea Stated complaint: NV Time Seen by Provider: 05/09/25 09:18 History of Present Illness: 24-year-old female presents emergency room complaining of persistent nausea vomiting over the last couple days most of the vomitus been bilious in nature. She has generalized abdominal discomfort. No diarrhea no hematochezia melena hematemesis or coffee-ground emesis she not had any fever sweats or chills. No dysuria urgency or frequency. Associated nausea: Yes Associated symtoms: Reports nausea; Denies chest pain or dysuria Related Data Home Medications ?Medication ?Instructions ?Recorded ?Confirmed cholecalciferol (vitamin D3) 1,250 50,000 unit PO Q7D 05/09/25 05/09/25 mcg (50,000 unit) capsule cholecalciferol (vitamin D3) 25 25 mcg PO DAILY 05/09/25 05/09/25 mcg (1,000 unit) tablet (Vitamin D3) medroxyprogesterone 150 mg/mL 150 mg IM .[id number] 05/09/25 05/09/25 intramuscular syringe pantoprazole 20 mg tablet,delayed 40 mg PO DAILY 05/09/25 05/09/25 release trazodone 100 mg tablet 100 mg PO BEDTIME PRN Insomnia 05/09/25 05/09/25 venlafaxine 37.5 mg tablet 37.5 mg PO DAILY 05/09/25 05/09/25 Previous Rx's ?Medication ?Instructions ?Recorded thiamine HCl (vitamin B1) 100 mg 100 mg PO DAILY #30 tabs 09/14/23 tablet ubrogepant 100 mg tablet (Ubrelvy) 100 mg PO DAILY PRN chronic 12/15/23 migraine #14 tabs aripiprazole 10 mg tablet (Abilify) 10 mg PO DAILY #30 tabs 05/22/24 buspirone 10 mg tablet 10 mg PO BID #60 tabs 05/22/24 ondansetron 4 mg disintegrating 4 mg PO Q6H PRN nausea and 05/05/25 tablet vomiting #14 tabs lorazepam 2 mg tablet (Ativan) 2 mg buccal Q6H PRN nausea and 05/09/25 vomiting #14 tabs Allergies Allergy/AdvReac Type Severity Reaction Status Date / Time No Known Allergies Allergy Verified 05/09/25 09:16 Review of Systems Const: Denies: fever(s) or chills Card: Denies: chest pain Resp: Denies: dyspnea GI: Reports: abdominal pain, nausea and vomiting; Denies: hematemesis, coffee ground emesis, diarrhea, hematochezia or melena : Denies: dysuria, urinary frequency or urinary urgency Musc: Denies: neck pain or back pain Skin/Breast: Denies: rash PFSH ED PFSH: Medical History Psychiatric care Chronic migraine Methamphetamine use disorder, moderate, in sustained remission Alcohol use disorder, severe, in sustained remission DEEPAK (generalized anxiety disorder) Moderate major depression Concentration deficit Tachycardia Bipolar disorder Influenza B Positive test 08/04/2023 for influenza B Depression PTSD (post-traumatic stress disorder) Surgical History No pertinent past surgical history Social History Smoking and tobacco/nicotine status: current every day tobacco/nicotine user (vape) Female Reproductive History: Date of last menstrual period: 05/09/25 Physical Exam Const: GENERAL APPEARANCE: cooperative ORIENTATION/CONSCIOUSNESS: Yes awake, Yes oriented to person, Yes oriented to place and Yes oriented to time HENMT: COMMON NORMALS: normocephalic, atraumatic and hearing grossly normal bilaterally HEAD & SCALP: normocephalic and atraumatic Resp: COMMON NORMALS: normal respiratory effort, No retractions, No use of accessory muscles and clear to auscultation bilaterally AUSCULTATION: clear to auscultation bilaterally Cardio: COMMON NORMALS: regular rate, regular rhythm and No murmurs present (Cardio) RATE: regular rate RHYTHM: regular rhythm GI: COMMON NORMALS: No hepatosplenomegaly present AUSCULTATION: Yes normoactive bowel sounds PALPATION: Yes Tenderness to palpation present (GI) (Diffuse tenderness no focal findings), No Guarding due to palpation present (GI) and Yes No hepatosplenomegaly present Extremity: COMMON NORMALS: normal to inspection, capillary refill normal, no clubbing, cyanosis or edema, no calf tenderness and no pedal edema Neuro: SENSORIUM/ORIENTATION: Yes oriented to person, Yes oriented to place and Yes oriented to time Skin: COMMON NORMALS: no rashes or lesions noted GENERAL SKIN EXAM: no rashes or lesions noted Course Vital Signs: Vital signs: Vital Signs Temperature 98.4 F 05/09/25 09:12 Pulse Rate 96 05/09/25 11:29 Respiratory Rate 18 05/09/25 09:42 Blood Pressure 133/89 05/09/25 11:29 Pulse Oximetry 100 05/09/25 11:29 Oxygen Delivery Me thod Room Air 05/09/25 09:42 MDM - Nausea/Vomiting/Diarrhea Medical Decision Making Medical decision making Social determinants: None I reviewed the patient's medical record. I reviewed the patient's current home meds. Alternate historians: None Differential diagnosis: Acute abdomen appendicitis hyperemesis cannabinoid pyelonephritis nephrolithiasis cystitis Lab Review: Labs reviewed on chart CBC unremarkable. Potassium slightly low at 3.4 ALT decreasing is at 37 today was previously in the 60s. Other laboratory test negative UA does not show any signs of infection does show signs of contamination urine negative Imaging: None Assessment of risk Level of risk: Moderate Hospitalization considerations: Consideration for further evaluation pending lab workup. If labs elevated may need further evaluation including CT. Low risk for hospitalization Reexamination: Repeat exam symptoms improved abdominal discomfort resolved. Assessment and plan: Suspect her symptoms are largely due to hyperemesis cannabinoid syndrome. She has a negative white count no signs of acute cystitis no significant hematuria suggestive of nephrolithiasis. Her abdominal exam is benign. She has had this for several days. Discussed role of THC products and precipitating the symptoms we will discharge her home with Ativan buccal 2 mg every 6 hours as needed. Encourage decreasing or changing mode of THC use Lab Data 05/09/25 09:32 05/09/25 09:32 Laboratory Results WBC 6.96 10^3/uL (3.29-11.43) 05/09/25 09:32 RBC 5.46 10^6/uL (3.85-5.65) 05/09/25 09:32 Hgb 16.00 g/dL (11.27-16.99) 05/09/25 09:32 Hct 45.3 % (36-47) 05/09/25 09:32 MCV 83.0 fl (85-98) L 05/09/25 09:32 MCH 29.3 pg (27-33) 05/09/25 09:32 MCHC 35.3 g/dL (30-55) 05/09/25 09:32 RDW 12.6 % (12.1-15.1) 05/09/25 09:32 Plt Count 337 10^3/cmm (157-399) 05/09/25 09:32 MPV 9.7 fL (7.4-10.4) 05/09/25 09:32 Lymph % (Auto) Not Reportable 05/09/25 09:32 Childress % (Auto) Not Reportable 05/09/25 09:32 Lymph # (Auto) Not Reportable 05/09/25 09:32 Childress # (Auto) Not Reportable 05/09/25 09:32 Total Counted 100 (0-100) 05/09/25 09:32 Atypical Lymphs % 15.0 % (0-5) H 05/09/25 09:32 Absolute Neutrophils 2.6 10^3/cmm (1.4-6.5) 05/09/25 09:32 Segmented Neutrophils 35 % 05/09/25 09:32 Band Neutrophils 3.0 % 05/09/25 09:32 Absolute Lymphocytes 3.8 10^3/cmm (1.2-3.4) H 05/09/25 09:32 Lymphocytes (Manual) 39 % 05/09/25 09:32 Monocytes (Manual) 8.0 % 05/09/25 09:32 Absolute Monocytes 0.6 10^3/cmm (0.1-0.6) 05/09/25 09:32 Eosinophils (Manual) 0 % 05/09/25 09:32 Absolute Eosinophils 0.0 10^3/cmm (0.0-0.7) 05/09/25 09:32 Basophils (Manual) 0.0 % 05/09/25 09:32 Absolute Basophils 0.0 10^3/cmm (0.0-0.2) 05/09/25 09:32 Platelet Estimate Normal (Normal) 05/09/25 09:32 Sodium 142 mmol/L (136-145) 05/09/25 09:32 Potassium 3.4 mmol/L (3.5-5.1) L 05/09/25 09:32 Chloride 104 mmol/L (98-107) 05/09/25 09:32 Carbon Dioxide 23 mmol/L (22-29) 05/09/25 09:32 Anion Gap 18.4 (5-19) 05/09/25 09:32 BUN 8 mg/dL (6-20) 05/09/25 09:32 Creatinine 0.6 mg/dL (0.5-0.9) 05/09/25 09:32 GFR Calculation 122.8 mL/min (90-130) 05/09/25 09:32 Glucose 99 mg/dL (65-115) 05/09/25 09:32 Calculated Osmolality 292 mOsm/kg (285-295) 05/09/25 09:32 Calcium 9.8 mg/dL (8.5-10.5) 05/09/25 09:32 Total Bilirubin 0.6 mg/dL (0.15-1.2) 05/09/25 09:32 AST 21 U/L (0-32) 05/09/25 09:32 ALT 37 U/L (0-33) H 05/09/25 09:32 Alkaline Phosphatase 50 U/L (35-105) 05/09/25 09:32 Total Protein 8.5 g/dL (6.6-8.7) 05/09/25 09:32 Albumin 4.8 g/dL (3.5-5.2) 05/09/25 09:32 Globulin 3.7 g/dL (1.3-4.6) 05/09/25 09:32 HCG, Qual Negative (Negative) 05/09/25 09:32 No radiology studies performed this visit Discharge Plan Discharge Patient Disposition: Home Clinical Impression: Cannabinoid hyperemesis syndrome Condition: Stable Prescriptions: New lorazepam [Ativan] 2 mg tablet 2 mg buccal Q6H PRN (Reason: nausea and vomiting) Qty: 14 0RF No Action thiamine HCl (vitamin B1) 100 mg tablet 100 mg PO DAILY Qty: 30 0RF aripiprazole [Abilify] 10 mg tablet 10 mg PO DAILY Qty: 30 2RF buspirone 10 mg tablet 10 mg PO BID Qty: 60 2RF Ubrelvy 100 mg tablet 100 mg PO DAILY PRN (Reason: chronic migraine) Qty: 14 5RF Rx Instructions: do not exceed 200 mg a day trazodone 100 mg tablet 100 mg PO BEDTIME PRN (Reason: Insomnia) venlafaxine 37.5 mg tablet 37.5 mg PO DAILY cholecalciferol (vitamin D3) [Vitamin D3] 25 mcg (1,000 unit) Tablet 25 mcg PO DAILY cholecalciferol (vitamin D3) 1,250 mcg (50,000 unit) capsule 50,000 unit PO Q7D Rx Instructions: Tuesday' pantoprazole 20 mg tablet,delayed release (DR/EC) 40 mg PO DAILY medroxyprogesterone 150 mg/mL syringe 150 mg IM .[id number] ondansetron 4 mg tablet,disintegrating 4 mg PO Q6H PRN (Reason: nausea and vomiting) Qty: 14 0RF Discharge Orders: Discharge ED (Routine); Ordered 05/09/25 Ordered By: Chris Noel Referrals: Gloria Paredes [Primary Care Provider] Discharge Diet: Full LIquid Discharge Activity: Increase activity as tolerated Patient Instructions: Opioid Safety, Pain Management, Patient Portal & Camila Instructions Activity Restrictions/Additional Instructions: Thank you for choosing [facility] for your healthcare needs today. It is very important that you follow up as instructed or that you return to the Emergency Department should you have concerns or if your condition changes or worsens in any way. Emergency department visits are focused on emergent conditions, in some cases you may require further evaluation on an outpatient basis. You were seen in the emergency room with complaints of persistent nausea vomiting generalized abdominal discomfort your laboratory test did not show any clinically significant abnormalities showed a slightly low potassium and a very slight increase in one of your liver enzyme. Liver enzymes have been slightly elevated in the past and are decreasing now. Suspect your symptoms you were experiencing are related to THC use. Recommend decreasing frequency of use or using products with a lower potency. You can use Ativan as needed to help with nausea and vomiting if you have recurrence of symptoms. (Please note that included in your discharge packet is information concerning opioid safety and pain management. This information is given to all patients were discharged from the ER regardless of their discharge diagnosis or the medicines they usually take or are prescribed.) Print Language: Yi Coding Level of Care Code ED Associate Professor Of Education for Winsome Muñoz
[2025-05-09] MEDS: LORazepam 2 mg/mL INJ 1 mL 1 MG IVP (09:39)
[2025-05-09] MEDS: haloperidol inj 5 mg/mL INJ 1 mL 2.5 MG IVP (09:41)
[2025-05-09 09:42] VITALS: BP 114/101; PULSE 112; RESP 18; O2SAT 99
[2025-05-09 10:01] LABS: Hematocrit 45.3 % (36-47); Hemoglobin 16.00 g/dL (11.27-16.99); Mean Corpuscular HGB Conc 35.3 g/dL (30-55); Mean Corpuscular Hemoglobin 29.3 pg (27-33); Mean Corpuscular Volume 83.0 fl (85-98); Platelet Count 337 10^3/cmm (157-399); Red Blood Count 5.46 10^6/uL (3.85-5.65); White Blood Count 6.96 10^3/uL (3.29-11.43)
[2025-05-09 10:02] LABS: HCG, Serum Qual Negative (Negative)
[2025-05-09 10:10] LABS: Alanine Aminotransferase 37 U/L (0-33); Albumin Level 4.8 g/dL (3.5-5.2); Alkaline Phosphatase 50 U/L (35-105); Aspartate Amino Transferase 21 U/L (0-32); Blood Urea Nitrogen 8 mg/dL (6-20); Calcium 9.8 mg/dL (8.5-10.5); Carbon Dioxide 23 mmol/L (22-29); Chloride 104 mmol/L (98-107); Globulin 3.7 g/dL (1.3-4.6); Glucose 99 mg/dL (65-115); Osmolality Calculated 292 mOsm/kg (285-295); Sodium 142 mmol/L (136-145); Total Protein 8.5 g/dL (6.6-8.7)
[2025-05-09 10:13] LABS: Anion Gap 18.4 (5-19); Potassium 3.4 mmol/L (3.5-5.1)
[2025-05-09 10:31] LABS: Slide Review Slide Review Perform
[2025-05-09 10:35] LABS: Absolute Segmented Neutrophil 2.4 10/cmm (1.6-7.1); Atypical Lymphs 15.0 % (0-5); Band Neutrophils Absolute 0.2 10^3/cmm (0.0-1.2); Total Cells Counted 100 (0-100)
[2025-05-09 11:29] VITALS: BP 133/89; PULSE 96; O2SAT 100
== END 2025-05-09 11:33 | disposition home or self-care (01) ==
PROVIDERS: Emergency Provider Family Medicine; PCP Nurse Practitioner Adult Health
DX: R11.16 Cannabis hyperemesis syndrome (principal); F17.290 Nicotine dependence, other tobacco product, uncomplicated
CPT/HCPCS: 36415; 80053; 84703; 85007; 85025; 96374; 96375; 99284; J1630; J2060; J7030

== ENCOUNTER 2025-05-12 04:16 | Emergency (ER) | payer OTHER, SELFPAY ==
--- OUTSIDE RECORDS SUMMARY | 2013-08-31 02:40 | XMS_ITS | Continuity of Care Document ---
Author Organization [facility]. 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 tel:[phone] Family History Family Member Type Diagnosis Age At Onset Problem (finding) No family hist ory of Premature CAD Maternal Grandmother Problem (finding) Arrhythmia Maternal Uncle Problem (finding) Sudden Problem (finding) No family hist ory of Diabetes Mellitus Mother Problem (finding) SBE with valve replacement and pericarditis Problem (finding) No family hist ory of Cardiomyopathy - hypertrophic Problem (finding) No family hist ory of Cardiomyopathy - dilated Problem (finding) No family hist ory of Congenital Heart Disease Problem (finding) No family history of Hy pertension Payers Payer name Insurance type Covered constitution party ID Authornena corbin(s) PRAKASH [facility] INDEMNITY [id number] Social History Type Description Quantity Date Captured Comments Alcohol Use Details Unknown Caffeine Use Details Unknown Tobacco Use Status No Information Smoking Status No Information Sex Female Vital Signs Date / Time: Height Weight BMI Pulse Rate Blood Pressure Temperature Respiratory Rate Body Surface Area Head Circumference BMI percentile Pulse Ox Inhaled Ox 9:39 AM 61.00 in 44.906 kg (99.00 lbs) 18.8 0 kg/m eter (2) 115 /min 18 /min 1.39 meter(2) 50 Chief Complaint And Reason For Visit No Information History Of Present Illness Encounter Date Complaint History Of Prese nt Illness No Information Instructions Date Instruction Additional Infor mation No Information Assessments Type Assessment Date No Information
[2025-05-12 04:21] VITALS: BP 115/88; PULSE 116; RESP 20; TEMP 37; O2SAT 97; BMI 31.6
--- OUTSIDE RECORDS SUMMARY | 2025-05-12 04:21 | XMS_ITS | Continuity of Care Document ---
Author Organization [facility], [facility] ([facility]) Address [address] [place] [address] Assessment No assessment recorded. Plan of Treatment Reminders Order Date Submit Date Provider Last Modified By Organization Details Last Modified Time Details Appointments None recorded. Lab None recorded. Referral None recorded. Procedures None recorded. Surgeries None recorded. Imaging None recorded. Medication Orders ondansetron HCl (PF) 4 mg/2 mL injection solution 2024 [email or web address] Not available 15:17:30 ondansetron 4 mg disintegrat ing tablet 2024 025 [facility], [address], [place], [address], 14:42:18 Patient TargetsNo targets recorded. Patient InstructionsNo instructions recorded. Reason for Referral None Reported. Problems Name Problem SNOMED Code Status Onset Date Resolution Date Notes Provider Name and Address Organization Details Recorded Time Removal of sebaceous cyst Active 012 cyst removed from left eyelid; 01/08/20 12 11:08AM by Mariajose Real LPN, Office Visit; Promoted ; acuity set as *; Not Available [facility] 3 03:07:28 Problem Notes None recorded. Procedures Surgical History Date Name Laterality Status Provider Name and Address Organization Details Recorded Time [facility] 16:22:10 [facility] 16:22:17 Imaging Results None [...] Updated DateTime 5 165.1 cm 33.6 kg/m2 30872.6 6 g 98 % 81 /min 98.5 [degF] 128/88 mm[Hg] Hedy Wang [facility], L.L[facility]CAntonella 5 14:39:32 Social History Question Answer Notes LastModified by Organizat ion Details LastModified Time Tobacco Smoking Status Current Every Day Smoker Sharon Awad cj, [facility] 02/17/2024 16:22:03 What Was The [...] ICD10 Code Diagnosis IMO Codes Diagnosis Note [id number] CAMRON GONG [facility] ([facility]) [address] [place] [address] 03/31/2025 14:04:16 04/01/2025 15:20:07 Nausea and vomiting [id number] R11.2 [id number] Increase po fluids as tolerated. Use Zofran [...] Name 03/31/2025 1 [facility] - [facility]ETTER [facility] [place] [employer] [employer] (EPO) Lexxie L Adithya [id number] 1 Lexxie L Adithya Notes Date Note Type Note Provider Name and Address Organization Details Recorded Time 03/31/2025 text/html ROS as noted in the HPI walk inwoke this am nausea, vomiting, diarrhea. Patient has not taken anything for symptoms. Family had similar symptoms earlier this week. CAMRON GONG [address] [place] [address], [phone], [facility] 03/31/2025 14:44:20 OBGyn Episode No OBEpisode recorded.
--- OUTSIDE RECORDS SUMMARY | 2025-05-12 04:21 | XMS_ITS | Data Portability ---
Author Organization [facility] Mukesh Cochran [facility] Address [address] [facility] [address] [place] [address] Assessment No assessment recorded. Plan of Treatment [...] 4 mg disintegrat ing tablet 2024 025 [facility], [address], [place], [address], 14:42:18 amoxicillin 500 mg capsule 2024 025 [facility], [address], [place], [address], 05:01:33 prednisone 10 mg tablet 2024 025 [facility], [address], [place], [address], 14:36:37 triamcinolo ne acetonide 0.1 % topical cream 2023 024 [facility], [address], [place], [address], 4 16:39:54 prednisone 20 mg tablet 2023 025 [facility], [address], [place], [address], 13:39:42 Patient TargetsNo targets recorded. Patient Instructions Encounter Date Encounter Id Patient Instructions Last Modified By Organization Details Last Modified Time 10/21/2024 [id number] Increase fluids and follow up for worsening [...] ; acuity set as *; Not Available [facility] 03:07:28 Problem Notes None recorded. Procedures Surgical History Date Name Laterality Status Provider Name and Address Organization Details Recorded Time Eye Surgery completed [facility] 02/17/2024 16:22:10 procedure on elbow completed [facility] 02/17/2024 16:22:17 Imaging Results None recorded. [...] Updated DateTime 5 165.1 cm 30.5 kg/m2 71332.8 g 97 % 95 /min 18 /min 98.1 [degF] 128/70 mm[Hg] ANDREWS OQUENDO [facility] 5 13:39:07 Date Recorded Body height Body mass index (BMI) Body weight Oxygen saturation Heart rate Respiratory rate Body temperature Systolic And Diastolic Provider Name and Address Organization Details Last Updated DateTime 4 165.1 cm 28.8 kg/m2 06376.4 8 g 98 % 85 /min 16 /min 98.5 [degF] 134/74 mm[Hg] Sharon Efrakamron [facility] 4 16:23:41 Date Recorded Body height Body mass index (BMI) Body weight Oxygen saturation Heart rate Body temperature Systolic And Diastolic Provider Name and Address Organization Details Last Updated DateTime 5 165.1 cm 33.6 kg/m2 10586.6 6 g 98 % 81 /min 98.5 [degF] 128/88 mm[Hg] Hedy Wang [facility] 14:39:32 Social History Question Answer Notes LastModified by Organizat ion Details LastModified Time Tobacco Smoking Status Current Every Day Smoker Sharon Awad [facility] [place] [facility] 02/17/2024 16:22:03 What Was The Date [...] ICD10 Code Diagnosis IMO Codes Diagnosis Note [id number] SUZANNE BELL BLIND INSTALLER [facility] ([facility]) [address] [place] [phone] 02/17/2024 16:17:43 02/17/2024 16:43:28 Dry skin dermatitis [id number] L85.3 Acute urticaria [id number] L50.9 Discused use of prednisone and topical ointment. May use zyrtec in the morning and benadryl at night. [id number] JAXON ZELAYA APRN [facility] ([facility]) [address] [place], [place] [address] 10/21/2024 13:31:02 10/22/2024 14:04:15 Bacterial sinusitis [id number] J32.9 B96.89 [id number] CAMRON GONG [facility] ([facility]) [address] [place] [phone] 03/31/2025 14:04:16 04/01/2025 15:20:07 Nausea and vomiting [id number] R11.2 [id number] Increase po fluids as tolerated. Use Zofran [...] HOME STATE HEATLH PLAN (EPO) Nas Haji [id number] Nas Macias Adithya Notes Date Note [...] new exposures. feels well otherwise SUZANNE BELL, [address], [address], [facility] 02/18/2024 09:45:29 10/21/2024 text/html ROS as noted in the HPI Patient c/o cough that's been going on for a couple weeks. She states that she's coughing so hard she feels like she could pass out. She feels hot but is not running a fever. Hurts to breathe. JAXON ZELAYA APRN [address] [place], [address], [facility] L[facility]LAntonellaC. 10/21/2024 13:53:02 03/31/2025 text/html ROS as noted in the HPI walk inwoke this am nausea, vomiting, diarrhea. Patient has not taken anything for symptoms. Family had similar symptoms earlier this week. CALEB VASQUEZ, [facility] [address] [place], [address], [facility] 03/31/2025 14:44:20 OBGyn Episode No OBEpisode recorded.
--- NOTE | 2025-05-12 04:47 | ECG_ITS ---
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 Measurements Intervals Alice Rate: 122 P: 64 MD: 128 QRS: 74 QRSD: 96 T: -1 QT: 338 QTc: 482 Interpretive Statements SINUS TACHYCARDIA INCOMPLETE RIGHT BUNDLE BRANCH BLOCK [90+ ms QRS DURATION, TERMINAL R IN V1/V2, 40+ ms S IN I/aVL/V4/V5/V6] NONSPECIFIC T-WAVE ABNORMALITY Compared to ECG 02/26/2025 15:26:12 NO SIGNIFICANT CHANGE Electronically Signed On 05-15-2025 22:20:13 SECONDARY SPECIAL EDUCATION TEACHER by Eric Adame M.D. [email or web address] [id number]
--- NOTE | 2025-05-12 04:47 | W.ED.PSYCHS ---
HPI - Psych General: Chief Complaint: Psychiatric Symptoms Stated Complaint: SI Time Seen by Provider: 05/12/25 04:23 History of Present Illness: 24-year-old female with a history of depression, anxiety. She says that she woke up around 2 AM this morning, her boyfriend was sleeping. She thought herself it would be easy to go in the bathroom and kill herself. This worried her and scared her. She came in for evaluation. She states that 1 month ago, a new physician changed her medications, and she has not done well with that. She was here in the ER 2 days ago for vomiting. She is still having some problems with this, but denies fever, diarrhea, other illness. She believes it is related to stress. Related Data Home Medications ?Medication ?Instructions ?Recorded ?Confirmed cholecalciferol (vitamin D3) 1,250 50,000 unit PO Q7D 05/09/25 05/12/25 mcg (50,000 unit) capsule cholecalciferol (vitamin D3) 25 25 mcg PO DAILY 05/09/25 05/12/25 mcg (1,000 unit) tablet (Vitamin D3) medroxyprogesterone 150 mg/mL 150 mg IM .[id number] 05/09/25 05/12/25 intramuscular syringe pantoprazole 20 mg tablet,delayed 40 mg PO DAILY 05/09/25 05/12/25 release trazodone 100 mg tablet 100 mg PO BEDTIME PRN Insomnia 05/09/25 05/12/25 venlafaxine 37.5 mg tablet 37.5 mg PO DAILY 05/09/25 05/12/25 Previous Rx's ?Medication ?Instructions ?Recorded thiamine HCl (vitamin B1) 100 mg 100 mg PO DAILY #30 tabs 09/14/23 tablet ubrogepant 100 mg tablet (Ubrelvy) 100 mg PO DAILY PRN chronic 12/15/23 migraine #14 tabs aripiprazole 10 mg tablet (Abilify) 10 mg PO DAILY #30 tabs 05/22/24 buspirone 10 mg tablet 10 mg PO BID #60 tabs 05/22/24 ondansetron 4 mg disintegrating 4 mg PO Q6H PRN nausea and 05/05/25 tablet vomiting #14 tabs lorazepam 2 mg tablet (Ativan) 2 mg buccal Q6H PRN nausea and 05/09/25 vomiting #14 tabs Allergies Allergy/AdvReac Type Severity Reaction Status Date / Time No Known Allergies Allergy Verified 05/09/25 09:16 PFSH ED PFSH: Medical History Psychiatric care Chronic migraine Methamphetamine use disorder, moderate, in sustained remission Alcohol use disorder, severe, in sustained remission DEEPAK (generalized anxiety disorder) Moderate major depression Concentration deficit Tachycardia Bipolar disorder Influenza B Positive test 08/04/2023 for influenza B Depression PTSD (post-traumatic stress disorder) Surgical History No pertinent past surgical history Social History Smoking and tobacco/nicotine status: current every day tobacco/nicotine user (vape) Physical Exam Const: COMMON NORMALS: no acute distress GENERAL APPEARANCE: cooperative; not ill appearing and not frail appearing HENMT: COMMON NORMALS: normocephalic, atraumatic and Normal external nose present HEAD & SCALP: normocephalic and atraumatic FACE & SINUS: normal facial exam and face symmetric NOSE: Normal external nose present Eye: COMMON NORMALS: Equal, round and reactive pupils present and EOMs intact bilaterally PUPIL: Yes Equal, round and reactive pupils present Neck/C-Spine: GENERAL: Yes trachea midline Chest: CHEST: Yes Symmetrical chest wall rise Resp: COMMON NORMALS: normal respiratory effort, No retractions, No use of accessory muscles and clear to auscultation bilaterally AUSCULTATION: clear to auscultation bilaterally Cardio: COMMON NORMALS: regular rate and regular rhythm RATE: regular rate RHYTHM: regular rhythm GI: COMMON NORMALS: Normal to inspection, nondistended, normoactive bowel sounds present Extremity: COMMON NORMALS: no pedal edema Neuro: DIAN COMA SCALE: document GCS findings Dian coma scale eye opening: Spontaneous [place] coma scale verbal response: Orientated Dian coma scale motor response: Obey commands Dian coma scale total score: 15 SENSORY EXAM: Yes extremities (intact) Psych: COMMON NORMALS: speech normal ACTIVITY/MOTOR BEHAVIOR: Yes appropriate eye contact SPEECH: Yes normal speech MOOD & AFFECT: Yes depressed mood, Yes anxious and Yes tearful THOUGHT CONTENT: Yes Suicidality present Skin: COMMON NORMALS: no rashes or lesions noted GENERAL SKIN EXAM: no rashes or lesions noted Course Vital Signs: Vital signs: Vital Signs Temperature 98.6 F 05/12/25 04:21 Pulse Rate 97 05/12/25 08:39 Respiratory Rate 16 05/12/25 08:39 Blood Pressure 122/78 05/12/25 08:39 Pulse Oximetry 99 05/12/25 08:39 MDM - Psych Medical Decision Making Medically the patient appears stable. We currently do not have a bed available at our facility. She is voluntary at this point. We will attempt transfer to an appropriate facility. Lab Data 05/12/25 04:57 05/12/25 04:57 Laboratory Results WBC 5.62 10^3/uL (3.29-11.43) 05/12/25 04:57 RBC 4.71 10^6/uL (3.85-5.65) 05/12/25 04:57 Hgb 13.80 g/dL (11.27-16.99) 05/12/25 04:57 Hct 41.2 % (36-47) 05/12/25 04:57 MCV 87.5 fl (85-98) 05/12/25 04:57 MCH 29.3 pg (27-33) 05/12/25 04:57 MCHC 33.5 g/dL (30-55) 05/12/25 04:57 RDW 12.5 % (12.1-15.1) 05/12/25 04:57 Plt Count 232 10^3/cmm (157-399) 05/12/25 04:57 MPV 9.1 fL (7.4-10.4) 05/12/25 04:57 Neut % (Auto) 45.6 % 05/12/25 04:57 Lymph % (Auto) 44.1 % 05/12/25 04:57 [place] % (Auto) 8.2 % 05/12/25 04:57 Eos % (Auto) 1.2 % 05/12/25 04:57 Baso % (Auto) 0.7 % 05/12/25 04:57 Neut # (Auto) 2.56 10^3/uL (1.8-7.7) 05/12/25 04:57 Lymph # (Auto) 2.5 10^3/uL (0.8-4.8) 05/12/25 04:57 [place]ade # (Auto) 0.5 10^3/uL (0.2-0.9) 05/12/25 04:57 Eos # (Auto) 0.1 10^3/uL (0.0-0.8) 05/12/25 04:57 Baso # (Auto) 0.0 10^3/uL (0.0-0.1) 05/12/25 04:57 Nucleated RBC % (auto) 0 % 05/12/25 04:57 Nucleated RBCs # 0.0 /100WBC 05/12/25 04:57 Sodium 139 mmol/L (136-145) 05/12/25 04:57 Potassium 3.7 mmol/L (3.5-5.1) 05/12/25 04:57 Chloride 104 mmol/L (98-107) 05/12/25 04:57 Carbon Dioxide 25 mmol/L (22-29) 05/12/25 04:57 Anion Gap 13.7 (5-19) 05/12/25 04:57 BUN 9 mg/dL (6-20) 05/12/25 04:57 Creatinine 0.8 mg/dL (0.5-0.9) 05/12/25 04:57 GFR Calculation 88.1 mL/min (90-130) L 05/12/25 04:57 Glucose 112 mg/dL (65-115) 05/12/25 04:57 Calculated Osmolality 287 mOsm/kg (285-295) 05/12/25 04:57 Calcium 9.4 mg/dL (8.5-10.5) 05/12/25 04:57 Total Bilirubin 0.3 mg/dL (0.15-1.2) 05/12/25 04:57 AST 23 U/L (0-32) 05/12/25 04:57 ALT 31 U/L (0-33) 05/12/25 04:57 Alkaline Phosphatase 54 U/L (35-105) 05/12/25 04:57 Total Protein 7.2 g/dL (6.6-8.7) 05/12/25 04:57 Albumin 4.2 g/dL (3.5-5.2) 05/12/25 04:57 Globulin 3.0 g/dL (1.3-4.6) 05/12/25 04:57 TSH 0.87 uIU/mL (0.27-4.20) 05/12/25 04:57 HCG, Qual Negative (Negative) 05/12/25 04:30 Urine Color Yellow (Yellow) 05/12/25 04:30 Urine Appearance Clear (CLEAR) 05/12/25 04:30 Urine pH 7.0 (5-7) 05/12/25 04:30 Ur Specific [place] 1.014 (1.005-1.030) 05/12/25 04:30 Urine Protein Negative (Negative) 05/12/25 04:30 Urine Glucose (UA) Negative (Normal) 05/12/25 04:30 Urine Ketones Negative (Negative) 05/12/25 04:30 Urine Blood Trace (Negative) A 05/12/25 04:30 Urine Nitrate Negative (Negative) 05/12/25 04:30 Urine Bilirubin Negative (Negative) 05/12/25 04:30 Urine Urobilinogen 1.0 mg/dL (Negative) 05/12/25 04:30 Ur Leukocyte Esterase Negative (Negative) 05/12/25 04:30 Urine RBC 0-2 /hpf (0-2) 05/12/25 04:30 Urine WBC 0-5 /hpf (0-5) 05/12/25 04:30 Ur Squamous Epith Cells 0-5 /hpf (0-5) 05/12/25 04:30 Amorphous Sediment Not Reportable 05/12/25 04:30 Urine Bacteria None seen /hpf (NONE) 05/12/25 04:30 Hyaline Casts 0-4 /lpf H 05/12/25 04:30 Salicylates < 0.3 mg/dL (3-10) L 05/12/25 04:57 Urine Opiates Screen Negative ng/mL (Negative) 05/12/25 04:30 Acetaminophen < 5.0 ug/mL (10-30) L 05/12/25 04:57 Ur Barbiturates Screen Negative ng/mL (Negative) 05/12/25 04:30 Ur Phencyclidine Scrn Negative ng/mL (Negative) 05/12/25 04:30 Ur Amphetamines Screen Negative ng/mL (Negative) 05/12/25 04:30 U Benzodiazepines Scrn Positive ng/mL (Negative) H 05/12/25 04:30 Urine Cocaine Screen Negative ng/mL (Negative) 05/12/25 04:30 U Marijuana (THC) Screen Positive ng/mL (Negative) H 05/12/25 04:30 Ethyl Alcohol < 10 mg/dL (0-10) 05/12/25 04:57 Influenza A (PCR) Negative (Negative) 05/12/25 04:55 Influenza Type B (PCR) Negative (Negative) 05/12/25 04:55 RSV (PCR) Negative (Negative) 05/12/25 04:55 SARS-CoV-2 (PCR) Negative (Negative) 05/12/25 04:55 No radiology studies performed this visit Discharge Plan Discharge Patient Disposition: Xfer Psychiatric Hosp Clinical Impression: Suicidal ideation Condition: Stable Referrals: Gloria Paredes [Primary Care Provider] Print Language: Vietnamese Coding Level of Care Code ED Event Marketing Specialist for Winsome Muñoz
[2025-05-12 05:05] LABS: Hematocrit 41.2 % (36-47); Hemoglobin 13.80 g/dL (11.27-16.99); Mean Corpuscular HGB Conc 33.5 g/dL (30-55); Mean Corpuscular Hemoglobin 29.3 pg (27-33); Mean Corpuscular Volume 87.5 fl (85-98); Nucleated Red Blood Cells % 0 %; Platelet Count 232 10^3/cmm (157-399); Red Blood Count 4.71 10^6/uL (3.85-5.65); White Blood Count 5.62 10^3/uL (3.29-11.43)
[2025-05-12 05:07] LABS: Glucose Urine UA Negative (Normal); Nitrate Urine Negative (Negative); Specific Gravity, Urine 1.014 (1.005-1.030)
[2025-05-12 05:11] LABS: Add Urine Microscopic? YES
[2025-05-12 05:15] LABS: PCP Screen Urine Negative (Negative)
[2025-05-12 05:16] LABS: HCG Qualitative Urine. Negative (Negative)
[2025-05-12 05:30] LABS: Alanine Aminotransferase 31 U/L (0-33); Albumin Level 4.2 g/dL (3.5-5.2); Alkaline Phosphatase 54 U/L (35-105); Anion Gap 13.7 (5-19); Aspartate Amino Transferase 23 U/L (0-32); Blood Urea Nitrogen 9 mg/dL (6-20); Calcium 9.4 mg/dL (8.5-10.5); Carbon Dioxide 25 mmol/L (22-29); Chloride 104 mmol/L (98-107); Globulin 3.0 g/dL (1.3-4.6); Glucose 112 mg/dL (65-115); Osmolality Calculated 287 mOsm/kg (285-295); Potassium 3.7 mmol/L (3.5-5.1); Sodium 139 mmol/L (136-145); Thyroid Stimulating Hormone 0.87 uIU/mL (0.27-4.20); Total Protein 7.2 g/dL (6.6-8.7)
[2025-05-12 05:33] LABS: Acetaminophen < 5.0 ug/mL (10-30); Alcohol Level < 10 mg/dL (0-10); Salicylate < 0.3 mg/dL (3-10)
[2025-05-12 05:34] LABS: Slide Review Slide Review Perform
[2025-05-12 05:42] LABS: Respiratory Syncytial Virus Ce NEGATIVE (Negative); SARS-CoV-2 PCR NEGATIVE (Negative)
[2025-05-12 08:39] VITALS: BP 122/78; PULSE 97; RESP 16; O2SAT 99
== END 2025-05-12 08:41 ==
PROVIDERS: Emergency Provider Emergency Medicine; PCP Nurse Practitioner Adult Health
DX: R45.851 Suicidal ideations (principal); Z11.52 Encounter for screening for COVID-19; F17.290 Nicotine dependence, other tobacco product, uncomplicated
CPT/HCPCS: 80053; 80306; 80307; 81001; 81025; 84443; 85025; 87637; 93005; 99285; J9999

== ENCOUNTER 2025-05-27 08:25 | Emergency (ER) | payer OTHER, SELFPAY ==
[2025-05-27 08:37] VITALS: BP 124/81; PULSE 105; RESP 18; TEMP 37.1; O2SAT 97
--- NOTE | 2025-05-27 08:40 | ED_ITS ---
HPI - Headache General: Chief Complaint: Headache Stated Complaint: migraine Time Seen by Provider: 05/27/25 08:35 History of Present Illness: 24-year-old female with a history of alec jose headaches anxiety, depression and PTSD who presents to the emergency room with a migraine headache for 4 days. Said it started out as just a regular headache and she has taken her prescription medications and [id number]-vav-[id number] medications with no improvement. She said it worsened today. She has had nausea but no vomiting. Photophobia. Generalized headache. No altered mental status. No focal motor deficits. No fevers. Related Data Home Medications ?Medication ?Instructions ?Recorded ?Confirmed cholecalciferol (vitamin D3) 1,250 50,000 unit PO Q7D 05/09/25 05/16/25 mcg (50,000 unit) capsule medroxyprogesterone 150 mg/mL 150 mg IM .[id number] 09/2805/16/25 intramuscular syringe trazodone 100 mg tablet 100 mg PO BEDTIME PRN Insomn ia 05/09/25 05/16/25 brexpiprazole 2 mg tablet (Rexulti) 2 mg PO DAILY 05/0605/16/25 haloperidol 2 mg tablet 2 mg PO DAILY PRN agitation 05/16/25 05/16/25 hydroxyzine pamoate 50 mg capsule 50 mg PO QID PRN anx iety 05/16/25 05/16/25 venlafaxine 37.5 mg tablet 75 mg PO DAILY 05/16/2504/30 Previous Rx's ?Medication ?Instructions ?Recorded thiamine HCl (vitamin B1) 100 mg 100 mg PO DAILY #30 t abs 09/14/23 tablet buspirone 10 mg tablet 10 mg PO BID #60 tabs ondansetron 4 mg disintegrating 4 mg PO Q6H PRN nausea and 05/05/25 tablet vomiting #14 tabs pantoprazole 20 mg tablet,delayed 20 mg PO DAILY #60 t abs 05/16/25 release ubrogepant 100 mg tablet (Ubrelvy) 100 mg PO DAILY PRN chronic 05/16/25 migraine #14 tabs Allergies Allergy/AdvReac Type Severity Reaction Status Date / Time No Known Allergies Allergy Verified 05/16/25 11:21 Review of Systems Narrative: Constitutional symptoms: Negative except as documented in HPI. Skin symptoms: Negative except as documented in HPI. Eye symptoms: Negative except as documented in HPI. ENMT symptoms: Negative except as documented in HPI. Respiratory symptoms: Negative except as documented in HPI. Cardiovascular symptoms: Negative except as documented in HPI. Gastrointestinal symptoms: Negative except as documented in HPI. Genitourinary symptoms: Negative except as documented in HPI. Musculoskeletal symptoms: Negative except as documented in HPI. Neurologic symptoms: Negative except as documented in HPI. Psychiatric symptoms: Negative except as documented in HPI. Endocrine symptoms: Negative except as documented in HPI. PFSH ED PFSH: Medical History (Updated 05/27/25 @ 09:03 by Cha Munoz MD) Psychiatric care Chronic migraine Methamphetamine use disorder, moderate, in sustained remission Alcohol use disorder, severe, in sustained remission DEEPAK (generalized anxiety disorder) Moderate major depression Concentration deficit Tachycardia Bipolar disorder Influenza B Positive test 08/04/2023 for influenza B Depression PTSD (post-traumatic stress disorder) Surgical History No pertinent past surgical history Social History Smoking and tobacco/nicotine status: current every day tobacco/nicotine user (vape) Alcohol intake: former Substance/Drug Use: never Physical Exam Narrative: EXAM NARRATIVE: General: Alert, no acute distress. Skin: warm and dry Head: Normocephalic Neck: Trachea midline Eye: Extraocular movements are intact. Ears, nose, mouth and throat: Oral mucosa moist Respiratory: Respirations are non-labored Musculoskeletal: Normal ROM Gastrointestinal: Abdomen does not appear distended Neurological: Alert and oriented, No focal neurological deficit observed. Psychiatric: Cooperative, appropriate mood & affect. Course Vital Signs: Vital signs: Vital Signs Temperature 98.8 F 05/27/25 08:37 Pulse Rate 105 H 05/27/25 08:37 Respiratory Rate 18 05/27/25 08:37 Blood Pressure 124/81 05/27/25 08:37 Pulse Oximetry 97 05/27/25 08:37 Oxygen Delivery Me thod Room Air 05/27/25 08:37 MDM - Headache Medical Decision Making Medical decision making Patient's reason for coming to the emergency room: Headache Social determinants: Patient is unemployed. She is accompanied by her life partner I reviewed the patient's medical record. Patient has a history of migraine headache I reviewed the patient's current home meds Patient takes ubrogepant at home for migraines Alternate historians: None Differential diagnosis for this patient presenting with severe headache including but not limited to and based on the above HPI, review of systems and physical exam: Intracranial hemorrhage, stroke, migraine, cluster headache, infections such as influenza, covid Orders placed to evaluate differential diagnosis based on the above differential, HPI and physical exam Assessment and plan: Migraine headache - 50 mg IV Benadryl - 30 mg IV Toradol - 10 mg IV Reglan - 8 mg IV Zofran - 60 mg IV Norflex - Discharged home - Discussed plan with patient. Answered any questions. - Evaluation and treatment of this problem were appropriate in the emergency setting. No radiology studies performed this visit Discharge Plan Discharge Patient Disposition: Home Clinical Impression: Migraine headache Condition: Stable Prescriptions: No Action thiamine HCl (vitamin B1) 100 mg tablet 100 mg PO DAILY Qty: 30 0RF hydroxyzine pamoate 50 mg capsule 50 mg PO QID PRN (Reason: anxiety) haloperidol 2 mg tablet 2 mg PO DAILY PRN (Reason: agitation) Rexulti 2 mg tablet 2 mg PO DAILY Ubrelvy 100 mg tablet 100 mg PO DAILY PRN (Reason: chronic migraine) Qty: 14 5RF Rx Instructions: do not exceed 200 mg a day pantoprazole 20 mg tablet,delayed release (DR/EC) 20 mg PO DAILY Qty: 60 1RF buspirone 10 mg tablet 10 mg PO BID Qty: 60 2RF trazodone 100 mg tablet 100 mg PO BEDTIME PRN (Reason: Insomnia) cholecalciferol (vitamin D3) 1,250 mcg (50,000 unit) capsule 50,000 unit PO Q7D Rx Instructions: Tuesday's medroxyprogesterone 150 mg/mL syringe 150 mg IM .[id number] venlafaxine 37.5 mg tablet 75 mg PO DAILY ondansetron 4 mg tablet,disintegrating 4 mg PO Q6H PRN (Reason: nausea and vomiting) Qty: 14 0RF Discharge Orders: Discharge ED (Routine); Ordered 05/27/25 Ordered By: Cha Munoz Referrals: Marcus Nicholson MD [Primary Care Provider, Family Practice] Discharge Diet: Usual diet Discharge Activity: Increase activity as tolerated Patient Instructions: Migraine Headache (ED), Opioid Safety, Pain Management, Patient Portal & Camila Instructions Activity Restrictions/Additional Instructions: [facility]. You have been screened and evaluated and felt safe for discharge. Health conditions do change or evolve sometimes and as such it is important that you follow up with your Primary Doctor to be re checked, 3-5 days is a general good time frame for follow up. You are always welcome to return to the ED for re assessment if your symptoms are worsening or you have new concerns. (Please note that included in your discharge packet is information concerning opioid safety and pain management. This information is given to all patients who are discharged from the ER regardless of their discharge diagnosis or the medicines they usually take or are prescribed.) Print Language: Luxembourgish Coding Level of Care Code ED Cork Pressing Machine Operator for Winsome Muñoz
[2025-05-27] MEDS: diphenhydrAMINE 50 mg/mL SDV 1mL IVP (08:57)
[2025-05-27] MEDS: orphenadrine 30 mg/mL Inj 2 mL 60 MG IVP (09:00)
[2025-05-27] MEDS: metoclopramide 5 mg/mL SDV 2 mL 10 MG IVP (09:11)
[2025-05-27] MEDS: ondansetron 2 mg/ML SDV 2 mL 8 MG IVP (09:16)
== END 2025-05-27 10:08 | disposition home or self-care (01) ==
PROVIDERS: Emergency Provider Emergency Medicine; PCP Family Medicine
DX: G43.909 Migraine, unspecified, not intractable, without status migrainosus (principal); F17.290 Nicotine dependence, other tobacco product, uncomplicated
CPT/HCPCS: 96374; 96375; 99284; J1100; J1200; J1885; J2360; J2405; J2765

== ENCOUNTER 2025-05-29 11:51 | Emergency (ER) | payer OTHER, SELFPAY ==
--- OUTSIDE RECORDS SUMMARY | 2025-05-29 11:56 | XMS_ITS | Continuity of Care Document ---
Author Organization [facility], [facility] ([facility]) Address [address] [place] [address] Assessment No assessment recorded. Plan of Treatment Reminders Order Date Submit Date Provider Last Modified By Organization Details Last Modified Time Details Appointments None recorded. Lab None recorded. Referral None recorded. Procedures None recorded. Surgeries None recorded. Imaging None recorded. Medication Orders ondansetron HCl (PF) 4 mg/2 mL injection solution 2024 [email or web address] Not available 15:17:30 ondansetron 4 mg disintegrat ing tablet 2024 025 [facility], [address], [place], [address], 14:42:18 Patient TargetsNo targets recorded. Patient InstructionsNo instructions recorded. Reason for Referral None Reported. Problems Name Problem SNOMED Code Status Onset Date Resolution Date Notes Provider Name and Address Organization Details Recorded Time Removal of sebaceous cyst Active 012 cyst removed from left eyelid; 01/08/20 12 11:08AM by Mariajose Real LPN, Office Visit; Promoted ; acuity set as *; Not Available [facility] 3 03:07:28 Problem Notes None recorded. Procedures Surgical History Date Name Laterality Status Provider Name and Address Organization Details Recorded Time Eye Surgery completed [facility] 16:22:10 [facility] 16:22:17 Imaging Results None [...] Updated DateTime 5 165.1 cm 33.6 kg/m2 57776.6 6 g 98 % 81 /min 98.5 [degF] 128/88 mm[Hg] Hedy Wang [facility]ella 5 14:39:32 Social History Question Answer Notes LastModified by Organizat ion Details LastModified Time Tobacco Smoking Status Current Every Day Smoker Sharon Awad cj, [facility] 02/17/2024 16:22:03 What Was The [...] ICD10 Code Diagnosis IMO Codes Diagnosis Note [id number] CAMRON GONG [facility] ([facility]) [address] [place] [address] 03/31/2025 14:04:16 04/01/2025 15:20:07 Nausea and vomiting 81340610 R11.2 [id number] Increase po fluids as tolerated. Use Zofran [...] Name 03/31/2025 1 [facility] - [facility]BET[facility] FROM [facility] [employer] (EPO) Lexxie L Adithya [id number] 1 Lexxie L Adithya Notes Date Note Type Note Provider Name and Address Organization Details Recorded Time 03/31/2025 text/html ROS as noted in the HPI walk inwoke this am nausea, vomiting, diarrhea. Patient has not taken anything for symptoms. Family had similar symptoms earlier this week. CAMRON GONG [address] [place] [address], [phone], [facility] 03/31/2025 14:44:20 OBGyn Episode No OBEpisode recorded.
--- OUTSIDE RECORDS SUMMARY | 2025-05-29 11:56 | XMS_ITS | Data Portability ---
Author Organization [facility] Mukesh Cochran [facility] Address [address] [facility] [address] [place] [address] Assessment No assessment recorded. Plan of Treatment [...] [facility], [address], [address], 14:42:18 amoxicillin 500 mg capsule 2024 025 [facility], [address], [place], [address], 05:01:33 prednisone 10 mg tablet 2024 025 [facility], [address], [place], [address], 14:36:37 triamcinolo ne acetonide 0.1 % topical cream 2023 024 [facility], [address], [place], [address], 4 16:39:54 prednisone 20 mg tablet 2023 025 [facility], [address], [place], [address], 13:39:42 Patient TargetsNo targets recorded. Patient Instructions Encounter Date Encounter Id Patient Instructions Last Modified By Organization Details Last Modified Time 10/21/2024 [id number] Increase fluids and follow up for worsening [...] set as *; Not Available [facility] 03:07:28 Problem Notes None recorded. Procedures Surgical History Date Name Laterality Status Provider Name and Address Organization Details Recorded Time Eye Surgery completed [facility]ella 02/17/2024 16:22:10 procedure on elbow completed [facility] 02/17/2024 16:22:17 Imaging Results None recorded. [...] Updated DateTime 5 165.1 cm 30.5 kg/m2 17957.8 g 97 % 95 /min 18 /min 98.1 [degF] 128/70 mm[Hg] ANDREWS OQUENDO [facility] 5 13:39:07 Date Recorded Body height Body mass index (BMI) Body weight Oxygen saturation Heart rate Respiratory rate Body temperature Systolic And Diastolic Provider Name and Address Organization Details Last Updated DateTime 4 165.1 cm 28.8 kg/m2 00632.4 8 g 98 % 85 /min 16 /min 98.5 [degF] 134/74 mm[Hg] Sharon Efrakamron [facility] 4 16:23:41 Date Recorded Body height Body mass index (BMI) Body weight Oxygen saturation Heart rate Body temperature Systolic And Diastolic Provider Name and Address Organization Details Last Updated DateTime 5 165.1 cm 33.6 kg/m2 92305.6 6 g 98 % 81 /min 98.5 [degF] 128/88 mm[Hg] Hedy Wang [facility] 14:39:32 Social History Question Answer Notes LastModified by Organizat ion Details LastModified Time Tobacco Smoking Status Current Every Day Smoker Sharon Awad [facility] [place] - [facility] 02/17/2024 16:22:03 What Was The Date [...] ICD10 Code Diagnosis IMO Codes Diagnosis Note [id number] SUZANNE BELL ASBESTOS REMOVAL WORKER [facility] ([facility]) [address] [place] [address] 02/17/2024 16:17:43 02/17/2024 16:43:28 Dry skin dermatitis [id number] L85.3 Acute urticaria 22908914 9 L50.9 Discused use of prednisone and topical ointment. May use zyrtec in the morning and benadryl at night. [id number] JAXON ZELAYA APRN [facility] ([facility]) [address] [place], [place] [address] 10/21/2024 13:31:02 10/22/2024 14:04:15 Bacterial sinusitis 131031580 J32.9 B96.89 [id number] CAMRON GONG [facility] ([facility]) [address] [place] [address] 03/31/2025 14:04:16 04/01/2025 15:20:07 Nausea and vomiting 69329052 R11.2 [id number] Increase po fluids as tolerated. Use Zofran [...] [facility] (EPO) Nas Haji [id number] Nas Macias Adithya Notes Date Note [...] new exposures. feels well otherwise SUZANNE BELL, [address], [address], [facility] 02/18/2024 09:45:29 10/21/2024 text/html ROS as noted in the HPI Patient c/o cough that's been going on for a couple weeks. She states that she's coughing so hard she feels like she could pass out. She feels hot but is not running a fever. Hurts to breathe. JAXON ZELAYA APRN [address] [place], [address], [facility], L.LAntonellaC. 10/21/2024 13:53:02 03/31/2025 text/html ROS as noted in the HPI walk inwoke this am nausea, vomiting, diarrhea. Patient has not taken anything for symptoms. Family had similar symptoms earlier this week. CALEB VASQUEZ, [facility] [address] [place], [address], [facility] 03/31/2025 14:44:20 OBGyn Episode No OBEpisode recorded.
[2025-05-29 12:08] VITALS: BP 115/82; PULSE 86; TEMP 36.8; O2SAT 100; BMI 33.2
[2025-05-29 13:17] VITALS: BP 123/80; PULSE 89; O2SAT 95
--- NOTE | 2025-05-29 13:26 | CTR_ITS ---
PROCEDURE INFORMATION: Exam: CT Head Without Contrast Exam date and time: 05/29/2025 2:54 PM Age: 24 years old Clinical indication: Pain; Headache; Additional info: Persistent migraine, feels different TECHNIQUE: Imaging protocol: Computed tomography of the head without contrast. Axial, coronal and sagittal reformatted images were created and reviewed. Radiation optimization: All CT scans at this facility use at least one of these dose optimization techniques: automated exposure control; mA and/or kV adjustment per patient size (includes targeted exams where dose is matched to clinical indication); or iterative reconstruction. COMPARISON: CT head wo con* [id number] 10/29/2021 2:43 AM RADIATION DOSE METRICS: Total DLP (mGy-cm): 1002.48 FINDINGS: Brain: No CT evidence of acute intracranial hemorrhage or acute territorial infarction. No significant mass effect or midline shift. Basal cisterns patent. Cerebral ventricles: Normal in size and configuration. Paranasal sinuses: Unremarkable. No fluid levels. Mastoid air cells: Grossly unremarkable. Bones: Unremarkable. No acute fracture. Soft tissues: Grossly unremarkable. CT/CT head wo con* [id number] IMPRESSION: No CT evidence of acute intracranial pathology.
--- NOTE | 2025-05-29 13:38 | W.ED.HA ---
HPI - Headache General: Chief Complaint: Headache Stated Complaint: SAMANIEGO Time Seen by Provider: 05/29/25 13:12 Source: patient and old records reviewed Mode of arrival: ambulatory Limitations: no limitations History of Present Illness: Patient is a 24-year-old female with past medical history of substance abuse, generalized anxiety disorder, bipolar disorder, PTSD, and depression presenting to the emergency department complaining of migraine headache. She was seen here in the emergency department on 05/27 for migraine headache, states that she felt better after discharge but then over the past day it has gotten worse. Significantly worse since 714 this morning, denies history of diagnosed migraine headaches and states that she has never seen neurologist. Reporting sensitivity to light and sound, and notes blurry vision in her right eye. States that she has Ubrelvy for abortive therapy but lost this medication was unable to take it today. Just reports taking ibuprofen and Tylenol. She has no other focal neurological deficits to report, has been ambulatory without difficulty. Denies any head trauma. MD elicited complaint: headache and migraine Pertinent past history: migraines Onset (ago): hour(s) Onset description: suddenly Location: right and retro-orbital Severity: similar to previous episodes Exacerbating factors: light and noise Relieving factors: nothing Associated symptoms: Deny chest pain, fever(s), lightheadedness, nausea, rash or vomiting Related Data Home Medications ?Medication ?Instructions ?Recorded ?Confirmed cholecalciferol (vitamin D3) 1,250 50,000 unit PO Q7D 05/09/25 05/16/25 mcg (50,000 unit) capsule medroxyprogesterone 150 mg/mL 150 mg IM .[id number] 05/09/25 05/16/25 intramuscular syringe trazodone 100 mg tablet 100 mg PO BEDTIME PRN Insomnia 05/09/25 05/16/25 brexpiprazole 2 mg tablet (Rexulti) 2 mg PO DAILY 05/16/25 05/16/25 haloperidol 2 mg tablet 2 mg PO DAILY PRN agitation 05/16/25 05/16/25 hydroxyzine pamoate 50 mg capsule 50 mg PO QID PRN anxiety 05/16/25 05/16/25 venlafaxine 37.5 mg tablet 75 mg PO DAILY 05/16/25 05/16/25 Previous Rx's ?Medication ?Instructions ?Recorded thiamine HCl (vitamin B1) 100 mg 100 mg PO DAILY #30 tabs 09/14/23 tablet buspirone 10 mg tablet 10 mg PO BID #60 tabs 05/22/24 ondansetron 4 mg disintegrating 4 mg PO Q6H PRN nausea and 05/05/25 tablet vomiting #14 tabs pantoprazole 20 mg tablet,delayed 20 mg PO DAILY #60 tabs 05/16/25 release ubrogepant 100 mg tablet (Ubrelvy) 100 mg PO DAILY PRN chronic 05/16/25 migraine #14 tabs Allergies Allergy/AdvReac Type Severity Reaction Status Date / Time No Known Allergies Allergy Verified 05/29/25 12:16 Review of Systems General: Reports: 10 or more systems reviewed and unremarkable except in HPI and below Const: Denies: fever(s), chills or fatigue Eyes: Reports: change in vision ENMT: Denies: throat pain, ear or mastoid pain or nasal discharge Card: Denies: chest pain, palpitations, swelling of feet/ankles or lightheadedness Resp: Denies: dyspnea, productive cough or wheezing GI: Denies: abdominal pain, nausea, vomiting, diarrhea or constipation : Denies: flank pain, difficulty voiding, dysuria or urinary frequency Musc: Denies: neck pain, back pain or joint pain Skin/Breast: Denies: rash Neuro: Reports: headache(s); Denies: numbness in extremities, weakness in extremities, dizziness, behavioral changes or seizure-like activity PFSH ED PFSH: Medical History Psychiatric care Chronic migraine Methamphetamine use disorder, moderate, in sustained remission Alcohol use disorder, severe, in sustained remission DEEPAK (generalized anxiety disorder) Moderate major depression Concentration deficit Tachycardia Bipolar disorder Influenza B Positive test 08/04/2023 for influenza B Depression PTSD (post-traumatic stress disorder) Surgical History No pertinent past surgical history Social History Smoking and tobacco/nicotine status: current every day tobacco/nicotine user (vape) Alcohol intake: former Substance/Drug Use: never Physical Exam Const: COMMON NORMALS: patient oriented x3 and no limitations GENERAL APPEARANCE: cooperative, well developed and anxious ORIENTATION/CONSCIOUSNESS: Yes awake, Yes oriented to person, Yes oriented to place and Yes oriented to time OTHER: Patient seated in dark room, appearing anxious and tearful HENMT: COMMON NORMALS: normocephalic, atraumatic and hearing grossly normal bilaterally HEAD & SCALP: normocephalic and atraumatic Eye: COMMON NORMALS: Equal, round and reactive pupils present, EOMs intact bilaterally and conjunctivae normal CONJUNCTIVA: Yes conjunctivae normal PUPIL: Yes Equal, round and reactive pupils present Neck/C-Spine: COMMON NORMALS: full ROM, supple and no JVD Resp: COMMON NORMALS: normal respiratory effort, No retractions, No use of accessory muscles and clear to auscultation bilaterally AUSCULTATION: clear to auscultation bilaterally Cardio: COMMON NORMALS: no JVD, regular rate, regular rhythm, No clicks present (Cardio), No murmurs present (Cardio) and No rub (Cardio) RATE: regular rate RHYTHM: regular rhythm Extremity: COMMON NORMALS: normal to inspection, full ROM and capillary refill normal Neuro: COMMON NORMALS: patient oriented x3, CN's II-XII intact bilaterally, moves all extremities, no focal motor deficits and no sensory deficits noted SENSORIUM/ORIENTATION: Yes oriented to person, Yes oriented to place and Yes oriented to time Skin: COMMON NORMALS: no rashes or lesions noted GENERAL SKIN EXAM: no rashes or lesions noted Course Vital Signs: Vital signs: Vital Signs Temperature 98.3 F 05/29/25 12:08 Pulse Rate 87 05/29/25 15:05 Blood Pressure 123/80 05/29/25 15:05 Pulse Oximetry 97 05/29/25 15:05 Oxygen Delivery Me thod Room Air 05/29/25 15:05 MDM - Headache Medical Decision Making Patient presented for migraine headache beginning this morning was seen here in the emergency department recently for migraine. States that she had felt better after that visit but the worsening began this morning after she woke up. Sensitivity to light and sound, she had no focal neurological deficits to report nor did she have any physical exam findings of concern other than appearing uncomfortable secondary to her symptoms. Head CT was negative, this was ordered due to her recurrence and stating that it was significantly worse, and she had no prior. She has Ubrelvy for abortive therapy but states she could not find it this morning. IV established after migraine cocktail she felt quite a bit better. She will be referred to neurology for further evaluation of her migraines, stable for discharge at this time as she feels much better and she is told to return with any new or worsening. Lab Data Radiology Impressions Head CT 05/29/25 13:26 IMPRESSION: No CT evidence of acute intracranial pathology. Laboratory Results HCG, Qual Negative (Negative) 05/29/25 14:28 All radiology interpretation(s) finalized by discharge Discharge Plan Discharge Patient Disposition: Home Clinical Impression: Migraine headache Qualifiers: Migraine type: unspecified Status migrainosus presence: with status migrainosus Intractability: intractable Qualified Code(s): G43.911 - Migraine, unspecified, intractable, with status migrainosus Condition: Stable Prescriptions: No Action thiamine HCl (vitamin B1) 100 mg tablet 100 mg PO DAILY Qty: 30 0RF hydroxyzine pamoate 50 mg capsule 50 mg PO QID PRN (Reason: anxiety) haloperidol 2 mg tablet 2 mg PO DAILY PRN (Reason: agitation) Rexulti 2 mg tablet 2 mg PO DAILY Ubrelvy 100 mg tablet 100 mg PO DAILY PRN (Reason: chronic migraine) Qty: 14 5RF Rx Instructions: do not exceed 200 mg a day pantoprazole 20 mg tablet,delayed release (DR/EC) 20 mg PO DAILY Qty: 60 1RF buspirone 10 mg tablet 10 mg PO BID Qty: 60 2RF trazodone 100 mg tablet 100 mg PO BEDTIME PRN (Reason: Insomnia) cholecalciferol (vitamin D3) 1,250 mcg (50,000 unit) capsule 50,000 unit PO Q7D Rx Instructions: Tuesday' medroxyprogesterone 150 mg/mL syringe 150 mg IM .[id number] venlafaxine 37.5 mg tablet 75 mg PO DAILY ondansetron 4 mg tablet,disintegrating 4 mg PO Q6H PRN (Reason: nausea and vomiting) Qty: 14 0RF Discharge Orders: Discharge ED (Routine); Ordered 05/29/25 Ordered By: Stefan Johns Referrals: Marcus Nicholson MD [Primary Care Provider, Family Practice] Patient Instructions: Patient Portal & Camila Instructions Activity Restrictions/Additional Instructions: Discharge Instructions: Migraine Headache DISCHARGE INSTRUCTIONS FOR MIGRAINE HEADACHE Your Diagnosis: You were treated in the emergency department for a migraine headache. Your head CT scan was normal, and your headache improved with medications. What is a Migraine? A migraine is a type of headache that can cause moderate to severe pain, often on one side of the head. It may be accompanied by nausea, vomiting, and sensitivity to light and sound. Migraines are common and treatable. Follow-Up Care: - You have been referred to a neurologist (brain and security compliance specialist) for further evaluation and management of your recurrent migraines - Please schedule this appointment within 2-4 weeks - The neurologist will perform a complete migraine workup and develop a long-term treatment plan for you Home Care Instructions: - Rest in a quiet, dark room when you have a headache - Apply a cool compress to your forehead or back of your neck - Stay well-hydrated by drinking plenty of water - Get adequate sleep (7-9 hours per night) - Try to identify and avoid your migraine triggers (certain foods, stress, lack of sleep, bright lights, strong smells) Medications: - Take any prescribed medications as directed - Awhb-ndi-jhodekf options like ibuprofen 400 mg, naproxen 550 mg, or acetaminophen 1000 mg may help with mild to moderate headaches - Take migraine medications early in the headache for best results - Avoid overusing pain medications, as this can lead to medication overuse headaches (do not use pain relievers more than 2-3 days per week) Regarding Your Medication Question: You asked about taking haloperidol (Haldol), hydroxyzine, trazodone, and brexpiprazole (Rexulti) together. There is an important safety concern with this combination. All four of these medications can prolong the QT interval on your heart rhythm, which in rare cases can lead to a serious heart rhythm problem. This risk is higher when multiple QT-prolonging medications are combined. Important factors that increase this risk include: - Age over 65 years - Heart disease - Low potassium or magnesium levels - Female sex - Certain other medications You should: - Discuss this medication combination with the doctor who prescribed these medications as soon as possible - Ask about whether all four medications are necessary or if safer alternatives exist - Consider having an electrocardiogram (ECG/EKG) to check your heart rhythm - Have your electrolytes (potassium, magnesium) checked - Report any symptoms of heart rhythm problems such as palpitations, dizziness, fainting, or chest pain immediately When to Return to the Emergency Department: Seek immediate medical attention if you experience: - Sudden, severe headache that reaches maximum intensity within seconds to minutes (thunderclap headache) - Headache with fever, stiff neck, confusion, or rash - Headache with weakness, numbness, vision changes, difficulty speaking, or loss of consciousness - Headache after a head injury - Severe headache that is different from your usual migraines - Headache with seizures - Persistent vomiting that prevents you from keeping down fluids or medications - Headache that progressively worsens despite treatment - Symptoms of heart rhythm problems: fainting, severe dizziness, rapid or irregular heartbeat, or chest pain General Advice: - Keep a headache diary to track frequency, triggers, and what helps - Maintain regular sleep and meal schedules - Exercise regularly (but avoid exercise as a trigger during acute headaches) - Manage stress through relaxation techniques - Limit caffeine intake Questions? If you have questions about your care, contact your primary care doctor or the neurology office after your appointment is scheduled. Print Language: German Coding Level of Care Code ED Special Projects Manager for Winsome Muñoz
[2025-05-29] MEDS: ondansetron 2 mg/ML SDV 2 mL 4 MG IVP (13:55)
[2025-05-29] MEDS: diphenhydrAMINE 50 mg/mL SDV 1mL IVP (13:55)
[2025-05-29 14:47] LABS: HCG, Serum Qual Negative (Negative)
[2025-05-29 15:05] VITALS: BP 123/80; PULSE 87; O2SAT 97
[2025-05-29 15:28] VITALS: BP 123/80; PULSE 84; O2SAT 95
== END 2025-05-29 15:31 | disposition home or self-care (01) ==
PROVIDERS: Emergency Provider Physician Assistant; PCP Family Medicine
DX: F17.290 Nicotine dependence, other tobacco product, uncomplicated (principal)
CPT/HCPCS: 70450; 84703; 96374; 96375; 99285; J1100; J1200; J1885; J2405; J7030

== ENCOUNTER 2025-06-03 13:54 | Emergency (ER) | payer OTHER, SELFPAY ==
[2025-06-03 14:18] VITALS: BP 123/80; PULSE 90; TEMP 36.7; O2SAT 98
--- NOTE | 2025-06-03 14:29 | US_ITS ---
WS: [id number] ULTRASOUND SOFT TISSUES RIGHT forearm HISTORY: Pain and swelling pain and swelling at the site of a prior IV. COMPARISON: None available. TECHNIQUE: 2-D and color Doppler imaging is submitted. Ultrasound of the area of concern corresponds to an occlusive thrombus in the RIGHT cephalic vein. Superficial thrombophlebitis corresponds to the area of the palpable nodule which extends over a length of several centimeters. Thrombus begins in the RIGHT antecubital fossa and extends to the hand. US/US soft tissue/extremity [id number] IMPRESSION: Acute, long segment RIGHT cephalic vein superficial thrombophlebitis.
--- NOTE | 2025-06-03 14:51 | ED_ITS ---
HPI - Extremity Problem General: Chief complaint: Extremity Problem,Nontraumatic Stated complaint: urgent care sent, R arm pain, swelling Time Seen by Provider: 06/03/25 14:28 History of Present Illness: 24-year-old female presents emergency ro om with pain in her right forearm. She had an IV 1 week ago. She stopped by urgent care and was directed to the emergency room. She has noticed some redness and tenderness to the area. No fever sweats chills no shortness of breath no chest pain Associated symptoms: Deny chest pain, fever(s) or rash Related Data Home Medications ?Medication ?Instructions ?Recorded ?Confirmed cholecalciferol (vitamin D3) 1,250 50,000 unit PO Q7D 05/09/25 05/16/25 mcg (50,000 unit) capsule medroxyprogesterone 150 mg/mL 150 mg IM .[id number] 09/2805/16/25 intramuscular syringe trazodone 100 mg tablet 100 mg PO BEDTIME PRN Insomn ia 05/09/25 05/16/25 brexpiprazole 2 mg tablet (Rexulti) 2 mg PO DAILY 05/0605/16/25 haloperidol 2 mg tablet 2 mg PO DAILY PRN agitation 05/16/25 05/16/25 hydroxyzine pamoate 50 mg capsule 50 mg PO QID PRN anx iety 05/16/25 05/16/25 venlafaxine 37.5 mg tablet 75 mg PO DAILY 05/16/2504/30 Previous Rx's ?Medication ?Instructions ?Recorded thiamine HCl (vitamin B1) 100 mg 100 mg PO DAILY #30 t abs 09/14/23 tablet buspirone 10 mg tablet 10 mg PO BID #60 tabs ondansetron 4 mg disintegrating 4 mg PO Q6H PRN nausea and 05/05/25 tablet vomiting #14 tabs pantoprazole 20 mg tablet,delayed 20 mg PO DAILY #60 t abs 05/16/25 release ubrogepant 100 mg tablet (Ubrelvy) 100 mg PO DAILY PRN chronic 05/16/25 migraine #14 tabs Allergies Allergy/AdvReac Type Severity Reaction Status Date / Time No Known Allergies Allergy Verified 06/03/25 14:23 Review of Systems Const: Denies: fever(s) or chills Card: Denies: chest pain Resp: Denies: dyspnea GI: Denies: abdominal pain Skin/Breast: Denies: rash PFSH ED PFSH: Medical History Psychiatric care Chronic migraine Methamphetamine use disorder, moderate, in sustained remission Alcohol use disorder, severe, in sustained remission DEEPAK (generalized anxiety disorder) Moderate major depression Concentration deficit Tachycardia Bipolar disorder Influenza B Positive test 08/04/2023 for influenza B Depression PTSD (post-traumatic stress disorder) Surgical History No pertinent past surgical history Social History Smoking and tobacco/nicotine status: current every day tobacco/nicotine user (vape) Alcohol intake: former Substance/Drug Use: never Physical Exam Const: COMMON NORMALS: no acute distress GENERAL APPEARANCE: cooperative and comfortable ORIENTATION/CONSCIOUSNESS: Yes awake, Yes oriented to person, Yes oriented to place and Yes oriented to time HENMT: COMMON NORMALS: normocephalic, atraumatic and hearing grossly normal bilaterally HEAD & SCALP: normocephalic and atraumatic Resp: COMMON NORMALS: normal respiratory effort, No retractions, No use of accessory muscles and clear to auscultation bilaterally AUSCULTATION: clear to auscultation bilaterally Cardio: COMMON NORMALS: regular rate, regular rhythm and No murmurs present (Cardio) RATE: regular rate RHYTHM: regular rhythm Extremity: COMMON NORMALS: capillary refill normal, no clubbing, cyanosis or edema, no calf tenderness and no pedal edema OTHER: Mild tenderness palpation over the forearm along the lateral edge. Tender ropey structure underlying skin. No induration minimal erythema Neuro: SENSORIUM/ORIENTATION: Yes oriented to person, Yes oriented to place and Yes oriented to time Skin: COMMON NORMALS: no rashes or lesions noted GENERAL SKIN EXAM: no rashes or lesions noted Course Vital Signs: Vital signs: Vital Signs Temperature 98.1 F 06/03/25 14:18 Pulse Rate 90 06/03/25 14:18 Blood Pressure 123/80 06/03/25 14:18 Pulse Oximetry 98 06/03/25 14:18 Oxygen Delivery Me thod Room Air 06/03/25 14:18 MDM - Extremity (Nontraumatic) Medical Decision Making Medical decision making Social determinants: None I reviewed the patient's medical record. I reviewed the patient's current home meds. Alternate historians: None Differential diagnosis: Cellulitis versus superficial thrombophlebitis Lab Review: None Imaging: Ultrasound right upper extremity shows superficial thrombophlebitis Assessment of risk Level of risk: Low Hospitalization considerations: No hospitalization indicated Reexamination: Unchanged Assessment and plan: Ultrasound consistent with exam findings of superficial thrombophlebitis. Recommend moist heat elevate whenever possible and [id number] anti-inflammatories follow-up with primary care All radiology interpretation(s) finalized by discharge Discharge Plan Discharge Patient Disposition: Home Clinical Impression: Superficial thrombophlebitis Condition: Stable Prescriptions: No Action thiamine HCl (vitamin B1) 100 mg tablet 100 mg PO DAILY Qty: 30 0RF hydroxyzine pamoate 50 mg capsule 50 mg PO QID PRN (Reason: anxiety) haloperidol 2 mg tablet 2 mg PO DAILY PRN (Reason: agitation) Rexulti 2 mg tablet 2 mg PO DAILY Ubrelvy 100 mg tablet 100 mg PO DAILY PRN (Reason: chronic migraine) Qty: 14 5RF Rx Instructions: do not exceed 200 mg a day pantoprazole 20 mg tablet,delayed release (DR/EC) 20 mg PO DAILY Qty: 60 1RF buspirone 10 mg tablet 10 mg PO BID Qty: 60 2RF trazodone 100 mg tablet 100 mg PO BEDTIME PRN (Reason: Insomnia) cholecalciferol (vitamin D3) 1,250 mcg (50,000 unit) capsule 50,000 unit PO Q7D Rx Instructions: Tuesday' medroxyprogesterone 150 mg/mL syringe 150 mg IM .[id number] venlafaxine 37.5 mg tablet 75 mg PO DAILY ondansetron 4 mg tablet,disintegrating 4 mg PO Q6H PRN (Reason: nausea and vomiting) Qty: 14 0RF Discharge Orders: Discharge ED (Routine); Ordered 06/03/25 Ordered By: Chris Noel Referrals: Marcus Nicholson MD [Primary Care Provider, Family Practice] Patient Instructions: Superficial Thrombophlebitis (ED), Opioid Safety, Pain Management, Patient Portal & Camila Instructions Activity Restrictions/Additional Instructions: Thank you for choosing [facility] for your healthcare needs today. It is very important that you follow up as instructed or that you return to the Emergency Department should you have concerns or if your condition changes or worsens in any way. Emergency department visits are focused on emergent conditions, in some cases you may require further evaluation on an outpatient basis. You were seen in the emergency room with a superficial thrombophlebitis. There is no anticoagulation needed for this. Recommend moist heat to the area and anti-inflammatories such as Aleve or ibuprofen. (Please note that included in your discharge packet is information concerning opioid safety and pain management. This information is given to all patients were discharged from the ER regardless of their discharge diagnosis or the medicines they usually take or are prescribed.) Print Language: Lithuanian Coding Level of Care Code ED Validation Engineer for [employer] Muñoz
== END 2025-06-03 15:25 | disposition home or self-care (01) ==
PROVIDERS: Emergency Provider Family Medicine; PCP Family Medicine
DX: I80.8 Phlebitis and thrombophlebitis of other sites (principal); F17.290 Nicotine dependence, other tobacco product, uncomplicated
CPT/HCPCS: 76882; 99284